=== PATIENT | female | born 1955 | race Caucasian/White ===

== ENCOUNTER 2024-03-17 13:10 | Emergency (ER) | payer MEDICARE, SELFPAY ==
[2024-03-17 13:12] VITALS: BP 171/83; PULSE 126; RESP 16; TEMP 36.3; O2SAT 99
[2024-03-17 13:25] VITALS: BMI 42.0
--- NOTE | 2024-03-17 13:51 | CT_ITS ---
STUDY: CT Abdomen And Pelvis W/ Contrast Injection 03/17/2024 2:41 PM REASON FOR EXAM: Female, 68 years old. Abdominal pain L flank pain Individualized dose optimization techniques were used for this CT. COMPARISON: 08/11/2014 TECHNIQUE: CT Abdomen And Pelvis W/ Contrast Injection IV 100mL [id number] FINDINGS: There are atherosclerotic calcifications of visualized coronary arteries. 5.3mm right lower lobe subpleural nodule. Stable hypodensities in the liver. Normal gallbladder and extrahepatic biliary system. Normal spleen. Normal pancreas. Normal bilateral adrenal glands. No acute findings of the right kidney. No acute findings of the left kidney. Normal visualized stomach. Normal small intestine. There are multiple colonic diverticula consistent with diverticulosis. The appendix is visualized and appears normal. There are calcifications of the abdominal aorta. This is consistent for atherosclerotic disease. There is NO abdominal aortic aneurysm. Vascular workup can be obtained based on clinical correlation. Normal inferior vena cava. Subcentimeter mesenteric lymph nodes. Dictated There is atrophy of the uterus. There is an umbilical hernia containing fat. There are diffuse degenerative changes of the visualized lumbar spine. Degenerative findings in the uterus. There is bilateral neural foraminal stenosis at L4-5 and L5-S1. CT/Abdomen/Pelvis W IV Cont ONLY IMPRESSION: Urinary bladder wall has wall thickening. This can be related to a partially contractile state. However, a cystitis is not excluded. Urinalysis should be performed in an effort to exclude cystitis. Other findings as above. Electronically Signed: Philip Harris MD at 14:45 EST ,
[2024-03-17 14:05] LABS: Bacteria 0 SEEN /hpf (None Seen); Mucous, Urine 0 SEEN /hpf (<or=2+); Squamous Epithelial Cells - UA 0 SEEN /hpf (5-10)
[2024-03-17 14:07] LABS: Absolute Lymphocyte Count 2.11 X10^3/uL (0.83-4.51); Absolute Neutrophil Count 13.9 X10^3/uL (2.0-7.7); Basophil# 0.07 X10^3/uL; Basophil% 0.4 % (0-1); Eosinophil# 0.02 X10^3/uL; Eosinophils% 0.1 % (0-5); Hemoglobin 14.6 g/dL (12.0-15.0); Lymphocyte # 2.11 X10^3/ul (0.83-4.51); Mean Corp Hgb Conc 33.2 g/dL (32-36); Mean Corpuscular Hgb 28.2 pg (27.0-32.0); Mean Corpuscular Volume 84.9 fL (81-99); Mean Platelet Vol. 9.6 fl (6.2-12.0); Monocyte# 1.41 X10^3/uL; NRBC Flagged by Analyzer 0 % (0-5); Neutrophil # 13.87 X10^3/uL (2.7-7.7); Platelet Count 335 K/mm3 (150-450); RBC Distribution Width CV 13.5 % (11.6-14.6); RBC Distribution Width SD 41.8 fl (35.1-43.9); Red Blood Count 5.18 M/mm3 (4.2-5.4); White Blood Count 17.6 K/mm3 (4.4-11.0)
[2024-03-17 14:21] LABS: Color, Urine Yellow (Yellow); Glucose, Dipstick Normal (Normal); Ketone-Dipstick Negative (Negative); Leukocyte Esterase-Dipstick 500 /ul (Negative); Nitrite-Dipstick Negative (Negative); Occult Blood-Urine 250 /ul (Negative); Protein-Dipstick 15 mg/dl (Negative); Specific Gravity, Urine 1.005 (1.002-1.030); Urine Bilirubin Dipstick Negative (Negative); Urine Clarity Clear (Clear); Urine Urobilinogen Normal (Normal); Urine pH 6.5 (5.0 - 8.0)
[2024-03-17 14:26] LABS: Red Blood Cells-Urine 0-5 SEEN /hpf (0-5); White Blood Cells 0-5 SEEN /hpf (0-5)
[2024-03-17 14:43] LABS: Anion Gap 10 (5-15); BUN 13 mg/dL (7-18); BUN/Creat Ratio 13.1 RATIO (10-20); Calcium,Total 9.5 mg/dL (8.5-10.1); Chloride 106 mmol/L (98-107); Creatinine, Serum 0.99 mg/dL (0.55-1.02); EST Glomerular Filtration Rate 59 mL/min (>60); Est Glom Filt Rate - Afr Amer 72 mL/min (>60); Estimated Creatinine Clearance 56.11 ml/min; Glucose 124 mg/dL (74-106); Potassium 3.6 mmol/L (3.5-5.1); Sodium Level 138 mmol/L (136-145)
--- NOTE | 2024-03-17 15:12 | EDS_ITS ---
HPI <MONICA Boyce - Last Filed: 03/17/24 18:46> HPI - Female History of Present Illness Chief Complaint: Complaint Narrative Narrative: Patient presenting today due to urinary frequency, urgency, dysuria that started yesterday. She reports hematuria started this morning. She feels like she could have a UTI. She also reports that she has had intermittent left lower quadrant abdominal pain that radiates to her left flank for several weeks but has noticed it more over the last 3 days. She denies any history of kidney stones. She denies fever, chills, nausea, and vomiting. PFSH <MONICA Boyce - Last Filed: 03/17/24 18:46> PFSH Home Medications ?Medication ?Instructions ?Recorded ?Last Taken ?Type ciprofloxacin HCl 500 mg tablet 500 mg PO BID ##20 08/11/14 Unknown Rx metronidazole 500 mg tablet 500 mg PO Q8 #30 tabs 08/11/14 Unknown Rx nitrofurantoin 100 mg PO Q12H 5 days #9 caps 03/17/24 Unknown Rx monohydrate/macrocrystals 100 mg capsule (Macrobid) Allergy/AdvReac Type Severity Reaction Status Date / Time cefaclor (From Ceclor) Allergy Shortness Verified 03/17/24 13:12 of breath cephalexin monohydrate (From Allergy Shortness Verified 03/17/24 13:12 Keflex) of breath Social History Smoking Status: Current every day smoker tobacco type: cigarettes ROS <MONICA Boyce - Last Filed: 03/17/24 18:46> ROS ED Constitutional Constitutional ED: Denies chills or fever(s) Cardiovascular Cardiovascular: Denies chest pain Respiratory/Chest Respiratory/Chest: Denies dyspnea Gastrointestinal Gastrointestinal: Reports abdominal pain; Denies constipation, diarrhea, nausea or vomiting Genitourinary Genitourinary ED: Reports dysuria, hematuria and urinary frequency Musculoskeletal Musculoskeletal: Reports back pain Integumentary Denies rash Neurologic Neurologic: Denies weakness EXAM <MONICA Boyce - Last Filed: 03/17/24 18:46> Physical Exam Const Vital Signs: 03/17/24 13:12 Temperature 97.4 F L Temperature Source Temporal Pulse Rate 126 H Respiratory Rate 16 Blood Pressure 171/83 H Blood Pressure Mean 112 Pulse Ox 99 Oxygen Delivery Method Room Air Positive well nourished, well developed and no apparent distress General Appearance ED: well developed HEENT Reports normocephalic and head/scalp atraumatic Mouth ED: Yes moist mucous membranes normal Eyes PERRL and EOMs intact bilaterally Neck full ROM and supple Chest Wall inspection of chest normal Resp normal respiratory effort and clear to auscultation bilaterally Cardio regular rate and regular rhythm GI soft to palpation, non-distended and no masses GI Narrative: Left lower quadrant tenderness to palpation with no rigidity or guarding. Back/Spine normal ROM and normal to inspection General Back: Negative for CVA tenderness Thoracic Spine / Upper Back: Negative for thoracic spinal tenderness Lumbar Spine / Lower Back: Negative for lumbar spinal tenderness Extremity normal to inspection and full ROM Neuro oriented x3, CN's II-XII intact bilaterally, moves all extremities, no focal motor deficits and no sensory deficits noted Sensorium / Orientation: awake and alert Psych mental status grossly normal and thought process normal Skin no rashes or lesions noted and no wounds <Dr. Kevan Rosario DO - Last Filed: 03/17/24 15:24> Physical Exam Const Vital Signs: 03/17/24 13:12 Temperature 97.4 F L Temperature Source Temporal Pulse Rate 126 H Respiratory Rate 16 Blood Pressure 171/83 H Blood Pressure Mean 112 Pulse Ox 99 Oxygen Delivery Method Room Air MDM <MONICA Boyce - Last Filed: 03/17/24 18:46> [facility] Narrative Medical decision making narrative: Patient presenting today due to urinary frequency, urgency, and dysuria that started yesterday, hematuria started today. She did have an episode of urinary incontinence yesterday where she felt she had to go to the bathroom but could not make it there in time. Examination does sound consistent with a UTI. She has had intermittent left flank/left lower quadrant abdominal pain off and on for a while but has noticed it more frequently over the past 3 days. I offered analgesia and she declined. Labs obtained, she has a WBC of 17.6, this was also slightly elevated in previous labs. Her BMP is unremarkable. UA shows 500 leukocytes and occult blood. CT scan of the abdomen and pelvis was obtained to assess for kidney stone, pyelonephritis, mass, and other etiology. This shows bladder wall thickening but otherwise is unremarkable. Given she does have symptoms of cystitis, we will start her on Macrobid with first dose here. Urinary culture obtained. She reports that her sister does have a history of bladder cancer, I did refer the patient to urology and recommended that she fo llow-up given her hematuria and family history. She will be discharged home in stable condition. Lab Data Labs: Laboratory Results - last 24 hr 03/17/24 14:00 WBC 17.6 H RBC 5.18 Hgb 14.6 Hct 44.0 MCV 84.9 MCH 28.2 MCHC 33.2 RDW Std Deviation 41.8 RDW Coeff of Scarlett 13.5 Plt Count 335 MPV 9.6 Immature Gran % (Auto) 0.500 Neut % (Auto) 79.0 H Lymph % (Auto) 12.0 L [place] % (Auto) 8.0 Eos % (Auto) 0.1 Baso % (Auto) 0.4 Absolute Neuts (auto) 13.9 H Absolute Lymphs (auto) 2.11 Nucleated RBC % 0 Sodium 138 Potassium 3.6 Chloride 106 Carbon Dioxide 22.0 Anion Gap 10 BUN 13 Creatinine 0.99 Estim Creat Clear Calc 56.11 Est GFR (MDRD) Af Amer 72 Est GFR (MDRD) Non-Af 59 L BUN/Creatinine Ratio 13.1 Glucose 124 H Calcium 9.5 Urine Color Yellow Urine Clarity Clear Urine pH 6.5 Ur Specific [place] 1.005 Urine Protein 15 H Urine Glucose (UA) Normal Urine Ketones Negative Urine Occult Blood 250 H Urine Nitrite Negative Urine Bilirubin Negative Urine Urobilinogen Normal Ur Leukocyte Esterase 500 H Urine RBC 0-5 SEEN Urine WBC 0-5 SEEN Ur Squamous Epith Cells 0 SEEN Urine Bacteria 0 SEEN Urine Mucus 0 SEEN Radiography Diagnostic Testing: Clinical Impression(s) from Imaging Studies Abdomen/Pelvis CT 03/17/24 13:51 IMPRESSION: Urinary bladder wall has wall thickening. This can be related to a partially contractile state. However, a cystitis is not excluded. Urinalysis should be performed in an effort to exclude cystitis. Other findings as above. Electronically Signed: Philip Harris MD at 14:45 EST , <Dr. Kevan Rosario, DO - Last Filed: 03/17/24 15:24> [facility] Lab Data Attestation: I reviewed the patient's lab results. Labs: Laboratory Results - last 24 hr 03/17/24 14:00 WBC 17.6 H RBC 5.18 Hgb 14.6 Hct 44.0 MCV 84.9 MCH 28.2 MCHC 33.2 RDW Std Deviation 41.8 RDW Coeff of Scarlett 13.5 Plt Count 335 MPV 9.6 Immature Gran % (Auto) 0.500 Neut % (Auto) 79.0 H Lymph % (Auto) 12.0 L [place] % (Auto) 8.0 Eos % (Auto) 0.1 Baso % (Auto) 0.4 Absolute Neuts (auto) 13.9 H Absolute Lymphs (auto) 2.11 Nucleated RBC % 0 Sodium 138 Potassium 3.6 Chloride 106 Carbon Dioxide 22.0 Anion Gap 10 BUN 13 Creatinine 0.99 Estim Creat Clear Calc 56.11 Est GFR (MDRD) Af Amer 72 Est GFR (MDRD) Non-Af 59 L BUN/Creatinine Ratio 13.1 Glucose 124 H Calcium 9.5 Urine Color Yellow Urine Clarity Clear Urine pH 6.5 Ur Specific [place] 1.005 Urine Protein 15 H Urine Glucose (UA) Normal Urine Ketones Negative Urine Occult Blood 250 H Urine Nitrite Negative Urine Bilirubin Negative Urine Urobilinogen Normal Ur Leukocyte Esterase 500 H Urine RBC 0-5 SEEN Urine WBC 0-5 SEEN Ur Squamous Epith Cells 0 SEEN Urine Bacteria 0 SEEN Urine Mucus 0 SEEN Radiography Diagnostic Testing: Clinical Impression(s) from Imaging Studies Abdomen/Pelvis CT 03/17/24 13:51 IMPRESSION: Urinary bladder wall has wall thickening. This can be related to a partially contractile state. However, a cystitis is not excluded. Urinalysis should be performed in an effort to exclude cystitis. Other findings as above. Electronically Signed: Philip Harris MD at 14:45 EST , Treatment and Re-Evaluation Narrative: I have personally performed a face to face assessment of the patient and have reviewed the TARI Note. I performed a substantive portion of the visit including all aspects of the following. My medina findings include: History is 68-year-old female noted that yesterday she began to have urinary frequency urgency pressure and some dysuria. She noted hematuria today. She has been having a intermittent sharp pain in the left side of her abdomen for a wild. She states that it is very minimal family states it seems more than minimally. No reported fevers. Exam is well-appearing female sitting comfortably in a chair. No CVA tenderness. She is afebrile she clinically appears well. Her initial heart rate of 126 out in triage was after ambulating then. Sitting there in the chair she is about 92 bpm Medical Decision Making white count nonspecifically is elevated at 17.6. 79 neutrophils. Normal creatinine glucose 124. Urinalysis 3-5 red cells are 5 white cells 0 bacteria seen negative nitrates. She is positive for leukocyte esterase. Clinically her symptoms are consistent with a UTI however microscopically does not support it. Her CT is rather unremarkable fluid findings to explain her symptomology. I do not think it is unreasonable to treat her clinical symptoms with an antibiotic do a urine culture and have the patient follow-up or return if worsening. She is comfortable this plan Discharge Plan Triage Chief Complaint: Complaint ED Midlevel Provider: Valerie Magana ED Provider: Kevan Rosario Dx/Rx/DC Orders Clinical Impression: Hematuria, Chronic left-sided back pain, Urinary frequency Instructions: ED Hematuria, ED Cystitis Female Adult Prescriptions: New nitrofurantoin monohyd/m-cryst [Macrobid] 100 mg capsule 100 mg PO Q12H 5 Days Qty: 9 0RF Rx Instructions: must administer with a meal/food No Action metronidazole 500 MG tablet 500 mg PO Q8 Qty: 30 0RF ciprofloxacin HCl 500 MG tablet 500 mg PO BID Qty: 20 0RF Primary Care Provider: Chavo Lr Referrals: Gena Miner MD [Med Staff - Active Staff] - 3-5 Days Chavo Lr MD [Primary Care Provider] - 5-7 Days Activity Restrictions/Additional Instructions: Follow-up with urology d return for any worsening of your symptoms. Print Language: Serbian Disposition Disposition: Home, Self Care Discharge Date/Time: 03/17/24 15:30
[2024-03-17] MEDS: Nitrofurantoin Macrocrystals 100 MG Capsule PO (15:20)
== END 2024-03-17 15:30 | disposition home or self-care (01) ==
PROVIDERS: Physician Assistant; Emergency Provider Emergency Medicine; PCP Family Medicine; Visit Provider Emergency Medicine
DX: R35.0 Frequency of micturition (principal); R31.9 Hematuria, unspecified; R10.32 Left lower quadrant pain; G89.29 Other chronic pain; M54.9 Dorsalgia, unspecified; F17.210 Nicotine dependence, cigarettes, uncomplicated; Z80.52 Family history of malignant neoplasm of bladder
CPT/HCPCS: 74177; 80048; 81001; 85025; 87077; 87086; 87088; 87186; 99282; Q9967

== ENCOUNTER 2024-08-13 04:03 | Inpatient (IN) | payer MEDICARE, SELFPAY ==
[2024-08-13] VITALS (15 sets, daily range): BP systolic 106–204; BP diastolic 56–112; PULSE 65–117; RESP 14–18; TEMP 36.2–36.9; O2SAT 94–99; BMI 44.8; BMI 44.3
--- NOTE | 2024-08-13 04:51 | CT_ITS ---
PROCEDURE: CTA ABD/PELVIS W/WO CONTRAST 08/13/2024 REASON FOR EXAM: GI BLEED TECHNIQUE: CTA ABD/PELVIS W/WO CONTRAST multiplanar Coronal and Sagittal images were obtained. CONTRAST: VOLUME: mL One or more dose reduction techniques were used (e.g., Automated exposure control, adjustment of the mA and/or kV according to patient size, use of iterative reconstruction technique). RADIATION DOSE SUMMARY: CTDlvol: mGy DLP: mGycm COMPARISON: 03-17-2024 FINDINGS: Newly developed long segment of mural thickening and edema of the distal transverse colon involving the splenic flexure and proximal descending colon with stranding of the pericolic fat and congested vascular arcades, possibly inflammatory. Related endoluminal hyperdense areas suggestive of active bleeding. Advise clinical and laboratory correlation. Patent supra-renal and infrarenal abdominal aorta showing patent enhancing lumen with diffuse irregular intimal thickening, scattered calcified and fibrofatty atheromatous plaques. No tight stenosis, aneurysmal dilatation or dissecting intimal flaps. The superior mesenteric artery and its main branches appears patent and showing non significant atherosclerotic changes with no significant stenotic lesions. The celiac artery and its branches appear patent and showing non significant atherosclerotic changes with no significant stenotic lesions. Moderate ostial stenosis of the inferior mesenteric artery with attenuated yet patent rest of its course. Patent renal arteries showing non significant ostial atheromatous plaques. No significant stenotic lesions. Dual supply of the right kidney. Both common iliac, internal and external iliac arteries appear patent and homogenously enhancing showing non-significant atherosclerotic changes with no significant stenotic lesions. No evidence of luminal thrombosis or stenotic lesions. Stable mild colonic diverticulosis. No diverticulitis. The small bowel loops are unremarkable. Mild gastric wall thickening, possibly gastritis. Stable hepatic bi-lobar cysts. No dilated biliary tracts. Gall bladder shows no intraluminal dense calculi. Clear surrounding fat planes. Normal appearance of the pancreas. No obvious pancreatic masses. The spleen, adrenals and IVC are unremarkable. Both kidneys are of average size and shape with rather preserved parenchymal thickness. No renal calculi. No hydronephrosis. Regular distension of the urinary bladder with no calculi, masses or diverticular out pouches. No obvious masses related to the pelvic organs. No ascites. No free peritoneal air. No pathologically enlarged lymph nodes. Scanned osseous structures show thoracolumbar spondylosis. Scanned lung bases show basal atelectatic plates. CT/CTA Abd/Pelvis W/WO Contrast IMPRESSION: Newly developed long segment of mural thickening and edema of the left colon wi th stranding of the pericolic fat and congested vascular arcades, possibly inflammatory. Related endoluminal hyperdense areas s uggestive of active bleeding. Advise clinical and laboratory correlation. Patent abdominal aorta and its branches showing atherosclerotic changes with no aneurysmal dilatation, stenotic lesions or hypodense thrombi. Stable rest of the study findings Reading [facility] [id number]
--- OUTSIDE RECORDS SUMMARY | 2024-08-13 05:01 | XMS RPT_ITS | CCD ---
Author Organization [facility] Care Team Providers Care Data Consultant Name Role Phone Preston Lr MD Primary Care Provider Preston Lr Primary Care Unavailable Kevan Rosario Attending Unavailable Allergies Allergy Classification Reported Allergen(s) Allergy Type Date of Onset Reaction(s) Facility (18 sources) Cephalexin Drug Allergy 07-27-2006 [facility] (1 source) Cefaclor Drug Allergy 03-17-2024 [facility] (1 source) Cephalexin Drug Allergy 03-17-2024 [facility] Medications Current Medications Medication Drug Class(es) Dates Sig (Normalized) Sig (Original) acetaminophen 250 mg / aspirin 250 mg / caffeine 65 mg oral tablet (18 sources) Platelet Aggregation Inhibitor, Nonsteroidal Anti-inflammatory Drug, Central Nervous System Stimulant, Methylxanthine Start: 08-20-2014 take 2 tablets by mouth every twelve hours as needed Aspirin-Acetaminoph en-Caffeine (EXCEDRIN MIGRAINE) 250-250-65 mg per tablet Take 2 tablets by mouth twice daily as needed for Pain. 0 08/20/2014 Active Comment on above: Take 2 tablets by [facility] twice daily as needed for Pain. acetaminophen 325 mg / HYDROcodone bitartrate 5 mg oral tablet (18 sources) Opioid Agonist Start: 07-15-2016 take 1 tablet by mouth every six hours as needed HYDROcodone-acetami nophen (NORCO) 5-325 mg per tablet Take 1 tablet by mouth every 6 hours as needed. 20 tablet 07/15/2016 Active Comment on above: [facility] tablet by [facility] 6 hours as needed. ciprofloxacin 500 mg oral tablet (1 source) Quinolone Antimicrobial Start: 10-07-2021 End: 10-14-2021 take 1 tablet by mouth twice daily ciprofloxacin HCl (CIPRO) 500 mg tablet Take 1 tablet by mouth twice daily for 7 days. 14 tablet 0 10/07/2021 10/14/2021 Active Comment on above: Take 1 tablet by brissa th twice daily for 7 days. ibuprofen 200 mg oral tablet (18 sources) Nonsteroidal Anti-inflammatory Drug take 3 tablets by mouth every four hours as needed ibuprofen (MOTRIN) 200 mg tablet Take 600 mg by mouth every 4 hours as needed. Active Comment on above: Take 600 mg by mouth every 4 hours as needed. iv contrast (will be provided with radiology test) (1 source) Start: 10-13-2021 End: 10-14-2021 iv contrast (will be provided with radiology test) Indications: Liver lesion MRI Liver Inject, intravenously, once for 1 dose. No IV access, insert saline lock prior to the beginning of sedation, infusion, injection of imaging exam. Discontinue saline lock post exam. If Pt. has a central line or IVAD, may access for administration according to line specific nursing protocol. Once exam is complete flush line and de-access according to line specific nursing protocol in the MR contrast administration guidelines link. 1 Each 0 10/13/2021 10/14/2021 Active Comment on above: MRI Liver Inject, in travenously, once for 1 dose. No IV access, insert saline lock prior to the beginning of sedation, infusion, injection of imaging exam. Discontinue saline lock post exam. If Pt. has a central line or IVAD, may access for administration according to line specific nursing protocol. Once exam is complete flush line and de-access according to line specific nursing protocol in the MR contrast administration guidelines link. metroNIDAZOLE 500 mg oral tablet (1 source) Nitroimidazole Antimicrobial Start: 10-07-2021 End: 10-14-2021 take 1 tablet by mouth every eight hours metroNIDAZOLE (FLAGYL) 500 mg tablet Take 1 tablet by mouth every 8 hours for 7 days. 21 tablet 0 10/07/2021 10/14/2021 Active Comment on above: Take 1 tablet by brissa th every 8 hours for 7 days. perflutren lipid microspheres 1.3 mL in NaCl (PF) 0.9% 10 mL injection (DEFINITY) (10 sources) Start: 10-13-2021 End: 01-12-2023 perflutren lipid microspheres 1.3 mL in NaCl (PF) 0.9% 10 mL injection (DEFINITY) 125 ml sodium chloride 9 mg/ml prefilled syringe (10 sources) Start: 10-13-2021 End: 01-12-2023 sodium chloride 0.9 % (flush) 10 mL (BD POSIFLUSH) Completed/Discontinued Medications Medication Drug Class(es) Dates Sig (Normalized) Sig (Original) polyethylene glycol 3350 167334 mg / potassium chloride 2970 mg / sodium bicarbonate 6740 mg / sodium chloride 5860 mg / sodium sulfate 48389 mg powder for oral solution (1 source) Osmotic Laxative Start: 11-09-2021 End: 11-09-2021 peg 3350-Electrolytes (GOLYTELY) 236-22.74-6.74 -5.86 gram suspension Take 4,000 mL by mouth one time only for 1 dose. 1 Each 0 11/09/2021 11/09/2021 Comment on above: Take 4,000 mL by brissa th one time only for 1 dose. Problems Active Problems Problem Classification Problem Date Documented Da te Episodic/Chronic Diabetes mellitus without complication (1 source) Increased glucose level; Translations: [Other abnormal glucose] Episodic Gastrointestinal hemorrhage (2 sources) Hematochezia; Translations: [Melena] Episodic Genitourinary symptoms and ill-defined conditions (2 sources) Increased frequency of urination; Translations: [Frequency of micturition] Onset: 04-07-2024 Episodic Heart valve disorders (20 sources) Mitral valve prolapse; Translations: [Nonrheumatic mitral (valve) prolapse] Onset: 10-09-2014 10-09-2014 Chronic Immunizations and screening for infectious disease (2 sources) Viral screening status; Translations: [Encounter for screening for other viral diseases] Episodic Other circulatory disease (1 source) Disorder of aorta; 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, unspecified] Chronic Other circulatory disease (1 source) Elevated blood-pressure reading without diagnosis of hypertension; Translations: [Elevated blood-pressure reading, without diagnosis of hypertension] Episodic Other congenital anomalies (19 sources) Congenital genu varum; 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] Onset: 03-23-2010 08-29-2011 Chronic Other liver diseases (2 sources) Lesion of liver; Translations: [Liver disease, unspecified] Chronic Other liver diseases (12 sources) Liver cyst; Translations: [Other specified diseases of liver] Onset: 11-04-2021 11-04-2021 Chronic Other liver diseases (2 sources) Alkaline phosphatase raised; Translations: [Abnormal levels of other serum enzymes] Episodic Other nutritional; endocrine; and metabolic disorders (1 source) Weight gain; Translations: [Abnormal weight gain] Episodic Other screening for suspected conditions (not mental disorders or infectious disease) (5 sources) Patient encounter status; Translations: [Encounter for screening for malignant neoplasm of colon] Episodic Past or Other Problems Problem Classification Problem Date Documented Date Episodic/Chronic Acute bronchitis (6 sources) Acute bronchitis; Translations: [Acute bronchitis, unspecified] Onset: 07-27-2006 Resolved: 03-23-2010 03-23-2010 Episodic Noninfectious gastroenteritis (10 sources) Colitis; Translations: [Noninfective gastroenteritis and colitis, unspecified] Onset: 08-11-2014 Resolved: 10-09-2014 Episodic Nonspecific chest pain (6 sources) Chest pain; Translations: [Chest pain, unspecified] Onset: 09-18-2006 Resolved: 03-23-2010 03-23-2010 Episodic Substance-related disorders (6 sources) Tobacco user; Translations: [Nicotine dependence, unspecified, uncomplicated] Onset: 03-23-2010 Resolved: 07-15-2016 07-15-2016 Chronic Results Test Name Value Interpretation Reference Range Facil ity Urine Cultureon 03-19-2024 [facility] Presumptive E. coli [place] Count 25,000-50,000 Presumptive E. coli: REACTION Ampicillin Islt ALISIA >=32 Ampicillin+Sulbac Islt ALISIA 4 S Cefepime Islt ALISIA <=0.12 S cefTRIAXone Islt ALISIA <=0.25 S Ciprofloxacin Islt ALISIA 0.5 I B-Lactamase Extended Susc Islt NEG Gentamicin Islt ALISIA <=1 S levoFLOXacin Islt ALISIA 1 I Meropenem Islt ALISIA <=0.25 S Nitrofurantoin Islt ALISIA <=16 S Pip+Tazo Islt ALISIA <=4 S TMP SMX Islt ALISIA <=20 S Normal [facility] Comment on above: Performed By: #### M 100.220 #### [facility] [address] [place], [place], [id number] Abdomen/Pelvis W IV Cont ONL Yon 03-17-2024 Abdomen/Pelvis W IV Cont ONLY [facility] Imaging Services [address] [place], [place] [id number] Abdomen/Pelvis W IV Cont ONLY MR#: [id number] Acct: [id number] Name: VERO PORTILLO Rep #: [id number] : 1955 F 68 From: Philip Reese PCP: Dr. Preston Lr MD Status: REG ER Study: Abdomen/Pelvis W IV Cont ONLY Date of Exam: Exam# [id number] Ordering Dr: Valerie Magana [id number] STUDY: CT Abdomen And Pelvis W/ Contrast Injection 03/17/2024 2:41 PM REASON FOR EXAM: Female, 68 years old. Abdominal pain L flank pain Individualized dose optimization techniques were used for this CT. COMPARISON: 08/11/2014 TECHNIQUE: CT Abdomen And Pelvis W/ Contrast Injection IV 100mL [id number] FINDINGS: There are atherosclerotic calcifications of visualized coronary arteries. 5.3mm right lower lobe subpleural nodule. Stable hypodensities in the liver. Normal gallbladder and extrahepatic biliary system. Normal spleen. Normal pancreas. Normal bilateral adrenal glands. No acute findings of the right kidney. No acute findings of the left kidney. Normal visualized stomach. Normal small intestine. There are multiple colonic diverticula consistent with diverticulosis. The appendix is visualized and appears normal. There are calcifications of the abdominal aorta. This is consistent for atherosclerotic disease. There is NO abdominal aortic aneurysm. Vascular workup can be obtained based on clinical correlation. Normal inferior vena cava. Subcentimeter mesenteric lymph nodes. Dictated There is atrophy of the uterus. There is an umbilical hernia containing fat. There are diffuse degenerative changes of the visualized lumbar spine. Degenerative findings in the uterus. There is bilateral neural foraminal stenosis at L4-5 and L5-S1. CT/Abdomen/Pelvis W IV Cont ONLY IMPRESSION: Urinary bladder wall has wall thickening. This can be related to a partially contractile state. However, a cystitis is not excluded. Urinalysis should be performed in an effort to exclude cystitis. Other findings as above. Electronically Signed: Philip Harris MD at 14:45 EST , CC: Dr. Preston Lr MD; MONICA Boyce Clerk Analyst: Signed Normal [facility] Basic Metabolic Profile (BMP )on 03-17-2024 BUN/CRE 13.1 RATIO Normal 10-20 [facility] Comment on above: Performed By: #### L 100.0100, L500.2500 #### [facility] [address] [place], [address] CA,Total 9.5 mg/dL Normal 8.5-10.1 [facility] Comment on above: Performed By: #### L 100.0100, L500.2500 #### [facility] [address] [place], [address] Chloride [Moles/Vol] 106 mmol/L Normal 98-107 [facility] Comment on above: Performed By: #### L 100.0100, L500.2500 #### [facility] [address] [place], [address] CO2 [Moles/Vol] 22.0 mmol/L Normal 21.0-32.0 [facility] Comment on above: Performed By: #### L 100.0100, L500.2500 #### [facility] [address] [place], [address] Creatinine [Mass/Vol] 0.99 mg/dL Normal 0.55-1.02 [facility] Comment on above: Result Comment: The validity of the calculated GFR GFRAA in patients over 70 years has not been determined. Clinical correlation is essential. Performed By: #### L 100.0100, L500.2500 #### [facility] [address] [place], [address] ECRCL 56.11 ml/min Normal [facility] Comment on above: Performed By: #### L 100.0100, L500.2500 #### [facility] [address] [place], [address] EST GFR - AA 72 mL/min Normal >60 [facility] Comment on above: Result Comment: Afri can [place] GFR Calc Performed By: #### L 100.0100, L500.2500 #### [facility] [address] [place], [address] GAP 10 Normal 5-15 [facility] Comment on above: Performed By: #### L 100.0100, L500.2500 #### [facility] [address] [place], [address] GFR/1.73 sq M.predicted among non-blacks MDRD (S/P/Bld) [Vol rate/Area] 59 mL/min/{1.73_m2} Low >60 [facility] Comment on above: Result Comment: Non- GFR Calc Performed By: #### L 100.0100, L500.2500 #### [facility] [address] [place], [address] Glucose [Mass/Vol] 124 mg/dL High 74-106 [facility] Comment on above: Result Comment: Fast ing Glucose result from 100 to 125 mg/dL suggests IMPAIRED HOMEOSTASIS per A.D.A. criteria. Performed By: #### L 100.0100, L500.2500 #### [facility] [address] [place], [address] Potassium [Moles/Vol] 3.6 mmol/L Normal 3.5-5.1 [facility] Comment on above: Performed By: #### L 100.0100, L500.2500 #### [facility] [address] [place], [address] Sodium [Moles/Vol] 138 mmol/L Normal 136-145 [facility] Comment on above: Performed By: #### L 100.0100, L500.2500 #### [facility] [address] [place], [address] Urea nitrogen [Mass/Vol] 13 mg/dL Normal 7-18 [facility] Comment on above: Performed By: #### L 100.0100, L500.2500 #### [facility] [address] [place], [address] CBC W/Diff, Automatedon 02-27 Absolute Lymph 2.11 X10 3/uL Normal 0.83-4.51 [facility] Comment on above: Performed By: #### L 100.0100, L500.2500 #### [facility] [address] [place], [address] Absolute Neut 13.9 X10 3/uL High 2.0-7.7 [facility] Comment on above: Performed By: #### L 100.0100, L500.2500 #### [facility] [address] [place], [address] Basophils/100 WBC (Bld) 0.4 % Normal 0-1 [facility] Comment on above: Performed By: #### L 100.0100, L500.2500 #### [facility] [address] [place], [address] Eosinophils/100 WBC (Bld) 0.1 % Normal 0-5 [facility] Comment on above: Performed By: #### L 100.0100, L500.2500 #### [facility] [address] [place], [address] Erythrocyte distribution width (RBC) [Ratio] 13.5 % Normal 11.6-14.6 [facility] Comment on above: Performed By: #### L 100.0100, L500.2500 #### [facility] [address] [place], [address] Hematocrit (Bld) [Volume fraction] 44.0 % Normal 37-47 [facility] Comment on above: Performed By: #### L 100.0100, L500.2500 #### [facility] [address] [place], [address] Hemoglobin (Bld) [Mass/Vol] 14.6 g/dL Normal 12.0-15.0 [facility] Comment on above: Performed By: #### L 100.0100, L500.2500 #### [facility] [address] [place], [address] IG% 0.500 Normal 0.0-0.9 [facility] Comment on above: Result Comment: IG% - Immature Granulocytes (promyelocytes, myelocytes and metamyelocytes) > 1% indicates that a LEFT SHIFT is Present. Performed By: #### L 100.0100, L500.2500 #### [facility] [address] [place], [address] Lymphocytes/100 WBC (Bld) 12.0 % Low 19-41 [facility] Comment on above: Performed By: #### L 100.0100, L500.2500 #### [facility] [address] [place], [address] MCH (RBC) [Entitic mass] 28.2 pg Normal 27.0-32.0 [facility] Comment on above: Performed By: #### L 100.0100, L500.2500 #### [facility] [address] [place], [address] MCHC (RBC) [Mass/Vol] 33.2 g/dL Normal 32-36 [facility] Comment on above: Performed By: #### L 100.0100, L500.2500 #### [facility] [address] [place], [address] MCV (RBC) [Entitic vol] 84.9 fL Normal 81-99 [facility] Comment on above: Performed By: #### L 100.0100, L500.2500 #### [facility] [address] [place], [address] Monocytes/100 WBC (Bld) 8.0 % Normal 0-10 [facility] Comment on above: Performed By: #### L 100.0100, L500.2500 #### [facility] [address] [place], [address] Neutrophils/100 WBC (Bld) 79.0 % High 47-70 [facility] Comment on above: Performed By: #### L 100.0100, L500.2500 #### [facility] [address] [place], [address] Nucleated RBC (Bld) [#/Vol] 0 10*3/uL Normal 0-5 [facility] Comment on above: Performed By: #### L 100.0100, L500.2500 #### [facility] [address] [place], [address] Platelet mean volume (Bld) [Entitic vol] 9.6 fL Normal 6.2-12.0 [facility] Comment on above: Performed By: #### L 100.0100, L500.2500 #### [facility] [address] [place], [address] Platelets (Bld) [#/Vol] 335 10*3/uL Normal 150-450 [facility] Comment on above: Performed By: #### L 100.0100, L500.2500 #### [facility] [address] [place], [address] RBC (Bld) [#/Vol] 5.18 10*6/uL Normal 4.2-5.4 [facility] Comment on above: Performed By: #### L 100.0100, L500.2500 #### [facility] [address] [place], [address] RDW SD 41.8 fl Normal 35.1-43.9 [facility] Comment on above: Performed By: #### L 100.0100, L500.2500 #### [facility] [address] [place], [address] WBC (Bld) [#/Vol] 17.6 10*3/uL High 4.4-11.0 [facility] Comment on above: Performed By: #### L 100.0100, L500.2500 #### [facility] [address] [place], [address] Emergency Department Summary on 03-17-2024 Emergency Department Summary [facility] Medical Records Department [address] [place] [address] Emergency Department Summary 03/17/24 MR#: [id number] Acct: [id number] Name: VERO PORTILLO Rep #: [id number] : 1955 68 From: Valerie ANDERSON PCP: Dr. Preston Lr MD Status:DEP ER Location: ED HPI HPI - Female History of Present Illness Chief Complaint: Complaint Narrative Narrative: Patient presenting today due to urinary frequency, urgency, dysuria that started yesterday. She reports hematuria started this morning. She feels like she could have a UTI. She also reports that she has had intermittent left lower quadrant abdominal pain that radiates to her left flank for several weeks but has noticed it more over the last 3 days. She denies any history of kidney stones. She denies fever, chills, nausea, and vomiting. PFSH PFSH Home Medications ???Medication ???Instructions ???Recorded ???Last Taken ???Type ciprofloxacin HCl 500 mg tablet 500 mg PO BID ##20 08/11/14 Unknown Rx metronidazole 500 mg tablet 500 mg PO Q8 #30 tabs 08/11/14 Unknown Rx nitrofurantoin 100 mg PO Q12H 5 days #9 caps 03/17/24 Unknown Rx monohydrate/macrocrys tals 100 mg capsule (Macrobid) Allergy/AdvReac Type Severity Reaction Status Date / Time cefaclor (From Ceclor) Allergy Shortness Verified 03/17/24 13:12 of breath cephalexin monohydrate (From Allergy Shortness Verified 03/17/24 13:12 Keflex) of breath Social History Smoking Status: Current every day smoker tobacco type: cigarettes ROS ROS ED Constitutional Constitutional ED: Denies chills or fever(s) Cardiovascular Cardiovascular: Denies chest pain Respiratory/Chest Respiratory/Chest: Denies dyspnea Gastrointestinal Gastrointestinal: Reports abdominal pain; Denies constipation, diarrhea, nausea or vomiting Genitourinary Genitourinary ED: Reports dysuria, hematuria and urinary frequency Musculoskeletal Musculoskeletal: Reports back pain Integumentary Denies rash Neurologic Neurologic: Denies weakness EXAM Physical Exam Const Vital Signs: 03/17/24 13:12 Temperature 97.4 F L Temperature Source Temporal Pulse Rate 126 H Respiratory Rate 16 Blood Pressure 171/83 H Blood Pressure Mean 112 Pulse Ox 99 Oxygen Delivery Method Room Air Positive well nourished, well developed and no apparent distress General Appearance ED: well developed HEENT Reports normocephalic and head/scalp atraumatic Mouth ED: Yes moist mucous membranes normal Eyes PERRL and EOMs intact bilaterally Neck full ROM and supple Chest Wall inspection of chest normal Resp normal respiratory effort and clear to auscultation bilaterally Cardio regular rate and regular rhythm GI soft to palpation, non-distended and no masses GI Narrative: Left lower quadrant tenderness to palpation with no rigidity or guarding. Back/Spine normal ROM and normal to inspection General Back: Negative for CVA tenderness Thoracic Spine / Upper Back: Negative for thoracic spinal tenderness Lumbar Spine / Lower Back: Negative for lumbar spinal tenderness Extremity normal to inspection and full ROM Neuro oriented x3, CN's II-XII intact bilaterally, moves all extremities, no focal motor deficits and no sensory deficits noted Sensorium / Orientation: awake and alert Psych mental status grossly normal and thought process normal Skin no rashes or lesions noted and no wounds Physical Exam Const Vital Signs: 03/17/24 13:12 Temperature 97.4 F L Temperature Source Temporal Pulse Rate 126 H Respiratory Rate 16 Blood Pressure 171/83 H Blood Pressure Mean 112 Pulse Ox 99 Oxygen Delivery Method Room Air MDM MDM MDM Narrative Medical decision making narrative: Patient presenting today due to urinary frequency, urgency, and dysuria that started yesterday, hematuria started today. She did have an episode of urinary incontinence yesterday where she felt she had to go to the bathroom but could not make it there in time. Examination does sound consistent with a UTI. She has had intermittent left flank/left lower quadrant abdominal pain off and on for a while but has noticed it more frequently over the past 3 days. I offered analgesia and she declined. Labs obtained, she has a WBC of 17.6, this was also slightly elevated in previous labs. Her BMP is unremarkable. UA shows [address] leukocytes and occult blood. [address] scan of the abdomen and pelvis was obtained to assess for kidney stone, pyelonephritis, mass, and other etiology. This shows bladder wall thickening but otherwise is unremarkable. Given she does have symptoms of cystitis, we will start her on Macrobid with first dose here. Urinary culture (more content not included)... Normal [facility] Urinalysis, Completeon 03-17 RBC 0-5 SEEN Normal 0-5 [facility] Comment on above: Order Comment: CLEAN CATCH Performed By: #### L 400.0001 #### [facility] [address] [place], [address] WBC 0-5 SEEN Normal 0-5 [facility] Comment on above: Order Comment: CLEAN CATCH Performed By: #### L 400.0001 #### [facility] [address] [place], [address] BACTERIA 0 SEEN Normal None Seen [facility] Comment on above: Order Comment: CLEAN CATCH Performed By: #### L 400.0001 #### [facility] [address] [place], [address] EPI,SQUAMOUS 0 SEEN Normal 5-10 [facility] Comment on above: Order Comment: CLEAN CATCH Performed By: #### L 400.0001 #### [facility] [address] [place], [address] Mucus Ql (Urine sed) 0 SEEN Normal [facility] Comment on above: Order Comment: CLEAN CATCH Performed By: #### L 400.0001 #### [place] [facility] [address] [place], [address] COLONOSCOPY DIAGNOSTICon [facility] MRI LIVER WO/W IVCONon 11-03 [facility] NM BONE WHOLE BODYon 022 [facility] UA DIP, URINE (POC)on 2021 BILIRUBIN UA (POCT) Negative Negative [facility] CLARITY UA (POCT) Clear [facility] COLOR UA (POCT) Yellow [facility] GLUCOSE UA (POCT) Negative Negative mg/dL [facility] HEMOGLOBIN/BLOOD UA (POCT) Negative Negative [facility] KETONE UA (POCT) Negative Negative [facility] LEUKOCYTES UA (POCT) Small Abnormal Negative [facility] NITRITE UA (POCT) Negative Negative [facility] PH UA (POCT) 6.5 4.5 - 8.0 [facility] Protein Ql (U) Negative Negative mg/dL [facility] SPECIFIC GRAVITY UA (POCT) <=1.005 Abnormal 1.005 - 1.030 [facility] UROBILINOGEN UA (POCT) 0.2 E.U./dL Normal E.U./dL [facility] CBC W Auto Differential pane l (Bld)on 10-07-2021 Basophils (Bld) [#/Vol] 10*3/uL Normal <0.11 [facility] Comment on above: Order Comment: Speci men Type: BLOOD SPECIMEN Ordering Facility: [facility] Address: [address] [place] [address] Performed By: #### 5 7021-8 #### [facility] CLIA [id number] [address] [place] [address] OF [facility] Basophils/100 WBC (Bld) 0.2 % Normal [facility] Comment on above: Order Comment: Speci men Type: BLOOD SPECIMEN Ordering Facility: [facility] Address: [address] [place], [place] [address] Performed By: #### 5 7021-8 #### [facility] CLIA [id number] [address] [place] Differential cell count method Nom (Bld) Auto Normal [facility] Comment on above: Order Comment: Speci men Type: BLOOD SPECIMEN Ordering Facility: [facility] Address: [address] [place] [address] Performed By: #### 5 7021-8 #### [facility] CLIA [id number] [address] [place] [address] [place] Eosinophils (Bld) [#/Vol] 10*3/uL Normal <0.46 [facility] Comment on above: Order Comment: Speci men Type: BLOOD SPECIMEN Ordering Facility: [facility] Address: [address] [place] [address] Performed By: #### 5 7021-8 #### [facility] CLIA [id number] [address] [place] Eosinophils/100 WBC (Bld) 0.1 % Normal [facility] Comment on above: Order Comment: Speci men Type: BLOOD SPECIMEN Ordering Facility: [facility] Address: [address] [place] [address] Performed By: #### 5 7021-8 #### [facility] CLIA [id number] [address] [place] Erythrocyte distribution width (RBC) [Ratio] 13.7 % Normal 11.5-15.0 [facility] Comment on above: Order Comment: Speci men Type: BLOOD SPECIMEN Ordering Facility: [facility] Address: [address] [place] [address] Performed By: #### 5 7021-8 #### [facility] CLIA [id number] [address] [place] Hematocrit (Bld) [Volume fraction] 43.6 % Normal 36.0-46.0 [facility] Comment on above: Order Comment: Speci men Type: BLOOD SPECIMEN Ordering Facility: [facility] Address: [address] [place] [address] Performed By: #### 5 7021-8 #### [facility] CLIA [id number] [address] [place] [address] [place] Hemoglobin (Bld) [Mass/Vol] 14.2 g/dL Normal 11.5-15.5 [facility] Comment on above: Order Comment: Speci men Type: BLOOD SPECIMEN Ordering Facility: [facility] Address: [address] [place] [address] Performed By: #### 5 7021-8 #### [facility] CLIA [id number] [address] [place] [address] [place] Lymphocytes (Bld) [#/Vol] 1.41 10*3/uL Normal 1.00-4.00 [facility] Comment on above: Order Comment: Speci men Type: BLOOD SPECIMEN Ordering Facility: [facility] Address: [address] [place] [address] Performed By: #### 5 7021-8 #### [facility] CLIA [id number] [address] [place] [address] STATES [facility] Lymphocytes/100 WBC (Bld) 13.0 % Normal [facility] Comment on above: Order Comment: Speci men Type: BLOOD SPECIMEN Ordering Facility: [facility] Address: [address] [place] [address] Performed By: #### 5 7021-8 #### [facility] CLIA [id number] [address] [place] [address] [place] MCH (RBC) [Entitic mass] 27.8 pg Normal 26.0-34.0 [facility] Comment on above: Order Comment: Speci men Type: BLOOD SPECIMEN Ordering Facility: [facility] Address: [address] [place] [address] Performed By: #### 5 7021-8 #### [facility] CLIA [id number] [address] [place] MCHC (RBC) [Mass/Vol] 32.6 g/dL Normal 30.5-36.0 [facility] Comment on above: Order Comment: Speci men Type: BLOOD SPECIMEN Ordering Facility: [facility] Address: [address] [place] [address] Performed By: #### 5 7021-8 #### [facility] CLIA [id number] [address] [place] [address] [place] MCV (RBC) [Entitic vol] 85.5 fL Normal 80.0-100.0 [facility] Comment on above: Order Comment: Speci men Type: BLOOD SPECIMEN Ordering Facility: [facility] Address: [address] [place] [address] Performed By: #### 5 7021-8 #### [facility] CLIA [id number] [address] [place] [address] [place] Monocytes (Bld) [#/Vol] 0.67 10*3/uL Normal <0.87 [facility] Comment on above: Order Comment: Speci men Type: BLOOD SPECIMEN Ordering Facility: [facility] Address: [address] [place] [address] Performed By: #### 5 7021-8 #### [facility] CLIA [id number] [address] [place], [place] [address] [place] [address] [place] Monocytes/100 WBC (Bld) 6.2 % Normal [facility] Comment on above: Order Comment: Speci men Type: BLOOD SPECIMEN Ordering Facility: [facility] Address: [address] [place] [address] Performed By: #### 5 7021-8 #### [facility] CLIA [id number] [address] [place] [address] [place] Neutrophils (Bld) [#/Vol] 8.72 10*3/uL High 1.45-7.50 [facility] Comment on above: Order Comment: Speci men Type: BLOOD SPECIMEN Ordering Facility: [facility] Address: [address] [place] [address] Performed By: #### 5 7021-8 #### [facility] CLIA [id number] [address] [place] [address] [place] Neutrophils/100 WBC (Bld) 80.5 % Normal [facility] Comment on above: Order Comment: Speci men Type: BLOOD SPECIMEN Ordering Facility: [facility] Address: [address] [place] [address] Performed By: #### 5 7021-8 #### [facility] CLIA [id number] [address] [place] [address] [place] Platelet mean volume (Bld) [Entitic vol] 9.6 fL Normal 9.0-12.7 [facility] Comment on above: Order Comment: Speci men Type: BLOOD SPECIMEN Ordering Facility: [facility] Address: [address] [place] [address] Performed By: #### 5 7021-8 #### [facility] CLIA [id number] [address] [place] [address] [place] Platelets (Bld) [#/Vol] 293 10*3/uL Normal 150-400 [facility] Comment on above: Order Comment: Speci men Type: BLOOD SPECIMEN Ordering Facility: [facility] Address: [address] [place] [address] Performed By: #### 5 7021-8 #### [facility] CLIA [id number] [address] [place] [address] [place] RBC (Bld) [#/Vol] 5.10 10*6/uL Normal 3.90-5.20 [facility] Comment on above: Order Comment: Speci men Type: BLOOD SPECIMEN Ordering Facility: [facility] Address: [address] [place] [address] Performed By: #### 5 7021-8 #### [facility] CLIA [id number] [address] [place] [address] [place] WBC (Bld) [#/Vol] 10.83 10*3/uL Normal 3.70-11.00 [facility] Comment on above: Order Comment: Speci men Type: BLOOD SPECIMEN Ordering Facility: [facility] Address: [facility] [place] [address] Performed By: #### 5 7021-8 #### [facility] CLIA [id number] [address] [place] [id number] [place] [address] [place] [address] ABD/PEL WO IVCONon 2021 CT ABD/PEL WO IVCON * * *Final Report* * * DATE OF EXAM: Oct 07 2021 10:13AM LD 0531 - CT ABD/PEL WO IVCON / PROCEDURE REASON: Abdominal pain, acute, nonlocalized * * * * Physician Interpretation * * * * EXAMINATION: CT ABDOMEN AND PELVIS WITHOUT IV CONTRAST CLINICAL HISTORY: Abdominal pain and diarrhea TECHNIQUE: Non-IV contrast imaging of the abdomen and pelvis was performed using standard technique, scanning from just above the dome of the diaphragm to the symphysis pubis. Unenhanced imaging is limited for the evaluation of some intra-abdominal and pelvic pathology. MQ: CTAPWO_3 Contrast: IV: None : ml of CT Radiation dose: Integrated Dose-length product (DLP) for this visit = 756.97 mGy*cm. CT Dose Reduction Employed: Automated exposure control (AEC) COMPARISON: None. RESULT: Abdomen / Pelvis: Liver: There are numerous hypodense lesions of varying size within the liver. The largest measures up to 3.3 cm. This lesion demonstrates Hounsfield attenuation consistent with a cyst. A few of the other lesions demonstrate density slightly greater than a cyst. Several of the lesions are subcentimeter and are too small to accurately characterize. Biliary: Spleen: No splenomegaly. Pancreas: Unremarkable. Adrenals: No mass. Kidneys: No calculus, hydronephrosis or finding to suggest a cyst or mass in the unenhanced kidney. GI Tract: The stomach and small bowel are unremarkable. There is wall thickening and mild surrounding edema along a segment of the left colon. This measures up to approximately 10 cm in length. No diverticula are noted within this region. There are a few diverticula of the sigmoid colon. The proximal colon is unremarkable. Appendix appears normal. Lymph Nodes: No lymphadenopathy. Mesentery/peritoneum: No ascites. Retroperitoneum: No mass. Vasculature: No aortic aneurysm. Pelvis: No mass or ascites. Small fat-containing bilateral inguinal hernias. Bones/Soft Tissues: Moderate appearing osteoarthritis of the bilateral acetabular joints. Mild degenerative changes of the lumbar spine. No acute osseous abnormality is seen. Lower thorax: There are a few small bilateral nodules of the lung bases, measuring 3 mm or less. Lung bases otherwise demonstrate mild scarring/atelectasis. Administrative Assistant (topogram) images: IMPRESSION: 1. There is a segment of wall thickening and surrounding edema of the left colon as detailed above. This would represent a nonspecific colitis and most likely is of infectious or inflammatory etiology. No diverticula are seen specifically within this region. Minimal diverticulosis of the sigmoid. 2. Numerous hypodense lesions of the liver. These are most likely to represent cysts or hemangiomas. A few of these are too small to accurately characterize and one of the larger lesions demonstrates attenuation slightly above what is expected for a cyst. Further assessment with MRI should be considered. Clerk Analyst: LUZMA Transcribe Date/Time: Oct 07 2021 10:22A Dictated by : JAMES METCALF MD This examination was interpreted and the report reviewed and electronically signed by: JAMES METCALF MD on Oct 07 2021 10:31AM EST [id number] N Normal [facility] Comprehensive metabolic 2000 panelon 10-07-2021 Albumin [Mass/Vol] 4.6 g/dL Normal 3.9-4.9 [facility] Comment on above: Order Comment: Bruce beckham Type: BLOOD SPECIMEN Ordering Facility: [facility] Address: [address] [place] [address] Performed By: #### 2 4323-8 #### [facility] CLIA [id number] [address] [place] [address] [place] ALP [Catalytic activity/Vol] 226 U/L High 34-123 [facility] Comment on above: Order Comment: Bruce beckham Type: BLOOD SPECIMEN Ordering Facility: [facility] Address: [address] [place] [address] Performed By: #### 2 4323-8 #### [facility] CLIA [id number] [address] [place] [address] [place] ALT With P-5'-P [Catalytic activity/Vol] 16 U/L Normal 7-38 [facility] Comment on above: Order Comment: Speci men Type: BLOOD SPECIMEN Ordering Facility: [facility] Address: [address] [place] [address] Performed By: #### 2 4323-8 #### [facility] CLIA [id number] [address] [place] [address] [place] Anion gap [Moles/Vol] 12 mmol/L Normal 9-18 [facility] Comment on above: Order Comment: Speci men Type: BLOOD SPECIMEN Ordering Facility: [facility] Address: [address] [place] [address] Performed By: #### 2 4323-8 #### [facility] CLIA [id number] [address] [place], [place] [address] [place] [address] [place] AST With P-5'-P [Catalytic activity/Vol] 14 U/L Normal 13-35 [facility] Comment on above: Order Comment: Speci men Type: BLOOD SPECIMEN Ordering Facility: [facility] Address: [address] [place] [address] Performed By: #### 2 4323-8 #### [facility] CLIA [id number] [address] [place], [place] [id number] [place] [address] [place] Bilirubin [Mass/Vol] 0.5 mg/dL Normal 0.2-1.3 [facility] Comment on above: Order Comment: Speci men Type: BLOOD SPECIMEN Ordering Facility: [facility] Address: [address] [place] [address] Performed By: #### 2 4323-8 #### [facility] CLIA [id number] [address] [place], [place] [id number] [place] [address] [place] Calcium [Mass/Vol] 9.4 mg/dL Normal 8.5-10.2 [facility] Comment on above: Order Comment: Speci men Type: BLOOD SPECIMEN Ordering Facility: [facility] Address: [address] [address] Performed By: #### 2 4323-8 #### [facility] CLIA [id number] [address] [place] [address] [place] Chloride [Moles/Vol] 104 mmol/L Normal 97-105 [facility] Comment on above: Order Comment: Speci men Type: BLOOD SPECIMEN Ordering Facility: [facility] Address: [address] [place] [address] Performed By: #### 2 4323-8 #### [facility] CLIA [id number] [address] [place] [address] [place] CO2 [Moles/Vol] 24 mmol/L Normal 22-30 [facility] Comment on above: Order Comment: Speci men Type: BLOOD SPECIMEN Ordering Facility: [facility] Address: [address] [place] [address] Performed By: #### 2 4323-8 #### [facility] CLIA [id number] [address] [place] [address] [place] Creatinine [Mass/Vol] 0.77 mg/dL Normal 0.58-0.96 [facility] Comment on above: Order Comment: Speci men Type: BLOOD SPECIMEN Ordering Facility: [facility] Address: [address] [place] [address] Performed By: #### 2 4323-8 #### [facility] CLIA [id number] [address] [place] [id number] [facility] ESTIMATED GLOMERULAR FILTRATION RATE 86 mL/min/1.73m??? Normal >=60 [facility] Comment on above: Order Comment: Speci men Type: BLOOD SPECIMEN Ordering Facility: [facility] Address: [address] [place] [address] Result Comment: Cindy mated Glomerular Filtration Rate (eGFR) is calculated using the 2020 CKD-EPI creatinine equation. This equation utilizes serum creatinine, sex, and age as parameters. The creatinine assay has traceable calibration to isotope dilution-mass spectrometry. Refer to KDIGO guidelines for clinical interpretation. In patients with unstable renal function, e.g. those with acute kidney injury, the eGFR may not accurately reflect actual GFR. Performed By: #### 2 4323-8 #### [facility] CLIA [id number] [address] [place] [address] [place] Glucose [Mass/Vol] 119 mg/dL High 74-99 [facility] Comment on above: Order Comment: Bruce beckham Type: BLOOD SPECIMEN Ordering Facility: [facility] Address: [address] [place], [place] [address] Result Comment: The [place] Diabetes [employer] (ADA) provides guidance for cutoff values for fasting glucose and random glucose. The ADA defines fasting as no caloric intake for at least 8 hours. Fasting plasma glucose results between 100 to 125 mg/dL indicate increased risk for diabetes (prediabetes). Fasting plasma glucose results greater than or equal to 126 mg/dL meet the criteria for diagnosis of diabetes. In the absence of unequivocal hyperglycemia, results should be confirmed by repeat testing. In a patient with classic symptoms of hyperglycemia or hyperglycemic crisis, random plasma glucose results greater than or equal to 200 mg/dL meet the criteria for diagnosis of diabetes. Reference: Standards of Medical Care in Diabetes 2016, [place] [employer]. Diabetes Care. 2016.39(Suppl 1). Performed By: #### 2 4323-8 #### [facility] CLIA [id number] [address] [place] [address] [place] Potassium [Moles/Vol] 4.0 mmol/L Normal 3.7-5.1 [facility] Comment on above: Order Comment: Bruce beckham Type: BLOOD SPECIMEN Ordering Facility: [facility] Address: [address] [place] [address] Performed By: #### 2 4323-8 #### [facility] CLIA [id number] [address] [place] [address] [place] Protein [Mass/Vol] 7.2 g/dL Normal 6.3-8.0 [facility] Comment on above: Order Comment: Bruce beckham Type: BLOOD SPECIMEN Ordering Facility: [facility] Address: [address] [place], [place] [phone] Performed By: #### 2 4323-8 #### [facility] CLIA [id number] [address] [place] [address] [facility] Sodium [Moles/Vol] 140 mmol/L Normal 136-144 [facility] Comment on above: Order Comment: Speci men Type: BLOOD SPECIMEN Ordering Facility: [facility] Address: [address] [place] [address] Performed By: #### 2 4323-8 #### [facility] CLIA [id number] [address] [place] [address] [place] Urea nitrogen [Mass/Vol] 12 mg/dL Normal 7-21 [facility] Comment on above: Order Comment: Speci men Type: BLOOD SPECIMEN Ordering Facility: [facility] Address: [address] [place] [address] Performed By: #### 2 4323-8 #### [facility] CLIA [id number] [address] [place] [place] [id number] [facility] ED NOTEon 10-07-2021 ED NOTE HNO ID: [id number] Author: Yanique Steiner RN Service: Emergency Medicine Author Type: Registered Nurse Type: ED Notes Filed: 10/08/2021 8:23 AM Note Text: Patient Call Back Information How are you doing ? better Did we appropriately manage your pain? Yes Did you understand your discharge instructions? Yes Did you get your prescriptions filled? Yes Were you able to make a follow-up appointment with your physician? No Were you comfortable during your stay here? Yes Did a member of the ER nursing team round on you during your visit? Yes You will receive a patient satisfaction survey in the mail in the nest 2 weeks, please take the time to fill out the survey as your input from your ER visit is very important to us. Yes Can we do anything else to help you? No Normal [facility] ED NOTE HNO ID: [id number] Author: Yanique Steiner RN Service: Emergency Medicine Author Type: Registered Nurse Type: ED Notes Filed: 10/07/2021 11:29 AM Note Text: Pt given discharge instructions, pt questions answered and pt denies any further questions at time of discharge. Pt ambulates out of dept with a cane 2 rx sent to [facility] in [place] Normal [facility] ED NOTE HNO ID: [id number] Author: Yanique Steiner RN Service: Emergency Medicine Author Type: Registered Nurse Type: ED Notes Filed: 10/07/2021 9:21 AM Note Text: Dr gupta at bedside for exam Normal [facility] ED NOTE HNO ID: [id number] Author: Yanique Steiner RN Service: Emergency Medicine Author Type: Registered Nurse Type: ED Notes Filed: 10/07/2021 8:59 AM Note Text: Since last night pt began to have stomach cramping and diarrhea. Pt states she was having quite a bit of rectal bleeding yesterday, still some bleeding today. Normal [facility] ED PROV NOTEon 10-07-2021 ED PROV NOTE HNO ID: [id number] Author: Davon Gupta MD Service: Emergency Medicine Author Type: Physician Type: ED Provider Notes Filed: 10/07/2021 11:02 AM Note Text: ED Provider Note Patient Name: Vero Portlilo : 1955 SERVICE DATE: 10/07/21 History Patient presents with: Diarrhea Abdominal Pain 66-year-old female patient states she developed lower abdominal pain around 10 PM last evening. Pain went around to her back. She then states she had 3 episodes of loose stool and then 4-5 episodes of bright red blood per rectum. She states the bright red blood was not mixed with any stool. She not had any vomiting. No fever. States she does feel improved this morning. States she had 1 episode of rectal bleeding in the past and it was caused by diverticuli. She had a colonoscopy at that time but has not had one since and that is been many years. Patient states her heart rate is always fast and her blood pressure is elevated when she seeks medical treatment. She denies a fever. 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 - Cough - Mitral valve disorders(424.0) - Postmenopausal atrophic vaginitis 09/05/2006 - Tobacco use disorder 03/23/2010 PAST SURGICAL HISTORY Procedure Laterality Date - DELIVERY ONLY x2 - COLONOSCOPY FLX DX W/COLLJ SPEC WHEN PFRMD 11/24/2014 Colonoscopy - PAST SURGICAL HISTORY OF 1970s sinus surgery - PAST SURGICAL HISTORY OF oral surgery - TONSILLECTOMY AND ADENOIDECTOMY AGE 14/> FAMILY HISTORY Problem Relation Age of Onset - Cancer Sister Bladder - Cancer Sister Melanoma skin - Hypertension Father alive age 80 - Stroke Paternal Grandfather [place] - Stroke Mother alive age 79 - Diabetes Mother - Coronary Artery Disease Mother - Cervical Cancer Mother Social History Tobacco Use - Smoking status: Former Packs/day: 1.00 Years: 20.00 Pack years: 20.00 Types: Cigarettes - Smokeless tobacco: Never Vaping Use - Vaping Use: Not on file Substance and Sexual Activity - Alcohol use: No - Drug use: No - Sexual activity: Yes Partners: Male ALLERGIES Allergen Reactions - Cephalexin Review of Systems Constitutional: Negative for fever. Gastrointestinal: Positive for abdominal pain and blood in stool. All other systems reviewed and are negative. Physical Exam Vitals [10/07/21 0855] BP Pulse Temp Temp src Resp SpO2 Weight Height 178/106 (!) 117 36.5 ?C (97.7 ?F) Temporal Art 20 98 % 90.7 kg (200 lb) 1.499 m (4' 11) Physical Exam Vitals and nursing note reviewed. Exam conducted with a belt cutter present. Constitutional: Appearance: She is well-developed. HENT: Head: Normocephalic and atraumatic. Nose: Nose normal. Eyes: Extraocular Movements: Extraocular movements intact. Cardiovascular: Heart sounds: Normal heart sounds. Pulmonary: Effort: No respiratory distress. Breath sounds: Normal breath sounds. Abdominal: General: Bowel sounds are normal. Palpations: Abdomen is soft. Tenderness: There is no abdominal tenderness. Genitourinary: Comments: No hemorrhoid Musculoskeletal: General: Normal range of motion. Cervical back: Neck supple. Skin: General: Skin is warm and dry. Neurological: Mental Status: She is alert and oriented to person, place, and time. Diagnostic Testing ED Labs Ordered and Reviewed - No data to display Procedures ED Course / Clinical Impression Clinical Impressions as of 10/07/21 1059 Colitis Hypertension, unspecified type Abnormal finding on radiology exam MDM / Disposition / Plan Patient has had no bleeding now for several hours. She did have fecal occult positive but it was not clearly grossly bloody.Her heart rate was initially elevated however she becomes hypertensive and tachycardic when she visits doctors. On reevaluation this was much improved. Her hemoglobin is normal. Her CT showed segment of wall thickening and edema of the left colon. Also numerous hypodensity lesions in the liver which I spoke to the patient about. I do think she stable for discharge as she has had no further bleeding here. I did advise her if she develops significant bleeding to return to the emergency department for admission for possible colonoscopy. Otherwise I will start her on antibiotics for the colitis. I also recommend she follow-up with her primary doctor for the abnormal liver imaging and also retest of her blood pressure. She will return to the emergency department if symptoms worsen. Disposition The patient was discharged. Counseled patient regarding suspected diagnosis, lab results and radiology results. As well as the need for follow-up. Discharged home with verbal and written instructions. They were instructed to return as needed for persistent or worsening symptoms or any new concerns. Condition at disposition is stable. SIGNATURE: MD Davon Graf MD (more content not included)... Normal [facility] Hemoccult Stl Ql IAon 2021 Lower GI hemoglobin IA Ql (Stl) Positive Abnormal Negative [facility] Comment on above: Order Comment: Speci men Type: STOOL SPECIMEN Ordering Facility: [facility] Address: [address] [id number] Performed By: #### 2 9771-3 #### [facility] CLIA [id number] [address] [place] [address] [place] Urinalysis complete panel (U )on 10-07-2021 Bilirubin Ql (U) Negative Normal Negative [facility] Comment on above: Order Comment: Speci men Type: URINE SPECIMEN Ordering Facility: [facility] Address: [address] [id number] Performed By: #### 2 4356-8 #### [facility] CLIA [id number] [address] [place] [address] [place] Clarity (Unsp spec) Clear Normal Clear [facility] Comment on above: Order Comment: Speci men Type: URINE SPECIMEN Ordering Facility: [facility] Address: [address] [place] [address] Performed By: #### 2 4356-8 #### [facility] CLIA [id number] [address] [place] [address] [place] Color (U) Yellow Normal Yellow [facility] Comment on above: Order Comment: Speci men Type: URINE SPECIMEN Ordering Facility: [facility] Address: [address] [place] [address] Performed By: #### 2 4356-8 #### [facility] CLIA [id number] [address] [place] [address] [facility] [place] Glucose Test strip (U) [Mass/Vol] Negative Normal Negative [facility] Comment on above: Order Comment: Speci men Type: URINE SPECIMEN Ordering Facility: [facility] Address: [address] [place] [address] Performed By: #### 2 4356-8 #### [facility] CLIA [id number] [address] [place] [address] [place] Hemoglobin Ql (U) Trace Abnormal Negative [facility] Comment on above: Order Comment: Speci men Type: URINE SPECIMEN Ordering Facility: [facility] Address: [address] [place] [address] Performed By: #### 2 4356-8 #### [facility] CLIA [id number] [address] [place] [address] [place] Ketones Ql (U) Negative Normal Negative [facility] Comment on above: Order Comment: Speci men Type: URINE SPECIMEN Ordering Facility: [facility] Address: [address] [place] [address] Performed By: #### 2 4356-8 #### [facility] CLIA [id number] [address] [place] [address] [place] Leukocyte esterase Test strip Ql (U) Negative Normal Negative [facility] Comment on above: Order Comment: Speci men Type: URINE SPECIMEN Ordering Facility: [facility] Address: [address] [place] [address] Performed By: #### 2 4356-8 #### [facility] CLIA [id number] [address] [place] [address] [place] Nitrite Ql (U) Negative Normal Negative [facility] Comment on above: Order Comment: Speci men Type: URINE SPECIMEN Ordering Facility: [facility] Address: [address] [place] [address] Performed By: #### 2 4356-8 #### [facility] CLIA [id number] [address] [place] [address] [place] pH (U) 6.5 [pH] Normal 5.0-8.0 [facility] Comment on above: Order Comment: Speci men Type: URINE SPECIMEN Ordering Facility: [facility] Address: [address] [place] [address] Performed By: #### 2 4356-8 #### [facility] CLIA [id number] [address] [id number] [place] Protein (U) [Mass/Vol] Negative Normal Negative [facility] Comment on above: Order Comment: Speci men Type: URINE SPECIMEN Ordering Facility: [facility] Address: [address] [place] [address] Performed By: #### 2 4356-8 #### [facility] CLIA [id number] [address] [id number] [place] RBC LM.HPF (Urine sed) [#/Area] 0-3 /HPF Normal 0-3 /HPF [facility] Comment on above: Order Comment: Speci men Type: URINE SPECIMEN Ordering Facility: [facility] Address: [address] [place] [address] Performed By: #### 2 4356-8 #### [facility] CLIA [id number] [address] [place] [address] [place] Specific gravity (U) [Rel density] 1.010 Normal 1.005-1.030 [facility] Comment on above: Order Comment: Speci men Type: URINE SPECIMEN Ordering Facility: [facility] Address: [address] [place] [address] Performed By: #### 2 4356-8 #### [facility] CLIA [id number] [address] Urobilinogen Ql (U) 0.2 EU/dL Normal 0.2-1.0 EU/dL [facility] Comment on above: Order Comment: Speci men Type: URINE SPECIMEN Ordering Facility: [facility] Address: [address] [place] [address] Performed By: #### 2 4356-8 #### [facility] CLIA [id number] [address] [place] WBC LM.HPF (Urine sed) [#/Area] 0-5 /HPF Normal 0-5 /HPF [facility] Comment on above: Order Comment: Speci men Type: URINE SPECIMEN Ordering Facility: [facility] Address: [address] [place] [address] Performed By: #### 2 4356-8 #### [facility] CLIA [id number] [address] [place] [address] Vital Signs Date Time Vital Sign Value Performing Clinician Faci nani 12-03-2021 11:19-0400 Heart rate 70 /min Rosalia Perez MD Work Phone: [facility] 12-03-2021 11:19-0400 Respiratory rate 16 /min Rosalia Perez MD Work Phone: [facility] 12-03-2021 11:19-0400 SaO2% (BldA) [Mass fraction] 98 % Rosalia Perez MD Work Phone: [facility] 12-03-2021 11:09-0400 Diastolic blood pressure 60 mm[Hg] Rosalia Perez MD Work Phone: [facility] 12-03-2021 11:09-0400 Systolic blood pressure 124 mm[Hg] Rosalia Perez MD Work Phone: [facility] 12-03-2021 09:51-0400 Body temperature 98.2 [degF] Rosalia Perez MD Work Phone: [facility] 11-29-2021 13:01-0400 Body weight 84.82 kg Preston Lr MD Work Phone: [facility] 11-29-2021 13:01-0400 Diastolic blood pressure 82 mm[Hg] Preston Lr MD Work Phone: [facility] 11-29-2021 13:01-0400 Heart rate 72 /min Preston Lr MD Work Phone: [facility] 11-29-2021 13:01-0400 Systolic blood pressure 172 mm[Hg] Preston Lr MD Work Phone: [facility] 11-09-2021 13:40-0400 Body height 149.9 cm Holly Oswaldo PA-C Work Phone: [facility] 11-09-2021 13:40-0400 Body temperature 97.3 [degF] Holly Oswaldo PA-C Work Phone: [facility] 11-09-2021 13:40-0400 Body weight 85.91 kg Holly Oswaldo PA-C Work Phone: [facility] 11-09-2021 13:40-0400 Diastolic blood pressure 88 mm[Hg] Holly [place] PA-C Work Phone: [facility] 11-09-2021 13:40-0400 Heart rate 118 /min Holly Oswaldo PA-C Work Phone: [facility] 11-09-2021 13:40-0400 SaO2% (BldA) [Mass fraction] 96 % Holly Oswaldo PA-C Work Phone: [facility] 11-09-2021 13:40-0400 Systolic blood pressure 166 mm[Hg] Holly Oswaldo PA-C Work Phone: [facility] 08-17-2022 10:20-0400 Diastolic blood pressure 100 mm[Hg] Alysha Haagen NECKTIE TURNER.SURGERY SPECIALIST Work Phone: [facility] 10-13-2021 10:20-0400 Heart rate 102 /min Alysha Haagen NECKTIE TURNER.SURGERY SPECIALIST Work Phone: [facility] 10-13-2021 10:20-0400 Respiratory rate 18 /min Alysha Haagen NECKTIE TURNER.SURGERY SPECIALIST Work Phone: [facility] 10-13-2021 10:20-0400 SaO2% (BldA) [Mass fraction] 95 % Alysha Haagen NECKTIE TURNER.SURGERY SPECIALIST Work Phone: [facility] 10-13-2021 10:20-0400 Systolic blood pressure 142 mm[Hg] Alysha Haagen NECKTIE TURNER.SURGERY SPECIALIST Work Phone: [facility] Encounters Encounter Date Encounter Type Care Provider Facility Start: 03-17-2024 End: 03-17-2024 Emergency department patient visit Preston Lr Facility:[facility] Start: 01-08-2024 End: 01-08-2024 ambulatory Pura Stewart MA [facility] Start: 01-08-2024 End: 01-08-2024 Patient encounter procedure [facility] [place] Comment on above: Population Health Na vigation Outreach ([facility] ) Start: 10-25-2023 End: 10-25-2023 ambulatory Pura Stewart MA [facility] Start: 10-25-2023 End: 10-25-2023 Patient encounter procedure Pura Stewart MA [facility] [place] Comment on above: Population Health Na vigation Outreach ([facility] ) Start: 09-20-2023 ambulatory P[facility] Stewart [facility] [place] Start: 09-20-2023 Patient encounter procedure Pura Stewart MA [facility] Comment on above: Population Health Na vigation Outreach ([facility] ) Start: 09-06-2023 ambulatory Preston Lr MD Work Phone: Internal Medicine [address] [id number] Start: 08-17-2023 ambulatory Pura Stewart MA [facility] [place] Start: 08-17-2023 Patient encounter [facility] [place] Comment on above: Population Health Na vigation Outreach ([employer] ) Start: 07-20-2023 ambulatory Pura Stewart MA [facility] [place] Start: 07-20-2023 Patient encounter procedure [facility] Comment on above: Population Health Na vigation Outreach ([employer] ) Start: 05-13-2023 ambulatory [facility] Comment on above: Population Health Na vigation Outreach ([employer] [facility] Start: 12-03-2021 End: 12-03-2021 Subsequent hospital visit by physician Rosalia Perez MD Work Phone: Ambulatory Surgery Comment on above: Colitis [K52.9] Start: 11-29-2021 End: 11-29-2021 Patient encounter procedure Preston Lr MD Work Phone: [facility] Comment on above: Elevated BP without diagnosis of hypertension (Primary Dx); Mitral valve prolapse; Congenital varus deformity of knee; Colitis Start: 11-09-2021 End: 11-09-2021 Patient encounter procedure Holly Chacon PA-C Work Phone: General Surgery Comment on above: Colitis (Primary Dx) ; Screening for colon cancer; Blood in stool Start: 11-04-2021 Telephone encounter Alysha fermin APRN.CNP Work Phone: Family [facility] Comment on above: Results Start: 11-03-2021 End: 11-03-2021 Subsequent hospital visit by physician Mri Radio [facility] (I-Stat/1.5t) Work Phone: Radiology Comment on above: Liver lesion [K76.9] Start: 10-29-2021 Telephone encounter Alysha fermin APRN.CNP Work Phone: [facility] Comment on above: Results Start: 10-29-2021 End: 10-29-2021 Subsequent hospital visit by physician [facility] Work Phone: Nuclear Medicine Comment on above: Elevated alkaline ph osphatase level [R74.8] Start: 10-29-2021 End: 10-29-2021 Subsequent hospital visit by physician Injection [facility] Work Phone: Nuclear Medicine Start: 10-20-2021 ambulatory Preston Lr MD Work Phone: Internal Medicine [facility] [place] Start: 10-13-2021 End: 10-13-2021 Office outpatient new 45 minutes Alysha Gonzáles APRN.SURGERY SPECIALIST Work Phone: [facility] [place] Comment on above: Colitis (Primary Dx) ; Urinary frequency; Screening for colon cancer; Liver lesion; Special screening examination for viral disease; Screening for HIV (human immunodeficiency virus); Elevated alkaline phosphatase level; Weight gain; Elevated glucose; Aorta disorder (HCC); Screening for hyperlipidemia; Mitral valve prolapse Start: 10-07-2021 Telephone encounter Preston Lr MD Work Phone: [facility] [place] Comment on above: Patient Question Procedures Date Procedure Procedure Detail Performing Clinician Start: 12-03-2021 Colonoscopy flx dx w /collj spec when pfrmd Holly Chacon PA-C Work Phone: Start: 12-03-2021 Colonoscopy Rosalia Perez MD Work Phone: Start: 11-03-2021 Mri abdomen w/o & w/contrast material Alysha Gonzáles APRN.SURGERY SPECIALIST Work Phone: Start: 10-29-2021 Bone &/joint imaging whole body Alysha Gonzáles APRN.SURGERY SPECIALIST Work Phone: Start: 10-13-2021 Urnls dip stick/tabl et rgnt auto w/o microscopy Alysha Gonzáles APRN.SURGERY SPECIALIST Work Phone: Start: 10-13-2021 Lipid 1996 panel - S robert or Plasma [facility] Start: 03-11-2016 Adult depression scr eening assessment Preston Lr MD Work Phone: Start: 03-11-2016 Mammography Preston cMhugh MD Work Phone: Start: 11-24-2014 Colonoscopy Preston Mchugh MD Work Phone: Plan of Treatment Date Care Activity Detail Author Start: 2032 RSV Vaccine (1 - 1-d ose 75+ series) RSV Vaccine (1 - 1-dose 75+ series) [facility] Start: 12-04-2031 Screening for malign ant neoplasm of colon [facility] Start: 12-03-2026 Colonoscopy COLONOSCOPY [facility] Start: 12-03-2026 COLORECTAL CANCER SCREENING COLORECTAL CANCER SCREENING [facility] Start: 10-13-2026 Lipid panel Lipid Screening [facility] Start: 10-13-2026 LIPID SCREEN LIPID SCREEN [facility] Start: 10-13-2024 DIABETES SCREEN DIABETES SCREEN [facility] Start: 10-13-2024 Diabetes Screening Diabetes Screenin g [facility] Start: 10-07-2024 DIABETES SCREEN DIABETES SCREEN [facility] Start: 10-29-2023 Covid-19 Vaccine () Covid-19 Vaccine () [facility] Start: 10-29-2023 Influenza vaccination [facility] Start: 02-27-2023 Advance Directive Discussion Advance Directive Discussion [facility] Start: 02-27-2023 Behavioral Health Screening Behavioral Health Screening [facility] Start: 02-27-2023 Depression Assessment Depression Ass essment [facility] Start: 11-29-2022 COVID-19 VACCINE (#1) COVID-19 VACCI NE (#1) [facility] Comment on above: Postponed from 11/29 (Declined at this time) Start: 10-28-2022 Covid-19 Vaccine ( season) Covid-19 Vaccine () [facility] Start: 10-28-2022 Influenza vaccination Influenza Vacc ine (#1) [facility] Start: 10-07-2022 FECAL OCCULT BLOOD FECAL OCCULT BLOO D [facility] Start: 10-07-2022 Screening for malign ant neoplasm of colon Fecal Occult Blood [facility] Start: 08-26-2022 Influenza vaccination INFLUENZA (#1) [facility] Comment on above: Postponed from 10/28 (Declined at this time) Start: 2022 Pneumococcal Vaccine : 65+ (1 of 1 - PCV) Pneumococcal Vaccine: 65+ (1 of 1 - PCV) [facility] Start: 2022 Screening for osteoporosis Bone Dens ity Screening [facility] Start: 10-28-2021 Influenza vaccination INFLUENZA (#1) [facility] Start: 10-13-2021 End: 12-13-2021 ALK PHOS ISOENZYM BL [facility] Work Phone: Comment on above: Expected: 10/13/2021 , Expires: 12/13/2021 Start: 10-13-2021 End: 12-13-2021 Hemoglobin A1c in Blood [facility] Work Phone: Comment on above: Expected: 10/13/2021 , Expires: 12/13/2021 Start: 10-13-2021 End: 12-13-2021 Hepatitis C virus Ab [Presence] in Serum [facility] Work Phone: Comment on above: Expected: 10/13/2021 , Expires: 12/13/2021 Start: 10-13-2021 End: 12-13-2021 HIV 1+2 Ab [Presence] in Serum or Plasma by Immunoassay [facility] Work Phone: Comment on above: Expected: 10/13/2021 , Expires: 12/13/2021 Start: 10-13-2021 End: 12-13-2021 LIPID PANEL, NONFASTING [facility] Work Phone: Comment on above: Expected: 10/13/2021 , Expires: 12/13/2021 Start: 10-13-2021 End: 12-13-2021 Thyrotropin [Units/volume] in Serum or Plasma [facility] Work Phone: Comment on above: Expected: 10/13/2021 , Expires: 12/13/2021 Start: 10-13-2021 End: 12-13-2021 Thyroxine (T4) free [Mass/volume] in Serum or Plasma [facility] Work Phone: Comment on above: Expected: 10/13/2021 , Expires: 12/13/2021 Start: 10-08-2021 COLORECTAL CANCER SCREENING COLORECTAL CANCER SCREENING [facility] Start: 11-25-2019 Colonoscopy COLONOSCOPY [facility] Start: 10-10-2019 LIPID SCREEN LIPID SCREEN [facility] Start: 2017 RSV Vaccine (1 - 1-d ose 60+ series) RSV Vaccine (1 - 1-dose 60+ series) [facility] Start: 03-11-2017 Adult depression scr eening assessment DEPRESSION SCREENING [facility] Start: 03-11-2017 Mammography MAMMOGRAM [facility] Start: 03-11-2017 Screening for malign ant neoplasm of breast Mammogram Screening [facility] Start: 03-23-2015 PAP TESTING PAP TESTING [facility] Start: 09-06-2011 HPV TESTING HPV TESTING [facility] Start: 05-31-2007 SHINGRIX VACCINE (1 of 2) HUERTA GRIX VACCINE (1 of 2) [facility] Start: 2002 COLOGUARD (FIT-DNA) COLOGUARD (FIT-D NA) [facility] Start: [address] COLONOGRAPHY [facility] Start: 2002 Screening for malign ant neoplasm of colon [facility] Start: 2002 SIGMOIDOSCOPY SIGMOIDOSCOPY [facility] Start: 1976 Urine microalbumin profile [facility] Start: 05-31-1975 Anxiety Screening Anxiety Screening [facility] Start: 05-31-1975 Depression Screening Depression Scre ening [facility] Start: 05-31-1975 HEPATITIS C SCREENING HEPATITIS C SC REENING [facility] Start: 05-31-1975 HIV SCREENING HIV SCREENING [facility] Start: 1955 COVID-19 VACCINE (#1) COVID-19 VACCI NE (#1) [facility] Bacteria identified in Urine by Culture URINE CULTURE Microbiology Routine Urinary frequency 10/13/2021 11:11 AM EDT [facility] Work Phone: End: 10-05-2024 DBT Breast - bilateral screening BONNIE SCREENING [facility] Radiology Routine Encounter for screening mammogram for breast cancer 1 Occurrences starting 09/06/2023 until 10/05/2024 [facility] Work Phone: Comment on above: 1 Occurrences starti ng 09/06/2023 until 10/05/2024 End: 10-13-2022 Echocardiography ECHO Cardiology Routine Aorta disorder (HCC) Mitral valve prolapse 1 Occurrences starting 10/13/2021 until 10/13/2022 [facility] Work Phone: Comment on above: 1 Occurrences starti ng 10/13/2021 until 10/13/2022 End: 11-12-2022 Mri abdomen w/o & w/contrast material MRI LIVER WO/W IVCON Radiology Routine Liver lesion 1 Occurrences starting 10/13/2021 until 11/12/2022 [facility] Work Phone: Comment on above: 1 Occurrences starti ng 10/13/2021 until 11/12/2022 End: 11-19-2022 Screening mammography bi 2-view breast inc cad BONNIE SCREENING Radiology Routine Encounter for screening mammogram for breast cancer 1 Occurrences starting 10/20/2021 until 11/19/2022 [facility] Work Phone: Comment on above: 1 Occurrences starti ng 10/20/2021 until 11/19/2022 [facility] Immunizations Immunization Date Immunization Notes Care Provider Misael quintero 03-11-2016 influenza virus vacc ine, unspecified formulation [facility] Payers Date Payer Category Payer Medicare [id number] 2024 Self-pay Unknown [id number] Social History Date Type Detail Facility Start: 10-07-2021 Tobacco smoking status NHIS Ex-smoke r [facility] History of tobacco use Current smoker [facility] History of tobacco use Cigarette Smoker [facility] Start: 10-07-2021 End: 03-25-2022 Cigarettes smoked current (pack per day) - Reported 1 [facility] Start: 10-07-2021 Tobacco use and exposure Smoke less tobacco non-user [facility] Start: 10-07-2021 End: 12-30-2021 Alcohol intake Current non-drinker of alcohol (finding) [facility] Start: 1955 Sex Assigned At Not on file [facility] Start: 10-13-2021 End: 11-29-2021 History SDOH Alcohol Frequency 1 [facility] Start: 10-13-2021 History SDOH Alcohol Std Drinks 0 [facility] Start: 10-13-2021 History SDOH Social Connections Phone 5 [facility] Start: 10-13-2021 History SDOH Social Connections Get Together 98 [facility] Start: 10-13-2021 End: 11-29-2021 History SDOH Social Connections Membership 2 [facility] Start: 10-13-2021 History SDOH Social Connections Living 4 [facility] Start: 09-27-2021 End: 12-03-2021 Exposure to SARS-CoV-2 (event) Not sure [facility] Start: 10-13-2021 End: 03-25-2022 Social connection and isolation panel [facility] How often do you get together with friends or relatives? Patient declined [facility] Do you belong to any clubs or organizations such as latter-day groups, unions, fraternal or athletic groups, or school groups? No [facility] Are you now , , , , never or living with a partner? [facility] How often to you hav e a drink containing alcohol? Never [facility] (I/We) worried wheth er (my/our) food would run out before (I/we) got money to buy more. Never true [facility] Clinical Notes 08-11-2014 to 01-08-2024 Pura Stewart MA - 01/08/2024 1:10 PM Pura Moody MA - 10/25/2023 7:38 AM Pura Ortega MA - 09/20/2023 9:25 AM Pura Ortega MA - 08/17/2023 11:40 AM EDT Note Date & Type Note Facility 01-08-2024 Note HNO ID: [id number] Author: PURA STEWART MA Service: ? Author Type: Network Security Administrator Type: Progress Notes Filed: 01/08/2024 13:27 Note Text: POPULATION HEALTH NAVIGATION OUTREACH Action/Robert Sapp [place] Discuss/Due for: Medicare Wellness, Mammogram, Influenza Vaccination HCC Score: .[id number] Outcome: 1st attempt - Spoke to patient Patient declined Medicare Wellness, Mammogram, Influenza Vaccination Reason for Outreach Care Gap/HCC or Scheduling Wellness Visits Care Gaps due: Medicare Annual Wellness Visit Breast Cancer Screening Flu Vaccine Patient Contacted: Spoke to patient/parent/or legal guardian Patient identified by name and : Yes Care Gap/HCC/Scheduling Wellness actions taken: Patient declined: Patient requested call back from navigator/ will call navigator back HCC related Navigation Signature: Pura Stewart MA January 08, 2024 1:12 PM [facility] 01-08-2024 History of Presen t illness Narrative POPULATION HEALTH NAVIGATION OUTREACH Action/Robert Sapp [place] Discuss/Due for: Medicare Wellness, Mammogram, Influenza Vaccination HCC Score: .[id number] Outcome: 1st attempt - Spoke to patient Patient declined Medicare Wellness, Mammogram, Influenza Vaccination Reason for Outreach Care Gap/HCC or Scheduling Wellness Visits Care Gaps due: Medicare Annual Wellness Visit Breast Cancer Screening Flu Vaccine Patient Contacted: Spoke to patient/parent/or legal guardian Patient identified by name and : Yes Care Gap/HCC/Scheduling Wellness actions taken: Patient declined: Patient requested call back from navigator/ will call navigator back HCC related Navigation Signature: Pura Stewart MA January 08, 2024 1:12 PM documented in this encounter [facility] 01-08-2024 Note Patient Outreach (NE TNAV) VERO PORTILLO ([id number]) 1955 F Date Time Provider Department 01/08/24 PURA STEWART During your visit today, we recorded the following information about you: Pura Stewart MA 01/08/2024 1:27 PM Signed POPULATION HEALTH NAVIGATION OUTREACH Action/Robert Sapp [place] Discuss/Due for: Medicare Wellness, Mammogram, Influenza Vaccination HCC Score: .[id number] Outcome: 1st attempt - Spoke to patient Patient declined Medicare Wellness, Mammogram, Influenza Vaccination Reason for Outreach Care Gap/HCC or Scheduling Wellness Visits Care Gaps due: Medicare Annual Wellness Visit Breast Cancer Screening Flu Vaccine Patient Contacted: Spoke to patient/parent/or legal guardian Patient identified by name and : Yes Care Gap/HCC/Scheduling Wellness actions taken: Patient declined: Patient requested call back from navigator/ will call navigator back HCC related Navigation Signature: Pura Stewart MA January 08, 2024 1:12 PM Allergies As of Date: 01/08/2024 Noted Allergy Reaction CEPHALEXIN 07/27/2006 Date Reviewed: 12/03/2021 Reviewed by: Stephanie Ndiaye RN - Fully Assessed Reason for Visit: Population Health Navigation Outreach [3910] Cmt: Robert Alvarez [place] Prescriptions as of 01/08/2024 - HYDROcodone-acetaminophen (NORCO) 5-325 mg per tablet Take 1 tablet by mouth every 6 hours as needed. - ibuprofen (MOTRIN) 200 mg tablet Take 600 mg by mouth every 4 hours as needed. - Zwyotwo-Ciqczfywluxac-Vxoropus (EXCEDRIN MIGRAINE) 250-250-65 mg per tablet Take 2 tablets by mouth twice daily as needed for Pain. 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 Author Type: Network Security Administrator Type: Progress Notes Filed: 10/25/2023 13:41 Note Text: POPULATION HEALTH NAVIGATION OUTREACH Action/Robert Sapp [place] Discuss/Due for: Medicare Wellness, Mammogram HCC Score: .04969 Outcome: 1st attempt - Left Message 2nd attempt - MyChart message sent Reason for Outreach Care Gap/HCC or Scheduling Wellness Visits Care Gaps due: Medicare Annual Wellness Visit Breast Cancer Screening Patient Contacted: Unable or unnecessary to reach patient: Left message MyChart message sent HCC related Navigation Signature: Pura Stewart MA October 25, 2023 7:39 AM [facility] 10-25-2023 History of Presen t illness Narrative POPULATION HEALTH NAVIGATION OUTREACH Action/Robert Sapp [place] Discuss/Due for: Medicare Wellness, Mammogram HCC Score: .47831 Outcome: 1st attempt - Left Message 2nd attempt - MyChart message sent Reason for Outreach Care Gap/HCC or Scheduling Wellness Visits Care Gaps due: Medicare Annual Wellness Visit Breast Cancer Screening Patient Contacted: Unable or unnecessary to reach patient: Left message MyChart message sent HCC related Navigation Signature: Pura Stewart MA October 25, 2023 7:39 AM documented in this encounter [facility] 10-25-2023 Note Patient Outreach (NE TNAV) VERO PORTILLO ([id number]) 1955 F Date Time Provider Department 10/25/23 PURA STEWART During your visit today, we recorded the following information about you: Pura Stewart MA 10/25/2023 1:41 PM Signed POPULATION HEALTH NAVIGATION OUTREACH Action/Robert Sapp [place] Discuss/Due for: Medicare Wellness, Mammogram HCC Score: .31506 Outcome: 1st attempt - Left Message 2nd attempt - MyChart message sent Reason for Outreach Care Gap/HCC or Scheduling Wellness Visits Care Gaps due: Medicare Annual Wellness Visit Breast Cancer Screening Patient Contacted: Unable or unnecessary to reach patient: Left message MyChart message sent HCC related Navigation Signature: Pura Stewart MA October 25, 2023 7:39 AM Allergies As of Date: 10/25/2023 Noted Allergy Reaction CEPHALEXIN 07/27/2006 Date Reviewed: 12/03/2021 Reviewed by: Stephanie Ndiaye RN - Fully Assessed Reason for Visit: Population Health Navigation Outreach [3910] Cmt: Robert Alvarez [place] Prescriptions as of 10/25/2023 - HYDROcodone-acetaminophen (NORCO) 5-325 mg per tablet Take 1 tablet by mouth every 6 hours as needed. - ibuprofen (MOTRIN) 200 mg tablet Take 600 mg by mouth every 4 hours as needed. - Snqmnwe-Theivlbuxjpoh-Illwimgu (EXCEDRIN MIGRAINE) 250-250-65 mg per tablet Take 2 tablets by mouth twice daily as needed for Pain. 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 Author Type: Network Security Administrator Type: Progress Notes Filed: 09/20/2023 10:17 Note Text: POPULATION HEALTH NAVIGATION OUTREACH Action/FYI Robert Alvarez [place] Discuss/Due for: Medicare Wellness, Mammogram HCC Score: .13052 Outcome: 1st attempt - Left Message 2nd attempt - MyChart message sent Reason for Outreach Care Gap/HCC or Scheduling Wellness Visits Care Gaps due: Medicare Annual Wellness Visit Breast Cancer Screening Patient Contacted: Unable or unnecessary to reach patient: Left message MyChart message sent HCC related Navigation Signature: Pura Stewart MA September 20, 2023 9:25 AM [facility] 09-20-2023 History of Presen t illness Narrative POPULATION HEALTH NAVIGATION OUTREACH Action/Robert Sapp [place] Discuss/Due for: Medicare Wellness, Mammogram HCC Score: .13008 Outcome: 1st attempt - Left Message 2nd attempt - MyChart message sent Reason for Outreach Care Gap/HCC or Scheduling Wellness Visits Care Gaps due: Medicare Annual Wellness Visit Breast Cancer Screening Patient Contacted: Unable or unnecessary to reach patient: Left message MyChart message sent HCC related Navigation Signature: Pura Stewart MA September 20, 2023 9:25 AM documented in this encounter [facility] 09-20-2023 Note Patient Outreach (NE TNAV) VERO PORTILLO ([id number]) 1955 F Date Time Provider Department 09/20/23 PURA STEWART During your visit today, we recorded the following information about you: Pura Stewart MA 09/20/2023 10:17 AM Signed POPULATION HEALTH NAVIGATION OUTREACH Action/Robert Sapp [place] Discuss/Due for: Medicare Wellness, Mammogram HCC Score: .20535 Outcome: 1st attempt - Left Message 2nd attempt - MyChart message sent Reason for Outreach Care Gap/HCC or Scheduling Wellness Visits Care Gaps due: Medicare Annual Wellness Visit Breast Cancer Screening Patient Contacted: Unable or unnecessary to reach patient: Left message MyChart message sent HCC related Navigation Signature: Pura Stewart MA September 20, 2023 9:25 AM Allergies As of Date: 09/20/2023 Noted Allergy Reaction CEPHALEXIN 07/27/2006 Date Reviewed: 12/03/2021 Reviewed by: Stephanie Ndiaye RN - Fully Assessed Reason for Visit: Population Health Navigation Outreach [3910] Cmt: Robert Alvarez [place] Prescriptions as of 09/20/2023 - HYDROcodone-acetaminophen (NORCO) 5-325 mg per tablet Take 1 tablet by mouth every 6 hours as needed. - ibuprofen (MOTRIN) 200 mg tablet Take 600 mg by mouth every 4 hours as needed. - Wknzaio-Lhavfhmmcekhf-Qyastjwb (EXCEDRIN MIGRAINE) 250-250-65 mg per tablet Take 2 tablets by mouth twice daily as needed for Pain. 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] 03/23/2010 Colitis, acute [K52.9] 08/11/2014 10/09/2014 Mitral valve prolapse [I34.1] 10/09/2014 Liver cyst [K76.89] 11/04/2021 Encounter Status:Closed by PURA STEWART on 09/20/23 [facility] 09-06-2023 Note Patient Outreach (IN TMMN) VERO PORTILLO ([id number]) 1955 F Date Time Provider Department 09/06/23 [facility] During your visit today, we recorded the following information about you: Allergies As of Date: 09/06/2023 Noted Allergy Reaction CEPHALEXIN 07/27/2006 Date Reviewed: 12/03/2021 Reviewed by: Stephanie Ndiaye, SANJANA - Fully Assessed Visit Diagnosis:Encounter for screening mammogram for breast cancer [Z12.31] Order(s):BONNIE BEAR [[id number]] Order #: [id number] FUTURE Prescriptions as of 09/11/2023 - HYDROcodone-acetaminophen (NORCO) 5-325 mg per tablet Take 1 tablet by mouth every 6 hours as needed. - ibuprofen (MOTRIN) 200 mg tablet Take 600 mg by mouth every 4 hours as needed. - Femyptp-Ksdtgmsjrpzso-Tjuezfdl (EXCEDRIN MIGRAINE) 250-250-65 mg per tablet Take 2 tablets by mouth twice daily as needed for Pain. 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 Author Type: Network Security Administrator Type: Progress Notes Filed: 08/17/2023 14:31 Note Text: POPULATION HEALTH NAVIGATION OUTREACH Action/Robert Sapp [place] Discuss/Due for: Medicare Wellness, Mammogram HCC Score: .18640 Outcome: 1st attempt - Left Message 2nd attempt - MyChart message sent Reason for Outreach Care Gap/HCC or Scheduling Wellness Visits Care Gaps due: Medicare Annual Wellness Visit Breast Cancer Screening Patient Contacted: Unable or unnecessary to reach patient: Left message MyChart message sent HCC related Navigation Signature: Pura Stewart MA August 17, 2023 11:41 AM [facility] 08-17-2023 History of Presen t illness Narrative POPULATION HEALTH NAVIGATION OUTREACH Action/I Robert Alvarez [place] Discuss/Due for: Medicare Wellness, Mammogram HCC Score: .49613 Outcome: 1st attempt - Left Message 2nd attempt - MyChart message sent Reason for Outreach Care Gap/HCC or Scheduling Wellness Visits Care Gaps due: Medicare Annual Wellness Visit Breast Cancer Screening Patient Contacted: Unable or unnecessary to reach patient: Left message MyChart message sent HCC related Navigation Signature: Pura Stewart MA August 17, 2023 11:41 AM documented in this encounter [facility] 08-17-2023 Note Patient Outreach (NE TNAV) VERO PORTILLO ([id number]) 1955 F Date Time Provider Department 08/17/23 PURA STEWART NETNAV During your visit today, we recorded the following information about you: Pura Stewart MA 08/17/2023 2:31 PM Signed POPULATION HEALTH NAVIGATION OUTREACH Action/ Robert Alvarez [place] Discuss/Due for: Medicare Wellness, Mammogram HCC Score: .27127 Outcome: 1st attempt - Left Message 2nd attempt - MyChart message sent Reason for Outreach Care Gap/HCC or Scheduling Wellness Visits Care Gaps due: Medicare Annual Wellness Visit Breast Cancer Screening Patient Contacted: Unable or unnecessary to reach patient: Left message MyChart message sent HCC related Navigation Signature: Pura Stewart MA August 17, 2023 11:41 AM Allergies As of Date: 08/17/2023 Noted Allergy Reaction CEPHALEXIN 07/27/2006 Date Reviewed: 12/03/2021 Reviewed by: Stephanie Ndiaye, RN - Fully Assessed Reason for Visit: Population Health Navigation Outreach [3910] Cmt: Robert Alvarez [place] Prescriptions as of 08/17/2023 - HYDROcodone-acetaminophen (NORCO) 5-325 mg per tablet Take 1 tablet by mouth every 6 hours as needed. - ibuprofen (MOTRIN) 200 mg tablet Take 600 mg by mouth every 4 hours as needed. - Ygmyvxo-Bjirohrmcqxgn-Nimkcsum (EXCEDRIN MIGRAINE) 250-250-65 mg per tablet Take 2 tablets by mouth twice daily as needed for Pain. 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 Author Type: Network Security Administrator Type: Progress Notes Filed: 07/20/2023 11:48 Note Text: POPULATION HEALTH NAVIGATION OUTREACH Action/Robert Sapp [place] Discuss/Due for: Medicare Wellness, Mammogram HCC Score: .45136 Outcome: 1st attempt - Left Message 2nd attempt - MyChart message sent Reason for Outreach Care Gap/HCC or Scheduling Wellness Visits Care Gaps due: Medicare Annual Wellness Visit Breast Cancer Screening Patient Contacted: Unable or unnecessary to reach patient: Left message MyChart message sent HCC related Navigation Signature: Pura Stewart MA July 20, 2023 8:15 AM [facility] 07-20-2023 History of Presen t illness Narrative POPULATION HEALTH NAVIGATION OUTREACH Action/Robert Sapp [place] Discuss/Due for: Medicare Wellness, Mammogram HCC Score: .51681 Outcome: 1st attempt - Left Message 2nd attempt - MyChart message sent Reason for Outreach Care Gap/HCC or Scheduling Wellness Visits Care Gaps due: Medicare Annual Wellness Visit Breast Cancer Screening Patient Contacted: Unable or unnecessary to reach patient: Left message MyChart message sent HCC related Navigation Signature: Pura Stewart MA July 20, 2023 8:15 AM documented in this encounter [facility] 07-20-2023 Note Patient Outreach (FARZANA CAVANAUGHAV) VERO PORTILLO ([id number]) 1955 F Date Time Provider Department 07/20/23 PURA STEWART NETNAV During your visit today, we recorded the following information about you: Pura Stewart MA 07/20/2023 11:48 AM Signed POPULATION HEALTH NAVIGATION OUTREACH Action/FYI Robert Alvarez [place] Discuss/Due for: Medicare Wellness, Mammogram HCC Score: .13179 Outcome: 1st attempt - Left Message 2nd attempt - MyChart message sent Reason for Outreach Care Gap/HCC or Scheduling Wellness Visits Care Gaps due: Medicare Annual Wellness Visit Breast Cancer Screening Patient Contacted: Unable or unnecessary to reach patient: Left message MyChart message sent HCC related Navigation Signature: Pura Stewart MA July 20, 2023 8:15 AM Allergies As of Date: 07/20/2023 Noted Allergy Reaction CEPHALEXIN 07/27/2006 Date Reviewed: 12/03/2021 Reviewed by: Stephanie Ndiaye, SANJANA - Fully Assessed Reason for Visit: Population Health Navigation Outreach [3910] Cmt: Robert Alvarez [place] Prescriptions as of 07/20/2023 - HYDROcodone-acetaminophen (NORCO) 5-325 mg per tablet Take 1 tablet by mouth every 6 hours as needed. - ibuprofen (MOTRIN) 200 mg tablet Take 600 mg by mouth every 4 hours as needed. - Siyqtoi-Izfsvlgltlbst-Txjuqrju (EXCEDRIN MIGRAINE) 250-250-65 mg per tablet Take 2 tablets by mouth twice daily as needed for Pain. 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 Service: ? Author Type: ? Type: Progress Notes Filed: 05/13/2023 16:56 Note Text: POPULATION HEALTH NAVIGATION OUTREACH Action/FYI Pt due for annual wellness Called pt and left voicemail Sent mychart message Reason for Outreach Care Gap/HCC or Scheduling Wellness Visits Care Gaps due: Medicare Annual Wellness Visit Patient Contacted: Unable or unnecessary to reach patient: Left message MyChart message sent HCC related Navigation Signature: Anderson Hall May 13, 2023 4:55 PM [facility] 05-13-2023 History of Presen t illness Narrative POPULATION HEALTH NAVIGATION OUTREACH Action/FYI Pt due for annual wellness Called pt and left voicemail Sent mychart message Reason for Outreach Care Gap/HCC or Scheduling Wellness Visits Care Gaps due: Medicare Annual Wellness Visit Patient Contacted: Unable or unnecessary to reach patient: Left message MyChart message sent HCC related Navigation Signature: Anderson Hall May 13, 2023 4:55 PM documented in this encounter [facility] 05-13-2023 Note Patient Outreach (FARZANA TNAV) BANDARVERO Alina ([id number]) 1955 F Date Time Provider Department 05/13/23 ANDERSON HALL (PAS) NETNAV During your visit today, we recorded the following information about you: Anderson Hall 05/13/2023 4:56 PM Signed POPULATION HEALTH NAVIGATION OUTREACH Action/FYI Pt due for annual wellness Called pt and left voicemail Sent [employer] message Reason for Outreach Care Gap/HCC or Scheduling Wellness Visits Care Gaps due: Medicare Annual Wellness Visit Patient Contacted: Unable or unnecessary to reach patient: Left message MyChart message sent HCC related Navigation Signature: Anderson Hall May 13, 2023 4:55 PM Allergies As of Date: 05/13/2023 Noted Allergy Reaction CEPHALEXIN 07/27/2006 Date Reviewed: 12/03/2021 Reviewed by: Stephanie Ndiaye, SANJANA - Fully Assessed Reason for Visit: Population Health Navigation Outreach [3910] Cmt: [employer] Prescriptions as of 05/13/2023 - HYDROcodone-acetaminophen (NORCO) 5-325 mg per tablet Take 1 tablet by mouth every 6 hours as needed. - ibuprofen (MOTRIN) 200 mg tablet Take 600 mg by mouth every 4 hours as needed. - Rmiyocf-Uhbmgrdxxfhpd-Jqldvlzm (EXCEDRIN MIGRAINE) 250-250-65 mg per tablet Take 2 tablets by mouth twice daily as needed for Pain. 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 Left lateral position. Sedated, but responds to verbal stimuli. Color normal; skin warm and dry. Respirations wnl and unlabored. Abdomen soft and with + bowel sounds in quads X 4. Patient resting comfortably. Family at bedside. Stephanie Ndiaye RN documented in this encounter [facility] 12-03-2021 History and physical note UPDATED PROCEDURAL SEDATION HISTORY AND PHYSICAL EXAMINATION SERVICE DATE: 12/03/2021 SERVICE TIME: 10:21 PHYSICAL EXAM MUST BE COMPLETED ON ADMISSION PROCEDURE: colonoscopy, possible biopsies Procedure Indications: thickened left wall colon by CT scan, blood in stools The History and Physical (completed in the past 30 days) has been reviewed and the patient has been examined. The contents accurately reflect the patient's condition with the following additions or revisions since the H&P was completed. ASA Class: ASA Class:: Patient with mild systemic disease Examination indicates no changes. AIRWAY: Airway Visualization of Uvula: Yes Mouth opening greater than 2 fingerbreadths: Yes Neck Full Range of Motion: Yes LUNGS: Lungs clear to auscultation CARDIAC: Regular rhythm,Regular rate Provisional Diagnosis/Treatment Plan: colonoscopy, possible biopsies SEDATION GOAL: Moderate This H&P can be found in the Electronic Medical Record. Last colonoscopy in 2014 - no polyps found. -thickened left wall colon by CT scan, blood in stools SIGNATURE: Rosalia Perez MD PATIENT NAME: Vero Portillo DATE: December 03, 2021 TIME: 10:22 AM Source Note - Rosalia Perez MD - 12/03/2021 10:15 AM EDT HISTORY AND PHYSICAL Vero Portillo 1955 REFERRING PHYSICIAN: Preston Lr MD CHIEF COMPLAINT: Consult (Follow up ER 10/07/21-diarrhea and cramping) HPI: The patient is a 66 year old female referred for endoscopy. Vero notes a recent history of colitis for which she was treated with antibiotics-ED notes from 10/07/21 reviewed. Notes a few episodes of blood in stools. Had diarrhea and cramping with colitis episode which have since resolved. Patient denies any weight changes, black tarry stools or abdominal pain. Denies family history of colon issues. The patient notes no upper GI complaints. Vero has undergone prior endoscopy. Last colonoscopy 11/24/[address] Lawrence with removal of benign colon polyp, 5 year follow-up recommended. Patient denies chest pain, shortness of breath or recent hospitalizations. Denies problems with sedation in the past. 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 (Patient not taking: Reported on 11/09/2021) ibuprofen (MOTRIN) 200 mg tablet Take 600 mg by mouth every 4 hours as needed. (Patient not taking: Reported on 11/09/2021) Ufrvdjr-Qohtwksoxrkld-Kdzmgpbe (EXCEDRIN MIGRAINE) 250-250-65 mg per tablet Take 2 tablets by mouth twice daily as needed for Pain. (Patient not taking: Reported on 11/09/2021) Current Facility-Administered Medications Medication Dose Route Frequency perflutren lipid microspheres 1.3 mL in NaCl (PF) 0.9% 10 mL injection (DEFINITY) INTRAVENOUS DIRECTED PRN sodium chloride 0.9 % (flush) 10 mL (BD POSIFLUSH) 10 mL INTRAVENOUS DIRECTED PRN ALLERGIES: Cephalexin PERSONAL HISTORY: SOCIAL HISTORY Social History Tobacco Use Smoking status: Former Packs/day: 1.00 Years: 20.00 Pack years: 20.00 Types: Cigarettes Smokeless tobacco: Never Vaping Use Vaping Use: Never used Substance Use Topics Alcohol use: No Drug use: No FAMILY HISTORY: FAMILY HISTORY FAMILY HISTORY Problem Relation Age of Onset Cancer Sister Bladder Cancer Sister Melanoma skin Hypertension Father alive age 80 Stroke Paternal Grandfather [place] Stroke Mother alive age 79 Diabetes Mother Coronary Artery Disease Mother Cervical Cancer Mother REVIEW OF SYMPTOMS: The review of systems data was entered by the nurse and reviewed by co Nursing Notes: Taylor Fernandez RN 11/09/2021 1:49 PM Signed REVIEW OF SYSTEMS: General: The patient denies fatigue, denies weight loss, denies weight gain, denies feeling hot, and denies feelings of cold. Eyes: The patient denies glaucoma, denies eye injury/surgery, wears glasses or contacts. Ear/Nose/Throat: The patient NOTES allergies, denies hayfever, NOTES ear infections, and denies bloody noses. Cardiovascular: The patient denies chest pain, denies heart disease, NOTES high blood pressure,denies cardiac stent, denies prior heart attack, denies irregular heart beat, denies high cholesterol, denies poor circulation, denies heart failure, other cardiac issues, NOTES claudication, denies cold feet, denies peripheral arterial stent. Respiratory: The patient denies tuberculosis, denies pneumonia, denies frequent cough, denies pulmonary embolism, denies shortness of breath, and denies coughing up blood. Gastrointestinal: The patient denies difficulty swallowing, NOTES acid reflux, denies ulcers, denies vomiting, denies jaundice/hepatitis, denies gallbladder problems, denies black or tarry stools, NOTES hemorrhoids, NOTES bleeding from rectum, NOTES diverticulitis, denies constipation, denies diarrhea, denies loss of stool control, and denies hernias. Kidney/Bladder: The patient denies kidney stones, denies urine infections, and denies bloody urine. Skin: The patient denies a history of skin cancer, denies bleeding/changing moles, and denies a history of skin rash. Neurologic: The patient denies a history of epilepsy/convulsions, denies headaches, denies head/spinal injuries, and denies stroke/TIA. Psychiatric: The patient denies psychiatric medications, denies depression, and denies voices, denies substance abuse. Endocrine: The patient denies thyroid disorders, denies diabetes, and denies hormonal problems. Hematologic: The patient denies a history of bruising, denies bleeding, and denies anemia, denies blood clots. Infections: The patient NOTES a history of measles and mumps, denies rheumatic fever, and denies sexually transmitted diseases. Musculoskeletal: The patient NOTES back pain/injury, denies back problems, NOTES sciatica, NOTES knee/foot trouble, NOTES arthritis, or denies gout. When was patient's last Mammogram screening? Unknown Last Colonoscopy: 11/24/2014 Taylor Fernandez RN I have confirmed and edited as necessary, the PFSH and ROS obtained by others. Holly Chacon PA-C PHYSICAL EXAMINATION: General: The patient is 66 year old female, well nourished, well hydrated in no acute distress. The patient is oriented to time, place, and person. VITALS: Blood pressure 166/88, pulse 118, temperature 36.3 C (97.3 F), height 149.9 cm (4' 11), weight 85.9 kg (189 lb 6.4 oz), SpO2 96 %. Body mass index is 38.25 kg/m . HEENT: Normal cephalic, ataumatic, pupils are equally round, sclera are anicteric, mucous membranes are moist, oropharynx is clear. Neck has no masses, asymmetry or lymphadenopathy. Respiratory: Clear to auscultation and percussion. Normal respiratory excursion and pattern. Cardiac: Examination is regular rate and rhythm. Normal S1/S2 Abdominal exam: Soft, nontender, with no palpable masses. No hepatosplenomegaly. No palpable hernias. Extremities: no clubbing, cyanosis or edema. No adenopathy. LABORATORY VALUES: As Noted RADIOLOGIC STUDIES: As Noted Assessment IMPRESSION: recent history of colitis and blood in stools, encounter for colonoscopy PLAN: I have reviewed my findings with the surgeon. Will plan for lower endoscopy. Patient declined EGD. We discussed the risks and benefits of the planned endoscopy. I have informed the patient that complications can occur including failure to complete the endoscopy and perforation. The patient had the opportunity to ask questions concerning the planned endoscopy. My staff has also explained the procedure to the patient in understandable terms and has given the patient printed material concerning the procedure. The patient freely consents to surgery. The patient was offered a surgery/procedure at a [facility] facility. I have counseled the patient regarding the risk of exposure to and/or potential harm posed by the COVID-19 virus with having a surgery/procedure at this time versus the risk of delaying the surgery/procedure. It is not possible to know either the risk of delaying the surgery or procedure or chance of getting an infection with perfect accuracy, but a joint decision was made between the patient and myself to proceed at this time with endoscopy. I plan to use Golytely bowel preparation I have explained to the patient the difference between IV conscious sedation and MAC anesthesia - and I have offered either, according to the patient's wishes. I have explained that with IV conscious sedation there is no anesthesia provider available and therefore there is a limitation of the amount of IV medications that can be given and that the patient may wake up in the middle of the procedure and/or experience pain/discomfort during the procedure. Further discussion was done and the patient was given the opportunity to ask questions and all questions were answered. The patient chooses IV conscious sedation Diagnoses: (K52.9) Colitis (Z12.11) Screening for colon cancer Consultation requested by Dr. Lr for an opinion regarding colon complaints. My final recommendations will be communicated back to the requesting physician by way of shared Medical record or letter to requesting physician via [place] mail. Holly Chacon PA-C HISTORY AND PHYSICAL Vero Fuller Bandar 1955 REFERRING PHYSICIAN: Preston Lr MD CHIEF COMPLAINT: Consult (Follow up ER 10/07/21-diarrhea and cramping) HPI: The patient is a 66 year old female referred for endoscopy. Vero notes a recent history of colitis for which she was treated with antibiotics-ED notes from 10/07/21 reviewed. Notes a few episodes of blood in stools. Had diarrhea and cramping with colitis episode which have since resolved. Patient denies any weight changes, black tarry stools or abdominal pain. Denies family history of colon issues. The patient notes no upper GI complaints. Vero has undergone prior endoscopy. Last colonoscopy 11/24/[address] Lawrence with removal of benign colon polyp, 5 year follow-up recommended. Patient denies chest pain, shortness of breath or recent hospitalizations. Denies problems with sedation in the past. 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 (Patient not taking: Reported on 11/09/2021) ibuprofen (MOTRIN) 200 mg tablet Take 600 mg by mouth every 4 hours as needed. (Patient not taking: Reported on 11/09/2021) Jgqkftk-Tvdlyozkgqzcu-Oqddttxp (EXCEDRIN MIGRAINE) 250-250-65 mg per tablet Take 2 tablets by mouth twice daily as needed for Pain. (Patient not taking: Reported on 11/09/2021) Current Facility-Administered Medications Medication Dose Route Frequency perflutren lipid microspheres 1.3 mL in NaCl (PF) 0.9% 10 mL injection (DEFINITY) INTRAVENOUS DIRECTED PRN sodium chloride 0.9 % (flush) 10 mL (BD POSIFLUSH) 10 mL INTRAVENOUS DIRECTED PRN ALLERGIES: Cephalexin PERSONAL HISTORY: SOCIAL HISTORY Social History Tobacco Use Smoking status: Former Packs/day: 1.00 Years: 20.00 Pack years: 20.00 Types: Cigarettes Smokeless tobacco: Never Vaping Use Vaping Use: Never used Substance Use Topics Alcohol use: No Drug use: No FAMILY HISTORY: FAMILY HISTORY FAMILY HISTORY Problem Relation Age of Onset Cancer Sister Bladder Cancer Sister Melanoma skin Hypertension Father alive age 80 Stroke Paternal Grandfather NM Stroke Mother alive age 79 Diabetes Mother Coronary Artery Disease Mother Cervical Cancer Mother REVIEW OF SYMPTOMS: The review of systems data was entered by the nurse and reviewed by co Nursing Notes: Taylor Fernandez RN 11/09/2021 1:49 PM Signed REVIEW OF SYSTEMS: General: The patient denies fatigue, denies weight loss, denies weight gain, denies feeling hot, and denies feelings of cold. Eyes: The patient denies glaucoma, denies eye injury/surgery, wears glasses or contacts. Ear/Nose/Throat: The patient NOTES allergies, denies hayfever, NOTES ear infections, and denies bloody noses. Cardiovascular: The patient denies chest pain, denies heart disease, NOTES high blood pressure,denies cardiac stent, denies prior heart attack, denies irregular heart beat, denies high cholesterol, denies poor circulation, denies heart failure, other cardiac issues, NOTES claudication, denies cold feet, denies peripheral arterial stent. Respiratory: The patient denies tuberculosis, denies pneumonia, denies frequent cough, denies pulmonary embolism, denies shortness of breath, and denies coughing up blood. Gastrointestinal: The patient denies difficulty swallowing, NOTES acid reflux, denies ulcers, denies vomiting, denies jaundice/hepatitis, denies gallbladder problems, denies black or tarry stools, NOTES hemorrhoids, NOTES bleeding from rectum, NOTES diverticulitis, denies constipation, denies diarrhea, denies loss of stool control, and denies hernias. Kidney/Bladder: The patient denies kidney stones, denies urine infections, and denies bloody urine. Skin: The patient denies a history of skin cancer, denies bleeding/changing moles, and denies a history of skin rash. Neurologic: The patient denies a history of epilepsy/convulsions, denies headaches, denies head/spinal injuries, and denies stroke/TIA. Psychiatric: The patient denies psychiatric medications, denies depression, and denies voices, denies substance abuse. Endocrine: The patient denies thyroid disorders, denies diabetes, and denies hormonal problems. Hematologic: The patient denies a history of bruising, denies bleeding, and denies anemia, denies blood clots. Infections: The patient NOTES a history of measles and mumps, denies rheumatic fever, and denies sexually transmitted diseases. Musculoskeletal: The patient NOTES back pain/injury, denies back problems, NOTES sciatica, NOTES knee/foot trouble, NOTES arthritis, or denies gout. When was patient's last Mammogram screening? Unknown Last Colonoscopy: 11/24/2014 Taylor Fernandez RN I have confirmed and edited as necessary, the PFSH and ROS obtained by others. Holly Chacon PA-C PHYSICAL EXAMINATION: General: The patient is 66 year old female, well nourished, well hydrated in no acute distress. The patient is oriented to time, place, and person. VITALS: Blood pressure 166/88, pulse 118, temperature 36.3 C (97.3 F), height 149.9 cm (4' 11), weight 85.9 kg (189 lb 6.4 oz), SpO2 96 %. Body mass index is 38.25 kg/m . HEENT: Normal cephalic, ataumatic, pupils are equally round, sclera are anicteric, mucous membranes are moist, oropharynx is clear. Neck has no masses, asymmetry or lymphadenopathy. Respiratory: Clear to auscultation and percussion. Normal respiratory excursion and pattern. Cardiac: Examination is regular rate and rhythm. Normal S1/S2 Abdominal exam: Soft, nontender, with no palpable masses. No hepatosplenomegaly. No palpable hernias. Extremities: no clubbing, cyanosis or edema. No adenopathy. LABORATORY VALUES: As Noted RADIOLOGIC STUDIES: As Noted Assessment IMPRESSION: recent history of colitis and blood in stools, encounter for colonoscopy PLAN: I have reviewed my findings with the surgeon. Will plan for lower endoscopy. Patient declined EGD. We discussed the risks and benefits of the planned endoscopy. I have informed the patient that complications can occur including failure to complete the endoscopy and perforation. The patient had the opportunity to ask questions concerning the planned endoscopy. My staff has also explained the procedure to the patient in understandable terms and has given the patient printed material concerning the procedure. The patient freely consents to surgery. The patient was offered a surgery/procedure at a [facility] facility. I have counseled the patient regarding the risk of exposure to and/or potential harm posed by the COVID-19 virus with having a surgery/procedure at this time versus the risk of delaying the surgery/procedure. It is not possible to know either the risk of delaying the surgery or procedure or chance of getting an infection with perfect accuracy, but a joint decision was made between the patient and myself to proceed at this time with endoscopy. I plan to use Golytely bowel preparation I have explained to the patient the difference between IV conscious sedation and MAC anesthesia - and I have offered either, according to the patient's wishes. I have explained that with IV conscious sedation there is no anesthesia provider available and therefore there is a limitation of the amount of IV medications that can be given and that the patient may wake up in the middle of the procedure and/or experience pain/discomfort during the procedure. Further discussion was done and the patient was given the opportunity to ask questions and all questions were answered. The patient chooses IV conscious sedation Diagnoses: (K52.9) Colitis (Z12.11) Screening for colon cancer Consultation requested by Dr. Lr for an opinion regarding colon complaints. My final recommendations will be communicated back to the requesting physician by way of shared Medical record or letter to requesting physician via [place] mail. Holly Chacon PA-C documented in this encounter [facility] 11-29-2021 History of Presen t illness Narrative Patient presents with: Follow Up HPI: Patient presents today for office visit for long time since last visit and here to check up. Scheduled for colonoscopy 12/03/21. Check up done today. Has colonoscopy scheduled for Monday. Had MRI of liver. No longer with abd pain. Her bowels are feeling better. No current blood in the stools. Has been avoiding greasy foods and eating less. Losing weight. Using wheeled walker to ambulate. Does better with it than a cane. Feels like she is doing more. Feels pain is acceptable. Component Latest Ref Rng & Units 10/13/2021 Total Cholesterol, Nonfasting <200 mg/dL 176 Triglycerides, Nonfasting <150 mg/dL 88 HDL Cholesterol, Nonfasting >39 mg/dL 44 LDL Cholesterol, Nonfasting <100 mg/dL 114 (H) Non HDL Cholesterol, Nonfasting <130 mg/dL 132 (H) VLDL Cholesterol, Nonfasting <30 mg/dL 18 Total Chol/HDL Ratio, Nonfasting <5.10 mg/dL 4.00 LDL/HDL Ratio, Nonfasting <2.54 mg/dL 2.59 (H) Alk Phos Bone % 10.7 - 68.3 % 71.9 (H) Bone Fraction 12.9 - 52.6 U/L 125.1 (H) Alk Phos Liver % 26.0 - 86.2 % 28.1 Liver Fraction 16.0 - 69.3 U/L 48.9 Alk Phos Intestine % 0.0 - 24.2 % 0.0 Intestine Fraction 0.0 - 16.3 U/L 0.0 HIV 12 Combo (Ag/Ab) Nonreactive Nonreactive HIV 1/2 Ab HIV Interpretation Hemoglobin A1C 4.3 - 5.6 % 5.4 Estimated Average Glucose mg/dL 108 Hep C Antibody IA Negative Negative Free T4 0.9 - 1.7 ng/dL 1.3 TSH 0.270 - 4.200 mIU/L 2.340 Alkaline Phosphatase 34 - 123 U/L 174 (H) Component Latest Ref Rng & Units 10/13/2021 Total Cholesterol, Nonfasting <200 mg/dL 176 Triglycerides, Nonfasting <150 mg/dL 88 HDL Cholesterol, Nonfasting >39 mg/dL 44 LDL Cholesterol, Nonfasting <100 mg/dL 114 (H) Non HDL Cholesterol, Nonfasting <130 mg/dL 132 (H) VLDL Cholesterol, Nonfasting <30 mg/dL 18 Total Chol/HDL Ratio, Nonfasting <5.10 mg/dL 4.00 LDL/HDL Ratio, Nonfasting <2.54 mg/dL 2.59 (H) Alk Phos Bone % 10.7 - 68.3 % 71.9 (H) Bone Fraction 12.9 - 52.6 U/L 125.1 (H) Alk Phos Liver % 26.0 - 86.2 % 28.1 Liver Fraction 16.0 - 69.3 U/L 48.9 Alk Phos Intestine % 0.0 - 24.2 % 0.0 Intestine Fraction 0.0 - 16.3 U/L 0.0 HIV 12 Combo (Ag/Ab) Nonreactive Nonreactive HIV 1/2 Ab HIV Interpretation Hemoglobin A1C 4.3 - 5.6 % 5.4 Estimated Average Glucose mg/dL 108 Hep C Antibody IA Negative Negative Free T4 0.9 - 1.7 ng/dL 1.3 TSH 0.270 - 4.200 mIU/L 2.340 Alkaline Phosphatase 34 - 123 U/L 174 (H) Bone scan: IMPRESSION: Probable degenerative changes, as described. Had ECHO: CONCLUSIONS: - Technically difficult exam due to body habitus. - Exam indication: Pre op clearance - The left ventricle is small. Left ventricular systolic function is normal. EF = 70 5% (2D biplane) Normal left ventricular diastolic function. - The right ventricle is normal in size. Right ventricular systolic function is normal. - There are no significant valvular abnormalities. - Exam was compared with the prior echocardiographic exam performed on 10/10/2014, no significant change. MEDICATIONS: Current Outpatient Medications Medication Sig HYDROcodone-acetaminophen (NORCO) 5-325 mg per tablet Take 1 tablet by mouth every 6 hours as needed. (Patient not taking: Reported on 11/09/2021) ibuprofen (MOTRIN) 200 mg tablet Take 600 mg by mouth every 4 hours as needed. (Patient not taking: Reported on 11/09/2021) Ksolwpk-Bttljfdaogjkq-Mrphplks (EXCEDRIN MIGRAINE) 250-250-65 mg per tablet Take 2 tablets by mouth twice daily as needed for Pain. 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 Cough Liver cyst 11/04/2021 Multiple - incidental Mitral valve disorders(424.0) 1980s Postmenopausal atrophic vaginitis 09/05/2006 Tobacco use disorder 03/23/2010 PAST SURGICAL HISTORY Procedure Laterality Date DELIVERY ONLY x2 COLONOSCOPY FLX DX W/COLLJ SPEC WHEN PFRMD 11/24/2014 Colonoscopy PAST SURGICAL HISTORY OF 1970s sinus surgery PAST SURGICAL HISTORY OF oral surgery TONSILLECTOMY & ADENOIDECTOMY AGE 14/> FAMILY HISTORY Problem Relation Age of Onset Cancer Sister Bladder Cancer Sister Melanoma skin Hypertension Father alive age 80 Stroke Paternal Grandfather [place] Stroke Mother alive age 79 Diabetes Mother Coronary Artery Disease Mother Cervical Cancer Mother Social History Tobacco Use Smoking status: Former Packs/day: 1.00 Years: 20.00 Pack years: 20.00 Types: Cigarettes Smokeless tobacco: Never Vaping Use Vaping Use: Never used Substance Use Topics Alcohol use: No Drug use: No Reviewed current medications, allergies, past medical history, surgical history, family history and social history today. REVIEW OF SYSTEMS NECK: Negative for lumps, goiter, pain and significant neck swelling RESPIRATORY: Negative for cough, hemoptysis, wheezing, COPD, dyspnea or shortness of breath CARDIOVASCULAR: Negative for chest pain,edema. : No history of dysuria, frequency or incontinence MANAGER POWER: Negative for abnormal vaginal bleeding, abnormal vaginal discharge SKIN: Negative for lesions, rash, and itching All other reviewed and negative other than HPI. HEALTH MAINTENANCE: Reviewed health maintenance issues today and recommended the following in detail. SHINGRIX VACCINE(1 of 2) Never done PAP TESTING -declines. MAMMOGRAM -declines. DEPRESSION ASSESSMENT Never done VITALS: BP 172/82 Pulse 72 Wt 84.8 kg (187 lb) BMI 37.77 kg/m Last 4 Encounter Wt Readings: Date: Wt: 11/29/2021 84.8 kg (187 lb) 11/09/2021 85.9 kg (189 lb 6.4 oz) 10/07/2021 90.7 kg (200 lb) 03/09/2016 79.8 kg (176 lb) PHYSICAL EXAMINATION: General appearance: Well appearing, alert, in no acute distress, well-hydrated, well nourished. Skin: Skin color, texture, turgor normal, no suspicious rashes or lesions Head: Normocephalic, no masses, lesions, tenderness or abnormalities Eyes: Anicteric sclera. Pupils are equally round and reactive to light. Extraocular movements are intact. Ears: External ears normal, canals clear Lungs: Lungs clear to auscultation. No wheezing, rhonchi, rales Heart: RRR without murmur, gallop, or rubs. No ectopy Abdomen: Normal abdominal exam, Abdomen soft, non-tender. Bowel sounds normal. No masses, organomegaly Extremities: No deformities, edema, skin discoloration, clubbing or cyanosis. Good capillary refill. Musculoskeletal: No joint swelling, deformity, or tenderness ASSESSMENT/PLAN: 1. Elevated BP without diagnosis of hypertension - ICD9: 796.2, ICD10: R03.0 (primary diagnosis) - recheck bp in one month. Declines bp meds currently. 2. Mitral valve prolapse - ICD9: 424.0, ICD10: I34.1 Not seeing any issues on recent. - 3. 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 4. Colitis - ICD9: 558.9, ICD10: K52.9 - as above. Preston Lr MD Bp check in one month and return office in six months documented in this encounter [facility] 11-09-2021 History of Presen t illness Narrative HISTORY AND PHYSICAL Vero Portillo 1955 REFERRING PHYSICIAN: Preston Lr MD CHIEF COMPLAINT: Consult (Follow up ER 10/07/21-diarrhea and cramping) HPI: The patient is a 66 year old female referred for endoscopy. Vero notes a recent history of colitis for which she was treated with antibiotics-ED notes from 10/07/21 reviewed. Notes a few episodes of blood in stools. Had diarrhea and cramping with colitis episode which have since resolved. Patient denies any weight changes, black tarry stools or abdominal pain. Denies family history of colon issues. The patient notes no upper GI complaints. Vero has undergone prior endoscopy. Last colonoscopy 11/24/[address] Lawrence with removal of benign colon polyp, 5 year follow-up recommended. Patient denies chest pain, shortness of breath or recent hospitalizations. Denies problems with sedation in the past. 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 (Patient not taking: Reported on 11/09/2021) ibuprofen (MOTRIN) 200 mg tablet Take 600 mg by mouth every 4 hours as needed. (Patient not taking: Reported on 11/09/2021) Brljryr-Botquzmmmgjty-Aofjnvdd (EXCEDRIN MIGRAINE) 250-250-65 mg per tablet Take 2 tablets by mouth twice daily as needed for Pain. (Patient not taking: Reported on 11/09/2021) Current Facility-Administered Medications Medication Dose Route Frequency perflutren lipid microspheres 1.3 mL in NaCl (PF) 0.9% 10 mL injection (DEFINITY) INTRAVENOUS DIRECTED PRN sodium chloride 0.9 % (flush) 10 mL (BD POSIFLUSH) 10 mL INTRAVENOUS DIRECTED PRN ALLERGIES: Cephalexin PERSONAL HISTORY: Social History Tobacco Use Smoking status: Former Packs/day: 1.00 Years: 20.00 Pack years: 20.00 Types: Cigarettes Smokeless tobacco: Never Vaping Use Vaping Use: Never used Substance Use Topics Alcohol use: No Drug use: No FAMILY HISTORY: FAMILY HISTORY Problem Relation Age of Onset Cancer Sister Bladder Cancer Sister Melanoma skin Hypertension Father alive age 80 Stroke Paternal Grandfather NM Stroke Mother alive age 79 Diabetes Mother Coronary Artery Disease Mother Cervical Cancer Mother REVIEW OF SYMPTOMS: The review of systems data was entered by the nurse and reviewed by co Nursing Notes: Taylor Fernandez RN 11/09/2021 1:49 PM Signed REVIEW OF SYSTEMS: General: The patient denies fatigue, denies weight loss, denies weight gain, denies feeling hot, and denies feelings of cold. Eyes: The patient denies glaucoma, denies eye injury/surgery, wears glasses or contacts. Ear/Nose/Throat: The patient NOTES allergies, denies hayfever, NOTES ear infections, and denies bloody noses. Cardiovascular: The patient denies chest pain, denies heart disease, NOTES high blood pressure,denies cardiac stent, denies prior heart attack, denies irregular heart beat, denies high cholesterol, denies poor circulation, denies heart failure, other cardiac issues, NOTES claudication, denies cold feet, denies peripheral arterial stent. Respiratory: The patient denies tuberculosis, denies pneumonia, denies frequent cough, denies pulmonary embolism, denies shortness of breath, and denies coughing up blood. Gastrointestinal: The patient denies difficulty swallowing, NOTES acid reflux, denies ulcers, denies vomiting, denies jaundice/hepatitis, denies gallbladder problems, denies black or tarry stools, NOTES hemorrhoids, NOTES bleeding from rectum, NOTES diverticulitis, denies constipation, denies diarrhea, denies loss of stool control, and denies hernias. Kidney/Bladder: The patient denies kidney stones, denies urine infections, and denies bloody urine. Skin: The patient denies a history of skin cancer, denies bleeding/changing moles, and denies a history of skin rash. Neurologic: The patient denies a history of epilepsy/convulsions, denies headaches, denies head/spinal injuries, and denies stroke/TIA. Psychiatric: The patient denies psychiatric medications, denies depression, and denies voices, denies substance abuse. Endocrine: The patient denies thyroid disorders, denies diabetes, and denies hormonal problems. Hematologic: The patient denies a history of bruising, denies bleeding, and denies anemia, denies blood clots. Infections: The patient NOTES a history of measles and mumps, denies rheumatic fever, and denies sexually transmitted diseases. Musculoskeletal: The patient NOTES back pain/injury, denies back problems, NOTES sciatica, NOTES knee/foot trouble, NOTES arthritis, or denies gout. When was patient's last Mammogram screening? Unknown Last Colonoscopy: 11/24/2014 Taylor Fernandez RN I have confirmed and edited as necessary, the PFSH and ROS obtained by others. Holly Chacon PA-C PHYSICAL EXAMINATION: General: The patient is 66 year old female, well nourished, well hydrated in no acute distress. The patient is oriented to time, place, and person. VITALS: Blood pressure 166/88, pulse 118, temperature 36.3 C (97.3 F), height 149.9 cm (4' 11), weight 85.9 kg (189 lb 6.4 oz), SpO2 96 %. Body mass index is 38.25 kg/m . HEENT: Normal cephalic, ataumatic, pupils are equally round, sclera are anicteric, mucous membranes are moist, oropharynx is clear. Neck has no masses, asymmetry or lymphadenopathy. Respiratory: Clear to auscultation and percussion. Normal respiratory excursion and pattern. Cardiac: Examination is regular rate and rhythm. Normal S1/S2 Abdominal exam: Soft, nontender, with no palpable masses. No hepatosplenomegaly. No palpable hernias. Extremities: no clubbing, cyanosis or edema. No adenopathy. LABORATORY VALUES: As Noted RADIOLOGIC STUDIES: As Noted Assessment IMPRESSION: recent history of colitis and blood in stools, encounter for colonoscopy PLAN: I have reviewed my findings with the surgeon. Will plan for lower endoscopy. Patient declined EGD. We discussed the risks and benefits of the planned endoscopy. I have informed the patient that complications can occur including failure to complete the endoscopy and perforation. The patient had the opportunity to ask questions concerning the planned endoscopy. My staff has also explained the procedure to the patient in understandable terms and has given the patient printed material concerning the procedure. The patient freely consents to surgery. The patient was offered a surgery/procedure at a [facility] facility. I have counseled the patient regarding the risk of exposure to and/or potential harm posed by the COVID-19 virus with having a surgery/procedure at this time versus the risk of delaying the surgery/procedure. It is not possible to know either the risk of delaying the surgery or procedure or chance of getting an infection with perfect accuracy, but a joint decision was made between the patient and myself to proceed at this time with endoscopy. I plan to use Golytely bowel preparation I have explained to the patient the difference between IV conscious sedation and MAC anesthesia - and I have offered either, according to the patient's wishes. I have explained that with IV conscious sedation there is no anesthesia provider available and therefore there is a limitation of the amount of IV medications that can be given and that the patient may wake up in the middle of the procedure and/or experience pain/discomfort during the procedure. Further discussion was done and the patient was given the opportunity to ask questions and all questions were answered. The patient chooses IV conscious sedation Diagnoses: (K52.9) Colitis (Z12.11) Screening for colon cancer Consultation requested by Dr. Lr for an opinion regarding colon complaints. My final recommendations will be communicated back to the requesting physician by way of shared Medical record or letter to requesting physician via US mail. Holly Chacon PA-C documented in this encounter [facility] 11-09-2021 Nurse Note REVIEW OF SYSTEMS: General: The patient denies fatigue, denies weight loss, denies weight gain, denies feeling hot, and denies feelings of cold. Eyes: The patient denies glaucoma, denies eye injury/surgery, wears glasses or contacts. Ear/Nose/Throat: The patient NOTES allergies, denies hayfever, NOTES ear infections, and denies bloody noses. Cardiovascular: The patient denies chest pain, denies heart disease, NOTES high blood pressure,denies cardiac stent, denies prior heart attack, denies irregular heart beat, denies high cholesterol, denies poor circulation, denies heart failure, other cardiac issues, NOTES claudication, denies cold feet, denies peripheral arterial stent. Respiratory: The patient denies tuberculosis, denies pneumonia, denies frequent cough, denies pulmonary embolism, denies shortness of breath, and denies coughing up blood. Gastrointestinal: The patient denies difficulty swallowing, NOTES acid reflux, denies ulcers, denies vomiting, denies jaundice/hepatitis, denies gallbladder problems, denies black or tarry stools, NOTES hemorrhoids, NOTES bleeding from rectum, NOTES diverticulitis, denies constipation, denies diarrhea, denies loss of stool control, and denies hernias. Kidney/Bladder: The patient denies kidney stones, denies urine infections, and denies bloody urine. Skin: The patient denies a history of skin cancer, denies bleeding/changing moles, and denies a history of skin rash. Neurologic: The patient denies a history of epilepsy/convulsions, denies headaches, denies head/spinal injuries, and denies stroke/TIA. Psychiatric: The patient denies psychiatric medications, denies depression, and denies voices, denies substance abuse. Endocrine: The patient denies thyroid disorders, denies diabetes, and denies hormonal problems. Hematologic: The patient denies a history of bruising, denies bleeding, and denies anemia, denies blood clots. Infections: The patient NOTES a history of measles and mumps, denies rheumatic fever, and denies sexually transmitted diseases. Musculoskeletal: The patient NOTES back pain/injury, denies back problems, NOTES sciatica, NOTES knee/foot trouble, NOTES arthritis, or denies gout. When was patient's last Mammogram screening? Unknown Last Colonoscopy: 11/24/2014 Taylor Fernandez RN documented in this encounter [facility] 11-04-2021 Miscellaneous Notes Phoned patient and updated her with results/message. Patient voiced understanding. Can please let patient know that I received her MRI results. It shows that she has some cysts on her liver. As long as these are not causing any symptoms, we do not need to do anything further with these. documented in this encounter [facility] 11-03-2021 History of Presen t illness Narrative Radiology Service Progress Note DATE OF SERVICE: November 03, 2021 TIME: 10:45 AM PATIENT IDENTITY VERIFICATION COMPLETED USING TWO (2) STANDARD IDENTIFIERS: Name and Date of confirmed by patient verbally. FALL SCREENING: Has the patient had 2 falls in the last year or 1 fall with injury or currently using an Ambulatory Assistive Device (Walker, Cane, Wheelchair, Crutches, etc.)? No PATIENT GENDER DATA: Female. status: : No status: NO. PATIENT RELEVANT IMPLANT DATA REVIEWED: Yes ALLERGIES: Reviewed and unchanged CONTRAST ALLERGY: NO. EXAM: MRI - CONTRAST TYPE: GROUP II PERIPHERAL IV DATA: Ambulatory: A peripheral IV was started in the Right antecubital site with a Angio cath: 22 gauge. RADIOLOGY DEPARTMENT: MR; Exam(s) Completed: Body: Liver (routine) SIGNATURE: RT Cyndy(R) PATIENT NAME: Vero Portillo DATE: November 03, 2021 TIME: 10:45 AM documented in this encounter [facility] 10-29-2021 Miscellaneous Notes Pt notified. She verbalized understanding Sal Farfan LPN ----- Message from Alysha Gonzáles APRN.SURGERY SPECIALIST sent at 10/29/2021 4:03 PM EDT ----- Can please let patient know that I receive the bone scan results. The results are consistent with several areas of degenerative (arthritic) changes -- shoulders, thoracic and lumbar spine, hips, knees, feet, and ankle. No other concerning findings. Alysha Gonzáles APRN.SURGERY SPECIALIST documented in this encounter [facility] 10-29-2021 History of Presen t illness Narrative RADIOLOGY SERVICE PROGRESS NOTE SERVICE DATE: 10/29/2021 SERVICE TIME: 07:55 AM PATIENT IDENTITY VERIFICATION COMPLETED USING TWO (2) STANDARD IDENTIFIERS: Name and Date of confirmed by patient verbally FALL SCREENING: Has the patient had 2 falls in the last year or 1 fall with injury or currently using an Ambulatory Assistive Device (Walker, Cane, Wheelchair, Crutches, etc.)? No PATIENT GENDER DATA: .female : No ALLERGIES: Reviewed and unchanged MEDICATIONS REVIEWED: No PATIENT RELEVANT IMPLANT DATA REVIEWED: Not Applicable CREATININE: Creatinine Date Value Ref Range Status 10/07/2021 0.77 0.58 - 0.96 mg/dL Final 10/09/2014 0.68 (L) 0.70 - 1.40 mg/dL Final Estimated Glomerular Filtration Rate Date Value Ref Range Status 10/07/2021 86 >=60 mL/min/1.73m Final Comment: Estimated Glomerular Filtration Rate (eGFR) is calculated using the 2020 CKD-EPI creatinine equation. This equation utilizes serum creatinine, sex, and age as parameters. The creatinine assay has traceable calibration to isotope dilution-mass spectrometry. Refer to KDIGO guidelines for clinical interpretation. In patients with unstable renal function, e.g. those with acute kidney injury, the eGFR may not accurately reflect actual GFR. eGFR- Date Value Ref Range Status 10/09/2014 >60 Final P.O.C.T. RESULTS: N/A October 29, [address] PERFORMED: No IV SITE: Ambulatory: NM only - direct IV injection in the Right antecubital site POST EXAM PIV STATUS: Discontinued PROCEDURE TYPE: NM INJECT: Whole Body Bone Scan. 20.6 mCi Tc99m MDP. No other medications given.. ADMINISTRATION TIME: 08:06 PATIENT DISCHARGED TO: Ambulatory patient, [facility] area. A Diagnostic radioactive procedure has taken place, with no further precautions necessary other than routine body substance precautions. More information regarding radiation safety can be found using this link: [email or web address] SIGNATURE: RT Marquis(Saran) PATIENT NAME: Vero Portillo DATE: October 29, 2021 TIME: 10:27 AM PAGER/CONTACT #: documented in this encounter [facility] 10-13-2021 Instructions Alysha Gonzáles APRN.CNP - 10/13/2021 11:06 AM EDT Get labwork. Schedule the MRI. Schedule with general surgery. Schedule echocardiogram. documented in this encounter [facility] 10-13-2021 History of Presen t illness Narrative This is a 66 year old female who presents today with: Patient presents with: ER F/U: [facility] 10/07 dx: rectal bleeding/diverticulitis/colitis HISTORY OF PRESENT ILLNESS: Vero Portillo is a 66 year old female. Patient presents with: ER F/U: [facility] 10/07 dx: rectal bleeding/diverticulitis/colitis Patient has not been seen by primary care in several years. Patient has had no bleeding now for several hours. She did have fecal occult positive but it was not clearly grossly bloody.Her heart rate was initially elevated however she becomes hypertensive and tachycardic when she visits doctors. On reevaluation this was much improved. Her hemoglobin is normal. Her CT showed segment of wall thickening and edema of the left colon. Also numerous hypodensity lesions in the liver which I spoke to the patient about. I do think she stable for discharge as she has had no further bleeding here. I did advise her if she develops significant bleeding to return to the emergency department for admission for possible colonoscopy. Otherwise I will start her on antibiotics for the colitis. I also recommend she follow-up with her primary doctor for the abnormal liver imaging and also retest of her blood pressure. She will return to the emergency department if symptoms worsen. She reports that she is improved. She has had no more rectal bleeding. Her stools are becoming more formed. She has 1 day left of antibiotics. Discussed CT results with patient Consistent with either cysts versus hemangiomas. Recommended additional studies. She denies any history of liver problems. In the emergency room, patient's alk phos was also elevated. The remaining liver enzymes were normal. She has congenital varus deformity of the knees. She reports that ambulation has been more difficult. She uses a cane to ambulate. She reports that she really does not go out where she has to ambulate much. She does use flxk-kfi-cvvglbv Tylenol/ibuprofen to help with pain. She denies any chest pain/ abnormal shortness of breath/palpitations. She does have a history of mitral valve prolapse and on previous echo noted to have borderline dilated aorta. She is overdue for surveillance. PAST MEDICAL HISTORY: PAST MEDICAL HISTORY Diagnosis Date Congenital varus deformity of knee 03/23/2010 Cough Mitral valve disorders(424.0) 1980s Postmenopausal atrophic vaginitis 09/05/2006 Tobacco use disorder 03/23/2010 PAST SURGICAL HISTORY Procedure Laterality Date DELIVERY ONLY x2 COLONOSCOPY FLX DX W/COLLJ SPEC WHEN PFRMD 11/24/2014 Colonoscopy PAST SURGICAL HISTORY OF 1970s sinus surgery PAST SURGICAL HISTORY OF oral surgery TONSILLECTOMY & ADENOIDECTOMY AGE 14/> ALLERGIES Cephalexin MEDICATIONS Current Outpatient Medications Medication Sig metroNIDAZOLE (FLAGYL) 500 mg tablet Take 1 tablet by mouth every 8 hours for 7 days. ciprofloxacin HCl (CIPRO) 500 mg tablet Take 1 tablet by mouth twice daily for 7 days. ibuprofen (MOTRIN) 200 mg tablet Take 600 mg by mouth every 4 hours as needed. Ofjuvex-Dkjibmglczfst-Uttfrfeu (EXCEDRIN MIGRAINE) 250-250-65 mg per tablet Take 2 tablets by mouth twice daily as needed for Pain. HYDROcodone-acetaminophen (NORCO) 5-325 mg per tablet Take 1 tablet by mouth every 6 hours as needed. No current facility-administered medications for this visit. FAMILY HISTORY Problem Relation Age of Onset Cancer Sister Bladder Cancer Sister Melanoma skin Hypertension Father alive age 80 Stroke Paternal Grandfather [place] Stroke Mother alive age 79 Diabetes Mother Coronary Artery Disease Mother Cervical Cancer Mother Social History Tobacco Use Smoking status: Former Packs/day: 1.00 Years: 20.00 Pack years: 20.00 Types: Cigarettes Smokeless tobacco: Never Substance Use Topics Alcohol use: No Drug use: No EXAM: BP 142/100 Pulse 102 Resp 18 SpO2 95% PHYSICAL EXAM: General Appearance: Well appearing, alert, in no acute distress, well-hydrated, well nourished.. Skin: Skin color, texture, turgor normal, no suspicious rashes or lesions. Head: Normocephalic, no masses, lesions, tenderness or abnormalities. Eyes: Anicteric sclera. Pupils are equally round and reactive to light. Extraocular movements are intact. . Ears: External ears normal, canals clear, Normal TMs bilaterally. Oropharynx: Lips, mucosa, and tongue normal, teeth and gums normal, oropharynx normal. Neck: Supple, no adenopathy; thyroid symmetric, normal size, no bruits. Lungs: Lungs clear to auscultation. No wheezing, rhonchi, rales.. Heart: RRR without murmur, gallop, or rubs. No ectopy. Abdomen: Abdomen soft, non-tender. Bowel sounds normal. No masses, organomegaly. Extremities: No deformities, edema, skin discoloration, clubbing or cyanosis. Good capillary refill. . Neurologic: Gait w/ cane. ASSESSMENT/PLAN: 1. Colitis - ICD9: 558.9, ICD10: K52.9 (primary diagnosis) Clinically improved. Finish antibiotics as ordered. Referral to general surgery is overdue for colonoscopy. - CONSULT TO GENERAL SURGERY 2. Urinary frequency - ICD9: 788.41, ICD10: R35.0 Send urine for culture. - UA DIP, URINE (POC) - URINE CULTURE 3. Screening for colon cancer - ICD9: V76.51, ICD10: Z12.11 As above. - CONSULT TO GENERAL SURGERY 4. Liver lesion - ICD9: 573.8, ICD10: K76.9 Get imaging of the liver to follow-up on CT scan from the emergency room. - MRI LIVER WO/W IVCON - IV CONTRAST (RADIOLOGY PROCEDURE) 5. Special screening examination for viral disease - ICD9: V73.99, ICD10: Z11.59 - HEP C AB IA W/CONF SCRN 6. Screening for HIV (human immunodeficiency virus) - ICD9: V73.89, ICD10: Z11.4 - HIV 1 2 COMBO(AG/AB),WITH REFLEX TO DIFFERENTIATION 7. Elevated alkaline phosphatase level - ICD9: 790.5, ICD10: R74.8 We will go ahead and get isoenzyme. - ALK PHOS ISOENZYM BL 8. Weight gain - ICD9: 783.1, ICD10: R63.5 - T4 FREE/FREE THYROX - TSH BLD 9. Elevated glucose - ICD9: 790.29, ICD10: R73.09 Elevated glucose in the emergency room. We will go ahead and get A1c. - HGB A1C 10. 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 We will go ahead and schedule. - ECHO - PERFLUTREN LIPID MICROSPHERES 1.1 MG/ML INJECTION IN NS 10 ML - SODIUM CHLORIDE 0.9 % (FLUSH) INJECTION SYRINGE 11. Screening for hyperlipidemia - ICD9: V77.91, ICD10: Z13.220 - LIPID PANEL, NONFASTING 12. Mitral valve prolapse - ICD9: 424.0, ICD10: I34.1 Overdue for surveillance. - ECHO - PERFLUTREN LIPID MICROSPHERES 1.1 MG/ML INJECTION IN NS 10 ML - SODIUM CHLORIDE 0.9 % (FLUSH) INJECTION SYRINGE Discussed treatment plan and patient voices understanding. Patient's questions answered appropriately. Medications and potential side effects were discussed and patient voices understanding. Recheck in 1 month. Return to the office as scheduled or as needed for worsening/no improvement. This note was partially generated using [employer] voice recognition system. Note was reviewed for accuracy. There may be minor misspellings or grammar miscues with [employer] voice recognition. Alysha Gonzáles APRN.EMLIZA documented in this encounter [facility] 10-07-2021 Miscellaneous Notes Daughter calls to report that patient started with bloody diarrhea last night and continues to have bloody rectal discharge approximately every hour. Patient is also having abdominal pain. Instructed daughter to take patient to the ED for further evaluation. Daughter is agreeable. Patient hasn't been seen in office since 07/15/2016. Last colonoscopy on record is 11/24/2014 with no follow up scheduled as recommended 5 years later. Karen Padilla RN documented in this encounter [facility] 08-11-2014 History of Past i llness Narrative Problem Noted Date Resolved Date Colitis, acute 08/11/2014 10/09/2014 Overview: [facility] Tobacco use disorder 03/23/2010 07/15/2016 Chest pain, unspecified 09/18/2006 03/23/19 11 Acute bronchitis 07/27/2006 03/23/2010 documented as of this encounter (statuses as of 10/07/2021) [facility] History of Past illness Narrative* Problem Noted Date Resolved Date Colitis, acute 08/11/2014 10/09/2014 Overview: [facility] Tobacco use disorder 03/23/2010 07/15/2016 Chest pain, unspecified 09/18/2006 03/23/19 11 Acute bronchitis 07/27/2006 03/23/2010 documented as of this encounter (statuses as of 10/13/2021) [facility] of Past illness Narrative* Problem Noted Date Resolved Date Colitis, acute 08/11/2014 10/09/2014 Overview: [facility] Tobacco use disorder 03/23/2010 07/15/2016 Chest pain, unspecified 09/18/2006 03/23/19 11 Acute bronchitis 07/27/2006 03/23/2010 documented as of this encounter (statuses as of 10/25/2021) [facility] of [facility] Narrative* Problem Noted Date Resolved Date Colitis, acute 08/11/2014 10/09/2014 Overview: [facility] Tobacco use disorder 03/23/2010 07/15/2016 Chest pain, unspecified 09/18/2006 03/23/19 11 Acute bronchitis 07/27/2006 03/23/2010 documented as of this encounter (statuses as of 10/29/2021) [facility] Narrative* Problem Noted Date Resolved Date Colitis, acute 08/11/2014 10/09/2014 Overview: [facility] Tobacco use disorder 03/23/2010 07/15/2016 Chest pain, unspecified 09/18/2006 03/23/19 11 Acute bronchitis 07/27/2006 03/23/2010 documented as of this encounter (statuses as of 10/30/2021) [facility] Narrative* Problem Noted Date Resolved Date Colitis, acute 08/11/2014 10/09/2014 Overview: [facility] Tobacco use disorder 03/23/2010 07/15/2016 Chest pain, unspecified 09/18/2006 03/23/19 11 Acute bronchitis 07/27/2006 03/23/2010 documented as of this encounter (statuses as of 10/30/2021) [facility] N[facility]ative* Problem Noted Date Resolved Date Colitis, acute 08/11/2014 10/09/2014 Overview: [facility] Tobacco use disorder 03/23/2010 07/15/2016 Chest pain, unspecified 09/18/2006 03/23/19 11 Acute bronchitis 07/27/2006 03/23/2010 documented as of this encounter (statuses as of 11/04/2021) [facility]ative* Problem Noted Date Resolved Date Colitis, acute 08/11/2014 10/09/2014 Overview: [facility] Tobacco use disorder 03/23/2010 07/15/2016 Chest pain, unspecified 09/18/2006 03/23/19 11 Acute bronchitis 07/27/2006 03/23/2010 documented as of this encounter (statuses as of 11/15/2021) [facility] N[facility]ative* Problem Noted Date Resolved Date Colitis, acute 08/11/2014 10/09/2014 Overview: [facility] Tobacco use disorder 03/23/2010 07/15/2016 Chest pain, unspecified 09/18/2006 03/23/19 11 Acute bronchitis 07/27/2006 03/23/2010 documented as of this encounter (statuses as of 11/19/2021) [facility]* Problem Noted Date Resolved Date Colitis, acute 08/11/2014 10/09/2014 Overview: [facility] Tobacco use disorder 03/23/2010 07/15/2016 Chest pain, unspecified 09/18/2006 03/23/19 11 Acute bronchitis 07/27/2006 03/23/2010 documented as of this encounter (statuses as of 11/29/2021) [facility]ative* Problem Noted Date Resolved Date Colitis, acute 08/11/2014 10/09/2014 Overview: [facility] Tobacco use disorder 03/23/2010 07/15/2016 Chest pain, unspecified 09/18/2006 03/23/19 11 Acute bronchitis 07/27/2006 03/23/2010 documented as of this encounter (statuses as of 12/04/2021) [facility]ative* Problem Noted Date Diagnosed Date Resolved Date Colitis, acute 08/11/2014 10/09/2014 Overview: [facility] Tobacco use disorder 03/23/2010 017 Chest pain, unspecified 09/18/200602/28 Acute bronchitis 07/27/2006 03/23/2010 documented as of this encounter (statuses as of 05/13/2023) [facility] Col[facility]- Primary Other and unspecified noninfectious gastroenteritis and colitis Urinary frequency Screening for colon cancer Special screening for malignant neoplasms, colon Liver lesion Other specified disorders of liver Special screening examination for viral disease Special screening examination for unspecified viral disease Screening for HIV (human immunodeficiency virus) Special screening examination for other specified viral diseases Elevated alkaline phosphatase level Other nonspecific abnormal serum enzyme levels Weight gain Abnormal weight gain Elevated glucose Other abnormal glucose Aorta disorder (HCC) Unspecified disorders of arteries and arterioles Screening for hyperlipidemia Screening for lipoid disorders Mitral valve prolapse Mitral valve disorders [facility] Diagnosis Encounter for screening mammogram for breast cancer documented in this encounter [facility] note* Diagnosis Elevated alkaline phosphatase level Other nonspecific abnormal serum enzyme levels documented in this encounter [facility] note* Diagnosis Liver lesion Other specified disorders of liver documented in this encounter [facility] note* Diagnosis Colitis- Primary Other and unspecified noninfectious gastroenteritis and colitis Screening for colon cancer Special screening for malignant neoplasms, colon Blood in stool documented in this encounter [facility] note* Diagnosis Liver cyst Other specified disorders of liver [facility] Diagnosis Elevated BP without diagnosis of hypertension- Primary Mitral valve prolapse Mitral valve disorders Congenital varus deformity of knee Congenital deformity of knee (joint) Colitis Other and unspecified noninfectious gastroenteritis and colitis documented in this encounter [facility] note* Diagnosis Blood in stool- Primary Colitis Other and unspecified noninfectious gastroenteritis and colitis documented in this encounter [facility] note* Diagnosis Encounter for screening mammogram for breast cancer documented in this encounter [facility] for referral (narrative)* Outpatient Procedure (Routine) - Pending Review Specialty Diagnoses / Procedures Referred By Bethanie colon Referred To Contact [facility] Diagnoses Aorta disorder (HCC) Mitral valve prolapse Procedures ECHO ECHO TTHRC R-T 2D W/WOM-MODE COMPL SPEC&COLR D Alysha Gonzáles APRN.SURGERY SPECIALIST [address] [place] [address] [facility] [address] [place] [address] Referral ID Status Reason Start Date Expiration Date Visits Requested Visits Authorized [id number] Pending Review Auto-Generat ed Referral 10/13/2021 10/13/2022 1 1 * Consult, Test, Treat (Routine) - Pending Review Specialty Diagnoses / Procedures Referred By Bethanie colon Referred To Contact General Surgery Diagnoses Colitis Screening for colon cancer Procedures CONSULT TO GENERAL SURGERY OFFICE/OUTPATIENT [facility] 60-74 MINUTES Alysha Gonzáles APRN.CNP [address] [place] [address] Referral ID Status Reason Start Date Expiration Date Visits Requested Visits Authorized [id number] Pending Review PCP Requested Referral 10/13/2021 10/13/2022 1 1 * MRI/CT (Routine) - Pending Review Specialty Diagnoses / Procedures Referred By Contac t Referred To Contact MR IMAGING Diagnoses Liver lesion Procedures MRI LIVER WO/W IVCON MRI ABDOMEN W/O & W/CONTRAST MATERIAL Alysha Gonzáles APRN.SURGERY SPECIALIST [address] [place] [address] Mr Imaging Referral ID Status Reason Start Date Expiration Date Visits Requested Visits Authorized [id number] Pending Review Auto-Generat ed Referral 10/13/2021 11/12/2022 1 1 [facility] for referral (narrative)* Diagnostic Procedure Only (Routine) - Authorized Specialty Diagnoses / Procedures Referred By Contac t Referred To Contact BR IMAGING Diagnoses Encounter for screening mammogram for breast cancer Procedures BONNIE SCREENING SCREENING MAMMOGRAPHY BI 2-VIEW BREAST INC CAD Preston Lr MD [address] [place] [address] [facility] [address] [place] [address] Referral ID Status Reason Start Date Expiration Date Visits Requested Visits Authorized [id number] Authorized Auto-Generate d Referral Financial Clearance Required - Self Pay Patient Cleared - Qualified HCAP/501/FA 10/07/2021 01/06/2022 99 99 [facility] Diagnostic Procedure Only (Routine) - Authorized Specialty Diagnoses / Procedures Referred By Contac t Referred To Contact MOLECULAR & FUNCTIONAL IMAGING Diagnoses Elevated alkaline phosphatase level Procedures NM BONE WHOLE BODY BONE &/JOINT IMAGING WHOLE BODY Alysha Gonzáles APRN.SURGERY SPECIALIST [address] [place] [address] Molecular [facility] Functional [facility] [address] [place] [phone] Referral ID Status Reason Start Date Expiration Date Visits Requested Visits Authorized [id number] Authorized Auto-Generate d Referral Financial Clearance Required - Self Pay Patient Cleared - Qualified HCAP/501/FA 10/07/2021 01/06/2022 99 99 [facility] for referral (narrative)* Diagnostic Procedure Only (Routine) - New Request Specialty Diagnoses / Procedures Referred By Bethanie colon Referred To Contact BR IMAG[facility] Diagnoses Encounter for screening mammogram for breast cancer Procedures BONNIE SCREENING W CHEMA SCREENING DIGITAL BREAST TOMOSYNTHESIS BI SCREENING MAMMOGRAPHY BI 2-VIEW BREAST INC CAD Preston Lr MD [address] [place] [address] [facility] [address] [place] [address] Referral ID Status Reason Start Date Expiration Date Visits Requested Visits Authorized [id number] New Request Auto-Generat ed Referral 09/06/2023 10/05/2024 1 1 T [facility] for visit Narrative* Diagnostic Procedure Only (Routine) - Authorized Specialty Diagnoses / Procedures Referred By Bethanie colon Referred To Contact MOLECULAR & FUNCTIONAL IMAGING Diagnoses Elevated alkaline phosphatase level Procedures NM BONE WHOLE BODY BONE &/JOINT IMAGING WHOLE BODY Alysha Gonzáles APRN.CNP [address] [place] [address] Molecular & Functional Imaging [address] [place] [phone] Referral ID Status Reason Start Date Expiration Date Visits Requested Visits Authorized [id number] Authorized Auto-Generate d Referral Financial Clearance Required - Self Pay Patient Cleared - Qualified HCAP/501/FA 10/07/2021 01/06/2022 99 99 [facility] Summary Purpose Family History No Family History Records FoundNo Family History Records FoundNo Family History Records Found Advance Directives No Advanced Directives Records FoundNo Advanced Directives Records FoundNo Advanced Directives Records Found Reason for Referral Specialty Diagnoses / Procedures Referred By Contac t Referred To Contact MR IMAGING Diagnoses Liver lesion Procedures MRI LIVER WO/W IVCON MRI ABDOMEN W/O & W/CONTRAST MATERIAL Alysha Gonzáles APRN.SURGERY SPECIALIST [address] [place] [address] Mr Imaging Referral ID Status Reason Start Date Expiration Date Visits Requested Visits Authorized [id number] Authorized Auto-Generate d Referral Financial Clearance Required - Self Pay Patient Cleared - Qualified HCAP/501/FA 10/07/2021 01/06/2022 99 99 Specialty Diagnoses / Procedures Referred By Contac t Referred To Contact [facility] Diagnoses Colitis Blood in stool Procedures COLONOSCOPY DIAGNOSTIC COLONOSCOPY FLX DX W/COLLJ SPEC WHEN PFRMD Holly Chacon PA-C [address] [place] [address] [facility] [address] [place] [address] Referral ID Status Reason Start Date Expiration Date Visits Requested Visits Authorized [id number] Authorized Financial Clearance Required - Self Pay Patient Cleared - Qualified HCAP/501/FA 10/07/2021 01/06/2022 99 99 Medications Administered Section Inactive Administered Medications - up to 3 most recent administrations Medication Order MAR Action Action Date Dose Rate Site diphenhydrAMINE 12.5-50 mg injection (BENADRYL) 12.5-50 mg, INTRAVENOUS, DIRECTED, Starting on Mon12/03/21 at 1030, Until Mon12/03/21 at 1429, DOSING DIRECTED BY PHYSICIAN FOR PROCEDURAL SEDATION ONLY, Intraprocedure Given 12/03/2021 10:25 AM EDT 50 mg fentaNYL 50 mcg/mL 25-100 mcg injection (SUBLIMAZE) 25-100 mcg, INTRAVENOUS, DIRECTED, Starting on Mon12/03/21 at 1030, Until Mon12/03/21 at 1429, DOSING DIRECTED BY PHYSICIAN FOR PROCEDURAL SEDATION ONLY, Intraprocedure Given 12/03/2021 10:32 AM EDT 50 mcg Given 12/03/2021 10:23 AM EDT 50 mcg lactated ringers iv infusion 75 mL/hr, INTRAVENOUS, CONTINUOUS, Starting on Mon12/03/21 at 1000, Until Mon12/03/21 at 1051, Preprocedure New Bag/Syringe/Bottle 12/03/2021 9:58 AM EDT 75 mL/hr 75 mL/hr midazolam (PF) 1-5 mg injection (VERSED) 1-5 mg, INTRAVENOUS, DIRECTED, Starting on Mon12/03/21 at 1030, Until Mon12/03/21 at 1429, DOSING DIRECTED BY PHYSICIAN FOR PROCEDURAL SEDATION ONLY, Intraprocedure Given 12/03/2021 10:28 AM EDT 2 mg Given 12/03/2021 10:23 AM EDT 4 mg Additional Source Comments Source Comments (unrecognize d section and content) In the event this informatio n is protected by the Federal Confidentiality of Alcohol and Drug Abuse Patient Records regulations: The Federal rules restrict any use of the information to criminally investigate or prosecute any alcohol or drug abuse patient.[facility] the event this information is protected by the Federal Confidentiality of Alcohol and Drug Abuse Patient Records regulations: The Federal rules restrict any use of the information to criminally investigate or prosecute any alcohol or drug abuse patient.[facility] the event this information is protected by the Federal Confidentiality of Alcohol and Drug Abuse Patient Records regulations: The Federal rules restrict any use of the information to criminally investigate or prosecute any alcohol or drug abuse patient.[facility] the event this information is protected by the Federal Confidentiality of Alcohol and Drug Abuse Patient Records regulations: The Federal rules restrict any use of the information to criminally investigate or prosecute any alcohol or drug abuse patient.[facility] the event this information is protected by the Federal Confidentiality of Alcohol and Drug Abuse Patient Records regulations: The Federal rules restrict any use of the information to criminally investigate or prosecute any alcohol or drug abuse patient.[facility] the event this information is protected by the Federal Confidentiality of Alcohol and Drug Abuse Patient Records regulations: The Federal rules restrict any use of the information to criminally investigate or prosecute any alcohol or drug abuse patient.[facility] the event this information is protected by the Federal Confidentiality of Alcohol and Drug Abuse Patient Records regulations: The Federal rules restrict any use of the information to criminally investigate or prosecute any alcohol or drug abuse patient.[facility] the event this information is protected by the Federal Confidentiality of Alcohol and Drug Abuse Patient Records regulations: The Federal rules restrict any use of the information to criminally investigate or prosecute any alcohol or drug abuse patient.[facility] the event this information is protected by the Federal Confidentiality of Alcohol and Drug Abuse Patient Records regulations: The Federal rules restrict any use of the information to criminally investigate or prosecute any alcohol or drug abuse patient.[facility] the event this information is protected by the Federal Confidentiality of Alcohol and Drug Abuse Patient Records regulations: The Federal rules restrict any use of the information to criminally investigate or prosecute any alcohol or drug abuse patient.[facility] the event this information is protected by the Federal Confidentiality of Alcohol and Drug Abuse Patient Records regulations: The Federal rules restrict any use of the information to criminally investigate or prosecute any alcohol or drug abuse patient.[facility] the event this information is protected by the Federal Confidentiality of Alcohol and Drug Abuse Patient Records regulations: The Federal rules restrict any use of the information to criminally investigate or prosecute any alcohol or drug abuse patient.[facility] the event this information is protected by the Federal Confidentiality of Alcohol and Drug Abuse Patient Records regulations: The Federal rules restrict any use of the information to criminally investigate or prosecute any alcohol or drug abuse patient.[facility] the event this information is protected by the Federal Confidentiality of Alcohol and Drug Abuse Patient Records regulations: The Federal rules restrict any use of the information to criminally investigate or prosecute any alcohol or drug abuse patient.[facility] the event this information is protected by the Federal Confidentiality of Alcohol and Drug Abuse Patient Records regulations: The Federal rules restrict any use of the information to criminally investigate or prosecute any alcohol or drug abuse patient.[facility] the event this information is protected by the Federal Confidentiality of Alcohol and Drug Abuse Patient Records regulations: The Federal rules restrict any use of the information to criminally investigate or prosecute any alcohol or drug abuse patient.[facility] the event this information is protected by the Federal Confidentiality of Alcohol and Drug Abuse Patient Records regulations: The Federal rules restrict any use of the information to criminally investigate or prosecute any alcohol or drug abuse patient.[facility] the event this information is protected by the Federal Confidentiality of Alcohol and Drug Abuse Patient Records regulations: The Federal rules restrict any use of the information to criminally investigate or prosecute any alcohol or drug abuse patient.[facility] Reason for Visit (unrecogniz ed section and content) Reason Comments Follow Up Specialty Diagnoses / Procedures Referred By Contac t Referred To Contact GASTROENTEROLOGY Diagnoses Colitis Procedures office visit Self [facility] [address] [address] Referral ID Status Reason Start Date Expiration Date Visits Requested Visits Authorized [id number] Authorized Financial Clearance Required - Self Pay 10/07/2021 01/05/2022 99 99 Reason Comments Patient Question Reason Comments ER F/U [facility] 10/07 dx: rec jazmin bleeding/diverticulitis/colitis Specialty Diagnoses / Procedures Referred By Contac t Referred To Contact [facility] Diagnoses Colitis Procedures office visit Preston Lr MD [address] [place] [address] [facility] [address] [place] [address] Referral ID Status Reason Start Date Expiration Date Visits Requested Visits Authorized [id number] Authorized Financial Clearance Required - Self Pay Patient Cleared - Qualified HCAP/501/FA 10/07/2021 11/06/2021 99 99 Reason Comments Results Reason Comments Radiology NM Specialty Diagnoses / Procedures Referred By Contac t Referred To Contact GASTROENTEROLOGY Diagnoses Colitis Procedures office visit SelfMD [facility] [address] [place] [phone] Reason Comments Consult Follow up ER 10/07/21 -diarrhea and cramping Specialty Diagnoses / Procedures Referred By Contac t Referred To Contact [facility] Diagnoses Colitis Blood in stool Procedures COLONOSCOPY DIAGNOSTIC COLONOSCOPY FLX DX W/COLLJ SPEC WHEN PFRMD Holly Chacon PA-C [address] [place] [address]. [place] [address] [facility] [address] [place] [address] Referral ID Status Reason Start Date Expiration Date Visits Requested Visits Authorized [id number] Authorized Financial Clearance Required - Self Pay Patient Cleared - Qualified HCAP/501/FA 10/07/2021 01/06/2022 99 99 Reason Onset Date Comments Population Health Navigation Outreach 05/13/2023 [facility] Reason Onset Date Comments Population Health Navigation Outreach 07/20/2023 Robert Alvarez [place] Reason Onset Date Comments Population Health Navigation Outreach 08/17/2023 [employer] Reason Onset Date Comments Population Health Navigation Outreach 09/20/2023 [employer],[place] Reason Onset Date Comments Population Health Navigation Outreach 10/25/2023 [employer],[place] Reason Onset Date Comments Population Health Navigation Outreach 01/08/2024 [employer] Care Teams (unrecognized sec tion and content) Data Consultant Relationship Specialty Start Date End Date Preston Lr MD [address] [facility] [address] PCP - General Family Practice 10/09/14 Data Consultant Relationship Specialty Start Date End Date Preston rL MD [address] [facility] [place] [address] PCP - General Family Practice 10/09/14 Data Consultant Relationship Specialty Start Date End Date Preston Lr MD [address] [place] [address] PCP - General Family Practice 10/09/14 Data Consultant Relationship Specialty Start Date End Date Preston Lr MD [address] [facility] [place] [address] PCP - General Family Practice 10/09/14 Data Consultant Relationship Specialty Start Date End Date Preston Lr MD [address] [facility] [place] [address] PCP - General Family Practice 10/09/14 Data Consultant Relationship Specialty Start Date End Date Preston Lr MD [address] [facility] [place] [address] PCP - General Family Practice 10/09/14 Data Consultant Relationship Specialty Start Date End Date Preston Lr MD [address] [facility] [place] [address] PCP - General Family Medicine 10/09/14 Data Consultant Relationship Specialty Start Date End Date Preston Lr MD [address] [facility], [place] [address] PCP - General Family Medicine 10/09/14 Data Consultant Relationship Specialty Start Date End Date Preston Lr MD [address] [facility] [place], [place] [address] PCP - General Family Medicine 10/09/14 Data Consultant Relationship Specialty Start Date End Date Preston Lr MD [address] [facility], [place] [address] PCP - General Family Medicine 10/09/14 Data Consultant Relationship Specialty Start Date End Date Preston Lr MD [address] [facility], [place] [address] PCP - General Family Medicine 10/09/14 Data Consultant Relationship Specialty Start Date End Date Preston Lr MD [address] [facility], [place] [id number] PCP - General Family Medicine 10/09/14 INFORMATION SOURCE (unrecogn ized section and content) DATE CREATED AUTHOR 10/08/2021 [facility] DATE CREATED AUTHOR AUTHOR'S ORGANIZ ATION 01/09/2024 [facility] DATE CREATED AUTHOR AUTHOR'S ORGANIZ ATION 04/08/2024 [facility] FOR RECORDS PERTAINING TO PATIENTS WHO ARE OR HAVE BEEN ENROLLED IN A CHEMICAL DEPENDENCY/SUBSTANCEABUSE PROGRAM, SOME INFORMATION MAY BE OMITTED. This clinical summary was aggregated from multiple sources. Caution should be exercised in using it in the provision of clinical care. This summary normalizes information from multiple sources, and as a consequence, information in this document may materially change the coding, format and clinical context of patient data. In addition, data may be omitted in some cases. CLINICAL DECISIONS SHOULD BE BASED ON THE PRIMARY CLINICAL RECORDS. [employer] [email or web address] provides no warranty or guarantee of the accuracy or completeness of information in this document.
[2024-08-13] MEDS: 0.9% Normal Saline (1000mL) 1,000 ML 999 ML IV (05:08)
[2024-08-13 05:20] LABS: Absolute Lymphocyte Count 1.45 X10^3/uL (0.83-4.51); Absolute Neutrophil Count 9.6 X10^3/uL (2.0-7.7); Basophil# 0.04 X10^3/uL; Basophil% 0.3 % (0-1); Eosinophil# 0.02 X10^3/uL; Eosinophils% 0.2 % (0-5); Hematocrit 41.5 % (37-47); Lymphocyte # 1.45 X10^3/ul (0.83-4.51); Mean Corp Hgb Conc 33.7 g/dL (32-36); Mean Corpuscular Hgb 28.2 pg (27.0-32.0); Mean Corpuscular Volume 83.7 fL (81-99); Mean Platelet Vol. 10.2 fl (6.2-12.0); Monocyte# 0.96 X10^3/uL; NRBC Flagged by Analyzer 0 % (0-5); Neutrophil # 9.57 X10^3/uL (2.7-7.7); Neutrophil % 79.3 % (47-70); Platelet Count 212 K/mm3 (150-450); RBC Distribution Width CV 13.7 % (11.6-14.6); Red Blood Count 4.96 M/mm3 (4.2-5.4); White Blood Count 12.1 K/mm3 (4.4-11.0)
[2024-08-13 05:41] LABS: Lactic Acid 1.6 mmol/L (0.0-2.0)
[2024-08-13 05:52] LABS: AST(SGOT) 23 U/L (<=31); Alanine Aminotransfer ALT/SGPT 15 U/L (<=34); Albumin, Serum 4.1 g/dL (3.4-4.8); Alkaline Phosphatase 218 U/L (35-104); Anion Gap 12 (5-15); BUN 15 mg/dL (4-19); BUN/Creat Ratio 16.8 RATIO (10-20); Bilirubin, Direct < 0.08 mg/dL (0.00-0.30); Calcium,Total 9.1 mg/dL (7.6-11.0); Carbon Dioxide 20.2 mmol/L (21.0-32.0); Chloride 104 mmol/L (98-108); Creatinine, Serum 0.89 mg/dL (0.70-1.20); EST Glomerular Filtration Rate 71 (>60); Estimated Creatinine Clearance 64.08 ml/min (50-250); Globulin 2.7 g/dL (2.2-4.2); Glucose 119 mg/dL (70-99); Protein, Total 6.8 g/dL (5.9-8.4); Sodium Level 137 mmol/L (133-145); Total Bilirubin 0.45 mg/dL (0.00-1.30)
[2024-08-13 07:09] LABS: Prothrombin Time (Protime)PT. 13.6 SECONDS (11.7-14.9)
[2024-08-13 07:10] LABS: Partial Thromboplast Time 25.5 Seconds (24.1-36.2)
[2024-08-13] MEDS: Labetalol 20 MG/4 ML Vial 10 MG IV (07:14)
[2024-08-13] MEDS: TRANEXAMIC ACID 1,000 MG in 0.9% Normal Saline (100mL Bag) 100 ML 440 MG IV (07:27)
--- NOTE | 2024-08-13 07:36 | EX.ED.DYSGE1 ---
HPI History of Present Illness Chief Complaint: Diarrhea Informant: patient and family Narrative Narrative: Patient is a 69-year-old female with remote history of diverticulitis. She states that she was constipated for a few days and yesterday was able to stimulate multiple bowel movements. She states that initially the stool was normal. However around midnight she fell like she had to use the restroom once again and at this time it was bright red blood. She states that he does not have a history of bleeding disorder nor does she take a blood thinner. She states that throughout the evening she kept having recurrent bouts of bright red blood per rectum and secondary to this presents for evaluation. [facility] Medical History (Updated 08/13/24 @ 07:[address] Michael Dunbar, DO) UTI (urinary tract infection) Diverticulitis Home Medications ?Medication ?Instructions ?Recorded ?Last Taken ?Type NK 08/13/24 Unknown History Allergy/AdvReac Type Severity Reaction Status Date / Time cefaclor (From Ceclor) Allergy Shortness Verified 08/13/24 04:56 of breath cephalexin monohydrate (From Allergy Shortness Verified 08/13/24 04:56 Keflex) of breath Family History no significant family his Surgical History (Updated 08/13/24 @ 04:06 by Prakash Hdz) History of dental surgery Hx of section Hx of tonsillectomy Social History Smoking Status: Former smoker ROS ROS ED Constitutional Constitutional ED: Denies chills or fever(s) Eyes Eyes: Denies blurry vision or change in vision ENT ENT ED: Denies sore throat Cardiovascular Cardiovascular: Denies chest pain or palpitations Respiratory/Chest Respiratory/Chest: Denies cough or dyspnea Gastrointestinal Gastrointestinal: Reports abdominal pain, constipation and other Details: Positive bright red blood per rectum ; Denies diarrhea, nausea or vomiting Genitourinary Genitourinary ED: Denies dysuria or hematuria Musculoskeletal Musculoskeletal: Denies myalgias Integumentary Denies rash Neurologic Neurologic: Denies headache(s) Hematologic/Lymphatic Hematologic/Lymphatic: Denies easy bleeding or easy bruising EXAM Physical Exam Const Vital Signs: 08/13/24 04:05 08/13/24 06:05 08/13/24 07:07 Temperature 98.1 F Temperature Source Oral Pulse Rate 117 H 84 86 Respiratory Rate 18 18 18 Blood Pressure 204/112 H 181/81 H 202/96 H Blood Pressure Mean 142 114 131 Pulse Ox 97 95 97 Oxygen Delivery Method Room Air Room Air Room Air 08/13/24 07:08 08/13/24 07:30 08/13/24 07:44 Temperature 98 F Temperature Source Pulse Rate 89 Respiratory Rate 14 Blood Pressure 182/80 H 190/95 H 195/91 H Blood Pressure Mean 114 126 125 Pulse Ox 97 Oxygen Delivery Method Positive well nourished, well developed and obese General Appearance ED: well developed; Negative for pallor Nutritional Appearance: obese HEENT HEENT Narrative: Normocephalic atraumatic Eyes PERRL and EOMs intact bilaterally General Eye ED: Negative for pale conjunctiva or scleral icterus Neck supple Resp normal respiratory effort and clear to auscultation bilaterally Cardio regular rhythm Rate: tachycardic and other Other Details: Tachycardic rate with regular rhythm Radial and carotid pulses are equal and symmetric GI non-distended and no masses GI Narrative: Abdomen is soft and nondistended with normal active bowel sounds. There is mild pain with palpation in the left lower quadrant without voluntary guarding or rigidity. No pulsatile mass or fluid wave. No peritoneal signs Auscultation: normoactive bowel sounds Palpation: soft Narrative: Rectal exam shows no external hemorrhoids or anal fissure. Rectal tone is normal and there are no internal masses palpated. Stool is bright red in color and Hemoccult positive. Extremity normal to inspection Neuro oriented x3, CN's II-XII intact bilaterally and no sensory deficits noted Sensorium / Orientation: alert Motor Exam: strength 5/5 throughout Psych mental status grossly normal Skin no rashes or lesions noted General Skin Exam: Negative for jaundice or pallor MDM MDM MDM Narrative Medical decision making narrative: Patient arrived to the ER hypertensive but states that she typically gets this way around doctors. She reported initial constipation followed by bowel movements followed by bright red blood per rectum. In order to ensure she does not have acute blood loss anemia versus thrombocytopenia versus developing diverticulitis or active internal bleeding basic labs with a CTA were obtained. Labs revealed no clinically significant finding. CTA did question an area of active bleeding within the left colon which would correlate with her symptoms and exam. The case was discussed with glass maker Dr. Laguerre. He agrees with admission for continued observation and evaluation and recommends TXA be given at this time as well as medication to help improve the hypertension. Case was then discussed with the hospitalist who agrees to accept the patient for continued care. Of note the patient has had 4 bloody bowel movements while in the ER but despite doing this has remained hemodynamically stable and neurologically intact. History & Record Review Discussion w/independent historian: Patient and Family Lab Data Attestation: I reviewed the patient's lab results. Labs: Laboratory Results - last 24 hr 08/13/24 08/13/24 05:09 06:36 WBC 12.1 H RBC 4.96 Hgb 14.0 Hct 41.5 MCV 83.7 MCH 28.2 MCHC 33.7 RDW Std Deviation 42.0 RDW Coeff of Scarlett 13.7 Plt Count 212 MPV 10.2 Immature Gran % (Auto) 0.200 Neut % (Auto) 79.3 H Lymph % (Auto) 12.0 L [place] % (Auto) 8.0 Eos % (Auto) 0.2 Baso % (Auto) 0.3 Absolute Neuts (auto) 9.6 H Absolute Lymphs (auto) 1.45 Nucleated RBC % 0 PT Cancelled 13.6 INR Cancelled 1.0 APTT Cancelled 25.5 Sodium 137 Potassium 4.0 Chloride 104 Carbon Dioxide 20.2 L Anion Gap 12 BUN 15 Creatinine 0.89 Estim Creat Clear Calc 64.08 Est GFR (MDRD) Non-Af 71 BUN/Creatinine Ratio 16.8 Glucose 119 H Lactic Acid 1.6 Calcium 9.1 Total Bilirubin 0.45 Direct Bilirubin < 0.08 AST 23 ALT 15 Alkaline Phosphatase 218 H Total Protein 6.8 Albumin 4.1 Globulin 2.7 Radiography Diagnostic Testing: Clinical Impression(s) from Imaging Studies Abdomen/Pelvis CTA 08/13/24 04:51 IMPRESSION: Newly developed long segment of mural thickening and edema of the left colon with stranding of the pericolic fat and congested vascular arcades, possibly inflammatory. Related endoluminal hyperdense areas suggestive of active bleeding. Advise clinical and laboratory correlation. Patent abdominal aorta and its branches showing atherosclerotic changes with no aneurysmal dilatation, stenotic lesions or hypodense thrombi. Stable rest of the study findings Reading [facility] Management Discussion w/another healthcare provider: Hospitalist and Teacher Home Therapy Discharge Plan Dx/Rx/DC Orders Clinical Impression: GI (gastrointestinal bleed), Hypertension Disposition Disposition: Acute Care Hospital [facility]
--- NOTE | 2024-08-13 09:33 | EKG12_ITS ---
Test Reason : PREOP Blood Pressure : */* mmHG Vent. Rate : 94 BPM Atrial Rate : 94 BPM P-R Int : 130 ms QRS Dur : 86 ms QT Int : 346 ms P-R-T Axes : 47 35 36 degrees QTcB Int : 432 ms Normal sinus rhythm Normal ECG No previous ECGs available Confirmed by CARLOS ALBERTO NOVAK, AREN ([id number]), editorial intern IMTIAZ JONES ([id number]) on 08/14/2024 7:30:00 AM Referred By: Confirmed By: AREN CARCAMO MD
[2024-08-13] MEDS: Lisinopril 10 MG Tablet PO (09:52)
[2024-08-13] MEDS: Ciprofloxacin 400 MG/200 ML BAG 200 MG IV ×2 (09:53→21:42)
[2024-08-13] MEDS: Carvedilol 3.125 MG TABLET PO ×2 (09:53→17:36)
--- NOTE | 2024-08-13 14:08 | PCM.HP.STD ---
HPI - General General Date of Admission: 08/13/24 HPI Narrative VERO PORTILLO, is a 69 F who presents to the hospital with fevers and chills yesterday and then bloody bowel movements that were bright red in appearance overnight into this morning. She presented to the emergency room with a leukocytosis to 12.1, but normal hemoglobin and electrolytes. She has some left-sided tenderness to palpation on her abdomen and CT scan in the emergency room demonstrated a long segment of mural thickening and edema of the left colon with stranding and pericolic fat and congested vascular arcade. Gastroenterology was consulted in the ER and they are recommending colonoscopy. Of note she does not follow with primary care doctors and her systolic blood pressure is routinely's in the 180s to 190s at home. She denies any lightheadedness or dizziness. [facility] Medical History (Updated 08/13/24 @ 07:[address] Michael Dunbar, DO) UTI (urinary tract infection) Diverticulitis Home Medications ?Medication ?Instructions ?Recorded ?Last Taken ?Type NK 08/13/24 Unknown History Allergy/AdvReac Type Severity Reaction Status Date / Time cefaclor (From Ceclor) Allergy Shortness Verified 08/13/24 04:56 of breath cephalexin monohydrate (From Allergy Shortness Verified 08/13/24 04:56 Keflex) of breath Family History (Updated 08/13/24 @ 14:[address] Oleg Johnson MD) Other Cancer Diabetes Heart disease Family History no significant family his Surgical History (Updated 08/13/24 @ 04:06 by Prakash Hdz) History of dental surgery Hx of section Hx of tonsillectomy Social History Smoking Status: Former smoker ROS Constitutional Constitutional: Reports chills and fever(s); Denies fatigue or malaise Eyes Eyes: Denies blurry vision ENT HEENT: Denies headache(s) or nasal discharge Cardiovascular Cardiovascular: Denies chest pain, dyspnea on exertion or syncope Respiratory/Chest Respiratory/Chest: Denies cough, shortness of breath at rest or shortness of breath with exertion Gastrointestinal Gastrointestinal: Reports abdominal pain and hematochezia; Denies constipation, diarrhea, nausea or vomiting Genitourinary Genitourinary: Denies dysuria Neurologic Neurologic: Denies focal weakness, numbness or tremor(s) Psychiatric Psychiatric: Denies anxiety or depression Vital Signs Vital Signs Vital Signs: 08/13/24 04:05 08/13/24 06:05 08/13/24 07:07 Temperature 98.1 F Temperature Source Oral Pulse Rate 117 H 84 86 Respiratory Rate 18 18 18 Blood Pressure 204/112 H 181/81 H 202/96 H Blood Pressure Mean 142 114 131 Pulse Ox 97 95 97 Oxygen Delivery Method Room Air Room Air Room Air 08/13/24 07:08 08/13/24 07:30 08/13/24 07:44 Temperature 98 F Temperature Source Pulse Rate 89 Respiratory Rate 14 Blood Pressure 182/80 H 190/95 H 195/91 H Blood Pressure Mean 114 126 125 Pulse Ox 97 Oxygen Delivery Method Weight Weight: 212 lb Body Mass Index (BMI) 44.3 Physical Exam Narrative General: Alert, Oriented x3, Cooperative, No apparent distress HEENT: Atraumatic, PERRLA, EOMI, Normocephalic Oral: Moist Mucosa Neck: Supple, No JVD Lungs: Diminished normal air movement, No rhonchi, No wheeze, No rales Cardiovascular: Regular rate, Regular Rhythm, Normal S1, Normal S2, No murmurs Abdomen: Soft, LLQ TTP, Non-Distended, No Hepato-splenomegaly Extremities: No edema, Capillary Refill Less than 3 Seconds Skin: No rashes, No breakdown Musculoskeletal: No Tenderness to Palpation of Joints or Extremities Neurological: No focal neurological deficits, Motor Exam 5/5 strength throughout, Sensory exam intact to light touch and pain Psych/Mental Status: Normal Affect, Appropriate Results Lab / Micro Data 08/13/24 14:48 08/13/24 05:09 Labs: Laboratory Results - last 24 hr 08/13/24 05:09: WBC 12.1 H, RBC 4.96, Hgb 14.0, Hct 41.5, MCV 83.7, MCH 28.2, MCHC 33.7, RDW Std Deviation 42.0, RDW Coeff of Scarlett 13.7, Plt Count 212, MPV 10.2, Immature Gran % (Auto) 0.200, Neut % (Auto) 79.3 H, Lymph % (Auto) 12.0 L, [place] % (Auto) 8.0, Eos % (Auto) 0.2, Baso % (Auto) 0.3, Absolute Neuts (auto) 9.6 H, Absolute Lymphs (auto) 1.45, Nucleated RBC % 0, PT Cancelled, INR Cancelled, APTT Cancelled, Sodium 137, Potassium 4.0, Chloride 104, Carbon Dioxide 20.2 L, Anion Gap 12, BUN 15, Creatinine 0.89, Estim Creat Clear Calc 64.08, Est GFR (MDRD) Non-Af 71, BUN/Creatinine Ratio 16.8, Glucose 119 H, Lactic Acid 1.6, Calcium 9.1, Total Bilirubin 0.45, Direct Bilirubin < 0.08, AST 23, ALT 15, Alkaline Phosphatase 218 H, Total Protein 6.8, Albumin 4.1, Globulin 2.7 08/13/24 06:36: PT 13.6, INR 1.0, APTT 25.5 Micro: Microbiology 08/13/24 05:45 Stool Stool Occult Blood (ALISIA) - Final Occult Blood Positive Imaging Radiology Impression Abdomen/Pelvis CTA 08/13/24 04:51 IMPRESSION: Newly developed long segment of mural thickening and edema of the left colon with stranding of the pericolic fat and congested vascular arcades, possibly inflammatory. Related endoluminal hyperdense areas suggestive of active bleeding. Advise clinical and laboratory correlation. Patent abdominal aorta and its branches showing atherosclerotic changes with no aneurysmal dilatation, stenotic lesions or hypodense thrombi. Stable rest of the study findings Reading Location: [place] [id number] Assessment & Plan Assessment/Plan (1) GI (gastrointestinal bleed): PLAN: Plan 1. Colitis with lower GI bleed ? Unclear whether or not this is infectious or inflammatory given the leukocytosis we will treat with Cipro and Flagyl ? N.p.o. ? Plan for colonoscopy, appreciate GIs assistance ? She was really not complaining of diarrhea so much as cramping and bright red blood per rectum ?Not clear that stool studies are necessary at the moment, we will see what the the colonoscopy shows 2. Hypertension ? Given the elevation in her blood pressure and the fact that she never sees doctors and she is chronically at 180 at home, will start her on Coreg and lisinopril ? Will monitor make adjustments as necessary ? Will get a UA to see if she is spilling protein ? Will also use this opportunity to obtain some lipid panels and if necessary start her on a statin DVT: SCDs 75 minutes was spent on direct patient care, including documentation as well as chart review and collaboration with colleagues Charges/Coding Visit Charges Inpatient E&M: 69562 Init Hosp L3
[2024-08-13] MEDS: metroNIDAZOLE 500 MG/100 ML BAG 100 MG IV ×2 (14:14→23:03)
--- NOTE | 2024-08-13 15:00 | NURSING ---
Off unit to ENDO at this time.
[2024-08-13 15:08] LABS: Hematocrit 41.1 % (37-47); Hemoglobin 13.8 g/dL (12.0-15.0)
[2024-08-13 15:22] LABS: Cholesterol 222 mg/dL (<=200); High Density Lipoprotein 40 mg/dL; Low Density Lipoprotein Calc. 156 mg/dL; Triglycerides 130 mg/dL; Very Low Density Lipoprotein 26 mg/dL (5-40); cholesterol:hdl ratio screen 5.58
[2024-08-13] MEDS: Lactated Ringers 1,000 ML 15 ML IV (15:22)
--- NOTE | 2024-08-13 15:35 | PCM.PRE.AN2 ---
ASA Classification* ASA Classification ASA Classification: 3 (Uncontrolled HTN, ) and E Assessment & Plan Anesthesia* Anesthesia Assessment Anesthesia Assessment: Discussed sedation and/or anesthesia options, risks, benefits, and alternatives with patient/parents/legal guardian/POA. Questions invited. The patient/parents/legal guardian/POA seems to understand and agrees to proceed with anesthesia plan. Reviewed the physical assessment, medical history, allergy history and patient home medications list prior to surgery/procedure/anesthetic and documented any changes. Performed airway and anesthesia risk assessments. VERO PORTILLO, is a 69 F who presents to the hospital with fevers and chills yesterday and then bloody bowel movements that were bright red in appearance overnight into this morning. She presented to the emergency room with a leukocytosis to 12.1, but normal hemoglobin and electrolytes. She has some left-sided tenderness to palpation on her abdomen and CT scan in the emergency room demonstrated a long segment of mural thickening and edema of the left colon with stranding and pericolic fat and congested vascular arcade. Anesthesia Type Anesthesia Type: General History Source History Obtained from:: Patient and Chart Anesthesia Focused Assessment* Temperature: 98 F Pulse Rate: 86 Blood Pressure: 156/82 Respiratory Rate: 18 Pulse Ox: 94 Oxygen Delivery Method: Room Air Airway Assessment Mouth opens: >3 cm Mallampati Score: IV Teeth Condition: Missing (edentulous) Neck Range of motion (ROM): Full ROM Labs Anesthesia Preop lab: CBC WBC 12.1 K/mm3 (4.4-11.0) H 08/13/24 05:09 08/13/24 RBC 4.96 M/mm3 (4.2-5.4) 08/13/24 05:09 08/13/24 Hgb 13.8 g/dL (12.0-15.0) 08/13/24 14:48 08/13/24 Hct 41.1 % (37-47) 08/13/24 14:48 08/13/24 Plt Count 212 K/mm3 (150-450) 08/13/24 05:09 08/13/24 CHEMISTRY Potassium 4.0 mmol/L (3.3-5.1) 08/13/24 05:09 08/13/24 Sodium 137 mmol/L (133-145) 08/13/24 05:09 08/13/24 BUN 15 mg/dL (4-19) 08/13/24 05:09 08/13/24 Creatinine 0.89 mg/dL (0.70-1.20) 08/13/24 05:09 08/13/24 Glucose 119 mg/dL (70-99) H 08/13/24 05:09 08/13/24 COAG PT 13.6 SECONDS (11.7-14.9) 08/13/24 06:36 08/13/24 Pre-Assessment Diagnosis/Proposed Procedure Planned Operative Procedure(s): Colonoscopy Anesthesia History 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 When Was Last Pacemaker Check QUESTION #4 FULL TEXT: You/Your Family Experience fever (hyperthermia) with Anesthesia Last Oral Intake Last Oral intake: Last Oral Intake NPO since 10:00 08/13/24 14:19 Meds taken in AM with sips of water? Meds patient instructed to see 08/13/24 14:19 take am of surgery PONV PONV - valve pipe irrigator: PONV - valve pipe irrigator Female HX of Motion Sickness HX of N/V After Surgery Non-Smoker Duration of Surgery greater than 60 minutes Number of Risk Factors PONV Score Height & Weight Height & Weight: Anesthesia: Height & Weight Height 4 ft 10 in 08/13/24 14:19 Weight: 96.162 kg 08/13/24 14:19 Body Mass Index (BMI) 44.3 08/13/24 14:19 Respiratory Assessment Respiratory Assessment - valve pipe irrigator: Respiratory Tract Infection Hx - valve pipe irrigator Hx Respiratory Tract Infection STOP Sleep Apnea STOP Sleep Apnea - valve pipe irrigator: STOP Sleep Apnea - valve pipe irrigator Hx Hypertension Yes 08/13/24 08:43 Hx Sleep Apnea No 08/13/24 08:43 CPAP BIPAP Do you snore loudly (louder Yes 08/13/24 08:43 than talking or can be heard Do you often feel tired/ Yes 08/13/24 08:43 fatigued/ sleepy during daytime? Has anyone observed you stop No 08/13/24 08:43 breathing during sleep? STOP Results Positive 08/13/24 08:43 QUESTION #5 FULL TEXT : Do you snore loudly (louder than talking or can be heard through closed doors)? Tobacco Use History Tobacco Use History - valve pipe irrigator: Tobacco Use History - valve pipe irrigator Tobacco Use Smoking Status Former smoker 08/13/24 08:43 Hx Tobacco Use No 08/13/24 08:43 Years Smoking Packs Smoked per Day Smoking Cessation Date was Yes - quit smoking within 15 08/13/24 08:43 within the last 15 years years Hx Smoking Cessation Date Hx Smoking Cessation Counseling Hematologic Medial History Hematologic Hx - valve pipe irrigator: Hematologic Medical Hx - bottom pounder cement shoes Hx of Blood Transfusion No 08/13/24 08:43 Hx of Transfusion in last 3 No 08/13/24 08:43 Months Date of Last Transfusion (if within last 3 months) Ever experience any problems No 08/13/24 08:43 with transfusion(s)? Specify any problems Hx of Preganancy in last 3 No 08/13/24 08:43 Months Nurse Filling Out Transfusion [place] 08/13/24 08:43 & Questions: Date: 08/13/24 08/13/24 08:43 Time: 08:44 08/13/24 08:43 Patient unable to answer at this time (ie. confused, unrespo /Reproduction History /Reproductive History - valve pipe irrigator: /Reproductive Hx- valve pipe irrigator Hx Now Gestational Age (in weeks): EDC: Hx Hx Para Hx Section SAB Active Medications Active Medications: Current Medications Generic Name Dose Route Start Last Admin Trade Name Lorenzo PRN Reason Stop Dose Admin Carvedilol 3.125 mg 08/13/24 08:36 08/13/24 09:53 Carvedilol 3.125 Mg Tablet PO 3.125 mg BIDCM ANDREA Administration Protocol Ciprofloxacin 400 mg in 200 mls @ 200 mls/hr 08/13/24 10:00 08/13/24 10:53 Cipro IV Infused Q12 ANDREA Infusion Metronidazole 500 mg in 100 mls @ 100 mls/hr 08/13/24 14:00 08/13/24 15:31 Flagyl IV Infused Q8 ANDREA Infusion Lactated Ringer's 1,000 mls @ 15 mls/hr 08/13/24 15:15 08/13/24 15:22 IV 15 mls/hr .Q48H ANDREA Administration Lisinopril 10 mg 08/13/24 10:00 08/13/24 09:52 Lisinopril 10 Mg Tablet PO 10 mg DAILY ANDREA Administration Protocol Sodium Chloride 10 - 40 ml 08/13/24 08:48 0.9% Saline Lock 10 Ml Syringe IV UD PRN SALINE FLUSH PFSH Medical History (Updated 08/13/24 @ 07:[address] Michael Dunbar, DO) UTI (urinary tract infection) Diverticulitis Home Medications ?Medication ?Instructions ?Recorded ?Last Taken ?Type NK 08/13/24 Unknown History Allergy/AdvReac Type Severity Reaction Status Date / Time cefaclor (From Ceclor) Allergy Shortness Verified 08/13/24 04:56 of breath cephalexin monohydrate (From Allergy Shortness Verified 08/13/24 04:56 Keflex) of breath Family History (Updated 08/13/24 @ 14:[address] Oleg Johnson MD) Other Cancer Diabetes Heart disease Family History no significant family his Surgical History (Updated 08/13/24 @ 04:06 by Prakash Hdz) History of dental surgery Hx of section Hx of tonsillectomy Social History Smoking Status: Former smoker Review of Systems (Anesthesia) ROS Narrative System reviewed and no additional complaints, except as documented.
--- NOTE | 2024-08-13 15:51 | PCM.PN.BLA ---
Progress Note 69-year-old female with remote history of diverticulitis. She states that she was constipated for a few days and yesterday was able to stimulate multiple bowel movements. She states that initially the stool was normal. However around midnight she fell like she had to use the restroom once again and at this time it was bright red blood. CTA Abd/Pelvis W/WO Contrast Newly developed long segment of mural thickening and edema of the left colon with stranding of the pericolic fat and congested vascular arcades, possibly inflammatory. Related endoluminal hyperdense areas suggestive of active bleeding. Advise clinical and laboratory correlation. Patent abdominal aorta and its branches showing atherosclerotic changes with no aneurysmal dilatation, stenotic lesions or hypodense thrombi. Physical Exam Narrative General: Alert, Oriented x3, Cooperative, No apparent distress HEENT: Atraumatic, PERRLA, EOMI, Normocephalic Oral: Moist Mucosa Neck: Supple, No JVD Lungs: Diminished normal air movement, No rhonchi, No wheeze, No rales Cardiovascular: Regular rate, Regular Rhythm, Normal S1, Normal S2, No murmurs Abdomen: Soft, LLQ TTP, Non-Distended, No Hepato-splenomegaly Extremities: No edema, Capillary Refill Less than 3 Seconds Skin: No rashes, No breakdown Musculoskeletal: No Tenderness to Palpation of Joints or Extremities Neurological: No focal neurological deficits, Motor Exam 5/5 strength throughout, Sensory exam intact to light touch and pain Psych/Mental Status: Normal Affect, Appropriate Assessment & Plan Assessment/Plan (1) GI (gastrointestinal bleed): PLAN: She will undergo colonoscopy to look for source of lower GI bleeding. She was explained alternatives, risks, benefits include understanding bleeding, infection, sepsis, perforation, need for surgery . She will have an ASA of 3. Visit Charges Inpatient E&M: 64115 Subs Hosp L3
--- NOTE | 2024-08-13 16:00 | COLBX_PTH ---
PATIENT: VERO PORTILLO LOC: MS3 U#:[id number] AGE/SX: 69/F ROOM: UT314 RE08/13/[address]: Dr. Oleg Johnson MD : 1955 BED: 1 DIS: 08/15/2024 SPEC #: [id number] RECD: 08/14/24 10:01 STATUS: INYAH MARTINEZ #: [id number] CARMENZA: 08/13/24 16:[address]: Johny Laguerre DEPT: SURGICAL PATHOLOGY RECD BY: Reji Gonzalez ENTERED: 08/14/24 10:51 SP TYPE: COLON BX OTHR DR: MD Dr. Chavo Butler MD Tissues: A - SPLENIC FLEXURE Procedures: Immunohistochemical Stains Surgery Specimen Level IV Comments: @ Ordering doctor for SUIV edited from to @ by ANTONY at 08/14/24 1051 @ Submitting doctor edited from to @ by ANTONY at 08/14/24 1051 HEADER OPERATION: Colonoscopy, biopsy PRE-OP DIAGNOSIS: GI bleed TISSUE SUBMITTED: A- Splenic flexure colitis biopsy MICROSCOPIC DIAGNOSIS A. Colon, splenic flexure, colitis, biopsy: Ulcerated colonic mucosa with ischemic changes and abundant fibrinopurulent debris - see note. IHC for CMV (cytomegalovirus) is negative. Note: The histologic differential diagnosis includes ischemia, infection, and medication injury reaction. Recommend correlation with clinical and endoscopic findings. MICROSCOPIC DESCRIPTION Slides are reviewed. All matched controls reacted appropriately. These tests were developed and their performance characteristics determined by [facility]. They may not have been cleared or approved by the U.S. Food and Drug Administration. The FDA has determined that such clearance or approval is not necessary.? The above immunohistochemical/dualISH?markers are reviewed by the Pathologist. GROSS DESCRIPTION A. Received in fixative is one container labeled with the patient's name and designated Splenic flexure colitis biopsy. The specimen consists of six irregular fragments of light piper soft tissue that in aggregate measure <0.1 to 0.4 cm. The specimen is totally submitted in one cassette. DARSHANA/ 08/14/2024 CPT:68040 ,[id number]
--- NOTE | 2024-08-13 16:31 | PCM.POST.ANE ---
Anesthesia: Postop Eval I Current Vital Signs Temperature: 97.1 F Pulse Rate: 82 Blood Pressure: 106/56 Respiratory Rate: 16 Pulse Ox: 97 Oxygen Delivery Method: Room Air Assessment Airway patent: Yes Spontaneous unlabored respirations: Yes Mental status: Awake and Calm nausea: No Vomiting: No Anesthesia Complication: No Fluid Hydration Crystalloid volume administer (ml): 300 Total IV fluid infused: 300 Progress Note Anesthesia document: Postop Eval 1 completed: Yes
--- NOTE | 2024-08-13 16:39 | OP.CCLET_ITS ---
08/13/2024 Chavo Lr Re : Colonoscopy procedure for Donnie Hoang Dear Be This procedure was performed on Tuesday, August 13, 2024. My impressions and recommendations are as follows: Impressions : - Diffuse severe mucosal changes were found in the sigmoid colon, at the splenic flexure, in the transverse colon, at the hepatic flexure, in the ascending colon and in the cecum secondary to ischemic colitis. Biopsied. Recommendations : - [facility]. - Clear liquid diet. - Continue present medications. - Await pathology results. - Zosyn 3.375 g IV every 6 hours - Surgical consultation - Repeat CT scan tomorrow with oral and IV contrast - Check ESR, CRP, lactic acid - DC clonidine as Clonidine, an alpha-2 adrenergic agonist, can contribute to ischemic colitis, particularly in individuals with pre-existing risk factors like constipation or laxative abuse. While not a direct or common cause, clonidine's ability to induce constipation and slow colonic transit can exacerbate conditions leading to ischemic colitis - Autoimmune and vasculitis workup - Repeat colonoscopy for surveillance based on pathology results. My findings are described in the full procedure note, which is enclosed. If I can be of further assistance, please feel free to contact me at . Sincerely, Johny Laguerre DO 08/13/2024 4:39:14 PM This report has been signed electronically.
--- NOTE | 2024-08-13 16:39 | OP.COLON_ITS ---
Patient Name: Donnie Hoang Procedure Date: 08/13/2024 3:58 PM Date of : 1955 Age: 69 Procedure: Colonoscopy Indications: Hematochezia Providers: Johny Laguerre DO Medicines: Monitored Anesthesia Care Patient Profile: This is a 69 year old female. Refer to note in patient chart for documentation of history and physical. Last Colonoscopy: date unknown. Unable to locate last colonoscopy report. Complications: No immediate complications. Procedure: Pre-Anesthesia Assessment: - Prior to the procedure, a History and Physical was performed, and patient medications and allergies were reviewed. The patient is competent. The risks and benefits of the procedure and the sedation options and risks were discussed with the patient. All questions were answered and informed consent was obtained. Patient identification and proposed procedure were verified by the physician in the pre-procedure area. Mental Status Examination: alert and oriented. Airway Examination: normal oropharyngeal airway and neck mobility. Respiratory Examination: clear to auscultation. CV Examination: normal. Prophylactic Antibiotics: The patient does not require prophylactic antibiotics. Prior Anticoagulants: The patient has taken no anticoagulant or antiplatelet agents except for NSAID medication. ASA Grade Assessment: II - A patient with mild systemic disease. After reviewing the risks and benefits, the patient was deemed in satisfactory condition to undergo the procedure. The anesthesia plan was to use monitored anesthesia care (MAC). Immediately prior to administration of medications, the patient was re-assessed for adequacy to receive sedatives. The heart rate, respiratory rate, oxygen saturations, blood pressure, adequacy of pulmonary ventilation, and response to care were monitored throughout the procedure. The physical status of the patient was re-assessed after the procedure. After I obtained informed consent, the scope was passed under direct vision. Throughout the procedure, the patient's blood pressure, pulse, and oxygen saturations were monitored continuously. The Colonoscope was introduced through the anus with the intention of advancing to the ileum. The scope was advanced to the transverse colon before the procedure was aborted. Medications were given. The colonoscopy was performed without difficulty. The patient tolerated the procedure well. The quality of the bowel preparation was adequate. Scope In: 4:12:26 PM Scope Out: 4:21:41 PM Total Procedure Duration Time 0 hours 9 minutes 15 seconds Findings: The perianal and digital rectal examinations were normal. Diffuse severe mucosal changes characterized by granularity were found in the sigmoid colon, at the splenic flexure, in the transverse colon, at the hepatic flexure, in the ascending colon and in the cecum. Biopsies were taken with a cold forceps for histology. Verification of patient identification for the specimen was done. Estimated blood loss was minimal. Impression: - Diffuse severe mucosal changes were found in the sigmoid colon, at the splenic flexure, in the transverse colon, at the hepatic flexure, in the ascending colon and in the cecum secondary to ischemic colitis. Biopsied. Recommendation: - [facility]. - Clear liquid diet. - Continue present medications. - Await pathology results. - Zosyn 3.375 g IV every 6 hours - Surgical consultation - Repeat CT scan tomorrow with oral and IV contrast - Check ESR, CRP, lactic acid - DC clonidine as Clonidine, an alpha-2 adrenergic agonist, can contribute to ischemic colitis, particularly in individuals with pre-existing risk factors like constipation or laxative abuse. While not a direct or common cause, clonidine's ability to induce constipation and slow colonic transit can exacerbate conditions leading to ischemic colitis - Autoimmune and vasculitis workup - Repeat colonoscopy for surveillance based on pathology results. Procedure Code(s): --- Professional --- 48746, 52, Colonoscopy, flexible; with biopsy, single or multiple CPT copyright 2021 [employer] [place] [employer]. All rights reserved. The codes documented in this report are preliminary and upon label coder review may be revised to meet current compliance requirements. Johny Laguerre DO 08/13/2024 4:39:14 PM This report has been signed electronically. Number of Addenda: 0 Note Initiated On: 08/13/2024 3:58 PM
--- NOTE | 2024-08-13 17:34 | NURSING ---
Dr. Johnson and Dr. Ferro in room with pt talking with her and her several family members that are present.
[2024-08-13 18:00] LABS: Erythrocyte Sedimentation Rate 6 mm/hr (0-30)
--- NOTE | 2024-08-13 18:42 | PCM.POSTANE2 ---
Anesthesia Postop Eval I Sum Postop Eval Completion status Anesthesia document: Postop Eval 1 completed: Yes Anesthesia Postop Eval I Summary Anesthesia Postop Eval I Summary: Anesthesia Postop Eval I: Assessment Summary Airway patent Yes 08/13/24 16:33 [email or web address] Spontaneous unlabored Yes 08/13/24 16:33 [email or web address] respirations Mental status Awake,Calm 08/13/24 16:33 [email or web address] nausea No 08/13/24 16:33 [email or web address] Vomiting No 08/13/24 16:33 [email or web address] Anesthesia Postop Eval I: Fluid Summary Crystalloid volume administer 300 08/13/24 16:33 [email or web address] (ml) Colloids volume administered ( ml) Blood Product volume administered (ml) Total IV fluid infused 300 08/13/24 16:33 [email or web address] Anesthesia Postop Eval I: Summary Notes Anesthesia Complication No 08/13/24 16:33 [email or web address] Anesthesia Complication Comment: Post-operative progress note Anesthesia: Postop Eval II Evaluation Mental status: Awake Pain Level: 0 nausea: No Vomiting: No Complications Anesthesia Complication: No
--- NOTE | 2024-08-13 18:43 | CON.PCM.SX_ITS ---
Assessment & Plan Assessment/Plan (1) Ischemic colitis: PLAN: Patient is 69-year-old female who is admitted for acute on chronic ischemic colitis of the left colon spanning from the splenic flexure distally. She is status post colonoscopy with by gastroenterology but no active bleeding was identified. Patient does have a history of ischemic colitis dating back 10 years. She is a former tobacco user but stopped approximately 8 years ago. Abdominal exam is rather benign and her lactate is within normal limits, however, I do review of the endoscopic pictures that show extensive mucosal changes to the colon. Discussed the condition with patient and her family and that we would like to pursue conservative measures as a means of minimizing her risk for emergency surgery, however, if emergency surgery were required it would likely mean segmental colectomy with creation of end colostomy. Several questions related to this possibility reviewed. I also discussed that if she were to rebleed she could be considered for selective angiography, but this may make the colonic ischemia reach a tipping point in which surgery would be required. Presently recommend trying to optimize perfusion of the colon and limiting dietary intake to clear liquids until we can pursue serial abdominal exams. Will continue to follow. Silver Ferro MD General Surgery Endocrine Surgery Pager: [facility] [address] [place] [address], [facility], [address] [place] [address] Office: [phone] HPI Consult Data Date of Consult: 08/13/24 HPI Narrative Reason for Consultation: Ischemic colitis HPI Narrative: VERO PORTILLO, is a 69 F who presented to [facility] earlier today with complaints of fevers, chills, and bloody bowel movements. Gastroenterology was initially consulted given that patient's CTA imaging appeared to show active bleeding and she underwent unprepped colonoscopy earlier today. This showed extensive changes consistent with ischemic colitis but no active bleeding and prompted a consultation to gastroenterology. At the prompting of her daughter, patient describes how she has had some stomach cramping for the past 6 months. She notes that she then began with diarrhea yesterday at approximately 6 PM and then at midnight began with bright red blood per rectum. She and her daughter both confirm this was the same sequence she experienced approximately 10 years ago as they prepare to go on a family vacation in 2014. At that time she was prescribed an outpatient course of antibiotics through the emergency department and returned home where she had no further issues for approximately a year. Patient has a past medical history that is rather limited but she acknowledges she does avoid seeing a doctor unless she absolutely needs to. She has a history of tobacco use spanning approximately 20 pack years where she states she would start and stop with a maximum consumption of 2 packs/day. She last smoked approximately 8 years ago. Patient's past surgical history for an abdominal perspective consist of section x 2. [facility] Medical History (Updated 08/13/24 @ 18:[address] Silver Ferro MD) UTI (urinary tract infection) Diverticulitis Home Medications ?Medication ?Instructions ?Recorded ?Last Taken ?Type NK 08/13/24 Unknown History Allergy/AdvReac Type Severity Reaction Status Date / Time cefaclor (From Ceclor) Allergy Shortness Verified 08/13/24 04:56 of breath cephalexin monohydrate (From Allergy Shortness Verified 08/13/24 04:56 Keflex) of breath Family History (Updated 08/13/24 @ 14:[address] Oleg Johnson MD) Other Cancer Diabetes Heart disease Family History no significant family his Surgical History (Updated 08/13/24 @ 04:06 by Prakash Hdz) History of dental surgery Hx of section Hx of tonsillectomy Social History Smoking Status: Former smoker Physical Exam Const alert, oriented x3 and no apparent distress Constitutional Narrative: Appears slightly older than stated age GI GI Narrative: Obese, no visible hernias, nondistended, soft, mildly tender to palpation over the left abdominal quadrants Lab / Micro Data 08/13/24 14:48 08/13/24 05:09 Labs: Laboratory Results - last 24 hr 08/13/24 05:09: WBC 12.1 H, RBC 4.96, Hgb 14.0, Hct 41.5, MCV 83.7, MCH 28.2, MCHC 33.7, RDW Std Deviation 42.0, RDW Coeff of Scarlett 13.7, Plt Count 212, MPV 10.2, Immature Gran % (Auto) 0.200, Neut % (Auto) 79.3 H, Lymph % (Auto) 12.0 L, [place] % (Auto) 8.0, Eos % (Auto) 0.2, Baso % (Auto) 0.3, Absolute Neuts (auto) 9.6 H, Absolute Lymphs (auto) 1.45, Nucleated RBC % 0, ESR 6, PT Cancelled, INR Cancelled, APTT Cancelled, Sodium 137, Potassium 4.0, Chloride 104, Carbon Dioxide 20.2 L, Anion Gap 12, BUN 15, Creatinine 0.89, Estim Creat Clear Calc 64.08, Est GFR (MDRD) Non-Af 71, BUN/Creatinine Ratio 16.8, Glucose 119 H, Lactic Acid 1.6, Calcium 9.1, Total Bilirubin 0.45, Direct Bilirubin < 0.08, AST 23, ALT 15, Alkaline Phosphatase 218 H, Total Protein 6.8, Albumin 4.1, Globulin 2.7 08/13/24 06:36: PT 13.6, INR 1.0, APTT 25.5 08/13/24 14:48: Hgb 13.8, Hct 41.1, Triglycerides 130, Cholesterol 222 H, LDL Cholesterol, Calc 156, VLDL Cholesterol 26, HDL Cholesterol 40, Cholesterol/HDL Ratio 5.58 Micro: Microbiology 08/13/24 05:45 Stool Stool Occult Blood (ALISIA) - Final Occult Blood Positive Imaging Radiology Impression Abdomen/Pelvis CTA 08/13/24 04:51 IMPRESSION: Newly developed long segment of mural thickening and edema of the left colon with stranding of the pericolic fat and congested vascular arcades, possibly inflammatory. Related endoluminal hyperdense areas suggestive of active bleeding. Advise clinical and laboratory correlation. Patent abdominal aorta and its branches showing atherosclerotic changes with no aneurysmal dilatation, stenotic lesions or hypodense thrombi. Stable rest of the study findings Reading [facility] Charges/Coding Visit Charges Inpatient E&M: 63296 Init Hosp L2
[2024-08-13 18:53] LABS: Lactic Acid 1.2 mmol/L (0.0-2.0)
[2024-08-13 19:44] LABS: LDH 207 U/L (84-246)
[2024-08-13 20:45] LABS: Bacteria 0 SEEN /hpf (None Seen); Mucous, Urine 0 SEEN /hpf (<or=2+)
[2024-08-13 21:10] LABS: Color, Urine Straw (Yellow); Glucose, Dipstick Normal (Normal); Ketone-Dipstick Negative (Negative); Leukocyte Esterase-Dipstick Negative /ul (Negative); Nitrite-Dipstick Negative (Negative); Occult Blood-Urine 25 /ul (Negative); Protein-Dipstick Negative (Negative); Urine Bilirubin Dipstick Negative (Negative); Urine Clarity Clear (Clear); Urine Urobilinogen Normal (Normal)
[2024-08-13] MEDS: Atorvastatin Calcium 20 MG Tablet PO (21:48)
[2024-08-13 22:06] LABS: Red Blood Cells-Urine 0-5 SEEN /hpf (0-5); Squamous Epithelial Cells - UA 0-5 SEEN /hpf (5-10); White Blood Cells 0-5 SEEN /hpf (0-5)
[2024-08-13] MEDS: 0.9% Saline Lock 10 ML Syringe IV (23:03)
[2024-08-14] VITALS (8 sets, daily range): BP systolic 119–137; BP diastolic 56–71; PULSE 62–76; RESP 15–18; TEMP 36.4–36.9; O2SAT 96–98
[2024-08-14 05:10] LABS: Absolute Lymphocyte Count 1.84 X10^3/uL (0.83-4.51); Basophil# 0.05 X10^3/uL; Basophil% 0.3 % (0-1); Eosinophils% 0.7 % (0-5); Hematocrit 36.4 % (37-47); Hemoglobin 12.1 g/dL (12.0-15.0); Lymphocyte # 1.84 X10^3/ul (0.83-4.51); Lymphocyte % 12.9 % (19-41); Mean Corp Hgb Conc 33.2 g/dL (32-36); Mean Corpuscular Hgb 28.1 pg (27.0-32.0); Mean Corpuscular Volume 84.5 fL (81-99); Mean Platelet Vol. 9.4 fl (6.2-12.0); Monocyte# 1.22 X10^3/uL; Monocyte% 8.5 % (0-10); NRBC Flagged by Analyzer 0 % (0-5); Neutrophil # 11.02 X10^3/uL (2.7-7.7); Neutrophil % 77.2 % (47-70); Platelet Count 256 K/mm3 (150-450); RBC Distribution Width CV 13.9 % (11.6-14.6); RBC Distribution Width SD 43.2 fl (35.1-43.9); Red Blood Count 4.31 M/mm3 (4.2-5.4); White Blood Count 14.3 K/mm3 (4.4-11.0)
[2024-08-14] MEDS: metroNIDAZOLE 500 MG/100 ML BAG 100 MG IV ×3 (05:27→21:04)
[2024-08-14 05:38] LABS: Anion Gap 10 (5-15); BUN 10 mg/dL (4-19); BUN/Creat Ratio 12.1 RATIO (10-20); Calcium,Total 8.5 mg/dL (7.6-11.0); Carbon Dioxide 21.8 mmol/L (21.0-32.0); Chloride 105 mmol/L (98-108); Creatinine, Serum 0.81 mg/dL (0.70-1.20); EST Glomerular Filtration Rate 80 (>60); Estimated Creatinine Clearance 69.97 ml/min (50-250); Glucose 106 mg/dL (70-99); Potassium 3.8 mmol/L (3.3-5.1); Sodium Level 137 mmol/L (133-145)
--- NOTE | 2024-08-14 05:55 | CT_ITS ---
PROCEDURE: ABDOMEN/PELVIS WITH CONTRAST 08/14/2024 REASON FOR EXAM: ISCHEMIC COLITIS TECHNIQUE: ABDOMEN/PELVIS WITH CONTRAST. Coronal and Sagittal reconstruction series were provided. ORAL CONTRAST TYPE: None. CONTRAST: Isovue-300 VOLUME: 100 mL One or more dose reduction techniques were used (e.g., Automated exposure control, adjustment of the mA and/or kV according to patient size, use of iterative reconstruction technique. RADIATION DOSE SUMMARY: CTDlvol: 21 mGy DLP: 1253.24 mGycm COMPARISON: Comparison is made with prior study dated August 13, 2024. FINDINGS: Lung bases: Mild dependent atelectasis Liver: Fatty infiltration of the liver. Multiple cystic structure seen throughout both the right and left lobes of the liver. There has been no change. Gallbladder: Unremarkable Spleen: Normal size. Pancreas: Normal size without evidence of mass surrounding inflammation or ductal dilation. Adrenals: Unremarkable Kidneys: Normal renal sizes. No hydronephrosis. Bladder: Unremarkable Reproductive Organs: Unremarkable Bowel: Once again, there is evidence of inflammatory changes in keeping with colitis involving the distal portion of the transverse colon as well as the descending colon. This is unchanged. Appendix: Unremarkable Lymph nodes: Unremarkable Vasculature: Unremarkable Peritoneum / Retroperitoneum: Unremarkable Bones: Degenerative changes of the spine. CT/Abdomen/Pelvis WITH Contrast IMPRESSION: Stable findings of colitis of the left hemicolon. Reading Location: [place] [address]
--- NOTE | 2024-08-14 07:18 | PN.SURG_ITS ---
Subjective Subjective Patient seen and evaluated during AM rounds. She is initially found in the bathroom. She states that she had strong urgency to use the bathroom upon ingestion of the contrast for her repeat CAT scan today. She otherwise seems to confirm that her abdominal discomfort is stable. She reports small amount of blood with the above bowel movements. Objective Data Objective Data Vital Signs: Vital Signs Temp Pulse Resp BP Pulse Ox O2 Del Method 98.2 F 76 18 119/56 L 96 Room Air 08/14/24 02:46 08/14/24 02:46 08/14/24 02:46 08/14/24 02:46 08/14/24 02:46 08/14/24 02:47 Oxygen Delivery Method Room Air Weight: 212 lb Body Mass Index (BMI) 44.3 Intake & Output: Intake and Output for Last 24 Hours 08/12/24 08/13/24 08/14/24 23:59 23:59 23:59 Intake Total 1941.75 / 1941.75 400 / 400 Output Total 2 / 2 Balance 1939.75 / 1939.75 400 / 400 Lab / Micro Data 08/14/24 04:54 08/14/24 04:54 Labs: Laboratory Results - last 24 hr 08/13/24 05:09: ESR 6, Lactate Dehydrogenase 207, C-React Prot Ext Range 38.90 H 08/13/24 14:48: Hgb 13.8, Hct 41.1, Triglycerides 130, Cholesterol 222 H, LDL Cholesterol, Calc 156, VLDL Cholesterol 26, HDL Cholesterol 40, Cholesterol/HDL Ratio 5.58 08/13/24 17:56: Lactic Acid 1.2 08/13/24 20:05: Urine Color Straw, Urine Clarity Clear, Urine pH 6.0, Ur Specific [place] 1.010, Urine Protein Negative, Urine Glucose (UA) Normal, Urine Ketones Negative, Urine Occult Blood 25 H, Urine Nitrite Negative, Urine Bilirubin Negative, Urine Urobilinogen Normal, Ur Leukocyte Esterase Negative, Urine RBC 0-5 SEEN, Urine WBC 0-5 SEEN, Ur Squamous Epith Cells 0-5 SEEN, Urine Bacteria 0 SEEN, Urine Mucus 0 SEEN 08/14/24 04:54: WBC 14.3 H, RBC 4.31, Hgb 12.1, Hct 36.4 L, MCV 84.5, MCH 28.1, MCHC 33.2, RDW Std Deviation 43.2, RDW Coeff of Scarlett 13.9, Plt Count 256, MPV 9.4, Immature Gran % (Auto) 0.400, Neut % (Auto) 77.2 H, Lymph % (Auto) 12.9 L, [place] % (Auto) 8.5, Eos % (Auto) 0.7, Baso % (Auto) 0.3, Absolute Neuts (auto) 11.0 H, Absolute Lymphs (auto) 1.84, Nucleated RBC % 0, Sodium 137, Potassium 3.8, Chloride 105, Carbon Dioxide 21.8, Anion Gap 10, BUN 10, Creatinine 0.81, Estim Creat Clear Calc 69.97, Est GFR (MDRD) Non-Af 80, BUN/Creatinine Ratio 12.1, Glucose 106 H, Calcium 8.5, RICKEY-1 Antibody TNP, Sm (Shipman) Antibody TNP, [employer] Antibody TNP, Scl-70 Scleroderma Ab TNP, Antichromatin Antibodies TNP, Centromere B Antibody TNP Micro: Microbiology 08/13/24 05:45 Stool Stool Occult Blood (ALISIA) - Final Occult Blood Positive Physical Exam Const oriented x3 Constitutional Narrative: Mild distress from urgency felt with additional stools Resp normal respiratory effort GI GI Narrative: Nondistended, soft, stable mild tenderness to left lower quadrant and suprapubic positions Assessment & Plan Assessment/Plan (1) Ischemic colitis: PLAN: Patient is 69-year-old female who is admitted for acute on chronic ischemic colitis of the left colon spanning from the splenic flexure distally. She is status post colonoscopy with by gastroenterology but no active bleeding was identified. Patient appears clinically stable but with slight increase in her leukocytosis. Repeat CT imaging today was also unchanged. Recommend ongoing conservative management with liquid diet and IV antibiotics. Additionally, would like to target MAP of at least 65 mmHg for appropriate colonic perfusion. Will continue to follow with serial abdominal exams. Silver Ferro MD General Surgery Endocrine Surgery Pager: [facility] [address] [place] [address], [address] [place] [address] Office: [phone] Charges/Coding Visit Charges Inpatient E&M: 44536 Subs Hosp L2
--- NOTE | 2024-08-14 09:43 | PN.HOSP_ITS ---
Subjective Subjective Pain is a bit improved, will back off on her blood pressure medications as she responded a little too well given for where she chronically sits Objective Data Objective Data Vital Signs: Vital Signs Temp Pulse Resp BP Pulse Ox O2 Del Method 98.2 F 76 18 119/56 L 96 Room Air 08/14/24 02:46 08/14/24 02:46 08/14/24 02:46 08/14/24 02:46 08/14/24 02:46 08/14/24 02:47 Oxygen Delivery Method Room Air Weight: 212 lb Body Mass Index (BMI) 44.3 Intake & Output: Intake and Output for Last 24 Hours 08/13/24 08/14/24 08/15/24 03:59 03:59 03:59 Intake Total 2041.75 / 2041.75 300 / 300 Output Total Balance 9.75 / 2038.75 300 / 300 Lab / Micro Data 08/14/24 04:54 08/14/24 04:54 Labs: Laboratory Results - last 24 hr 08/13/24 05:09: ESR 6, Lactate Dehydrogenase 207, C-React Prot Ext Range 38.90 H 08/13/24 14:48: Hgb 13.8, Hct 41.1, Triglycerides 130, Cholesterol 222 H, LDL Cholesterol, Calc 156, VLDL Cholesterol 26, HDL Cholesterol 40, Cholesterol/HDL Ratio 5.58 08/13/24 17:56: Lactic Acid 1.2 08/13/24 20:05: Urine Color Straw, Urine Clarity Clear, Urine pH 6.0, Ur Specific [place] 1.010, Urine Protein Negative, Urine Glucose (UA) Normal, Urine Ketones Negative, Urine Occult Blood 25 H, Urine Nitrite Negative, Urine Bilirubin Negative, Urine Urobilinogen Normal, Ur Leukocyte Esterase Negative, Urine RBC 0-5 SEEN, Urine WBC 0-5 SEEN, Ur Squamous Epith Cells 0-5 SEEN, Urine Bacteria 0 SEEN, Urine Mucus 0 SEEN 08/14/24 04:54: WBC 14.3 H, RBC 4.31, Hgb 12.1, Hct 36.4 L, MCV 84.5, MCH 28.1, MCHC 33.2, RDW Std Deviation 43.2, RDW Coeff of Scarlett 13.9, Plt Count 256, MPV 9.4, Immature Gran % (Auto) 0.400, Neut % (Auto) 77.2 H, Lymph % (Auto) 12.9 L, [place] % (Auto) 8.5, Eos % (Auto) 0.7, Baso % (Auto) 0.3, Absolute Neuts (auto) 11.0 H, Absolute Lymphs (auto) 1.84, Nucleated RBC % 0, Sodium 137, Potassium 3.8, Chloride 105, Carbon Dioxide 21.8, Anion Gap 10, BUN 10, Creatinine 0.81, Estim Creat Clear Calc 69.97, Est GFR (MDRD) Non-Af 80, BUN/Creatinine Ratio 12.1, Glucose 106 H, Calcium 8.5, RICKEY-1 Antibody TNP, Sm (Shipman) Antibody TNP, DEVELOPMENT REP Antibody TNP, Scl-70 Scleroderma Ab TNP, Antichromatin Antibodies TNP, Centromere B Antibody TNP Micro: Microbiology 08/13/24 05:45 Stool Stool Occult Blood (ALISIA) - Final Occult Blood Positive Radiography Diagnostic Testing: Radiology Impression Abdomen/Pelvis CT 08/14/24 05:55 IMPRESSION: Stable findings of colitis of the left hemicolon. Reading Location: [place] [address] Physical Exam Narrative General: Alert, Oriented x3, Cooperative, No apparent distress HEENT: Atraumatic, PERRLA, EOMI, Normocephalic Oral: Moist Mucosa Neck: Supple, No JVD Lungs: Diminished normal air movement, No rhonchi, No wheeze, No rales Cardiovascular: Regular rate, Regular Rhythm, Normal S1, Normal S2, No murmurs Abdomen: Soft, LLQ TTP, Non-Distended, No Hepato-splenomegaly Extremities: No edema, Capillary Refill Less than 3 Seconds Skin: No rashes, No breakdown Musculoskeletal: No Tenderness to Palpation of Joints or Extremities Neurological: No focal neurological deficits, Motor Exam 5/5 strength throughout, Sensory exam intact to light touch and pain Psych/Mental Status: Normal Affect, Appropriate Assessment & Plan Assessment/Plan (1) GI (gastrointestinal bleed): PLAN: Plan 1. Colitis with lower GI bleed ?Continue with antibiotics, colonoscopy demonstrates ischemic colitis ? She denies any history consistent with mesenteric angina and that she has episodic abdominal pain but does not occur always with food ?Continue with clear liquid diet ?Appreciate GIs assistance ?General Surgery is also following secondary to the findings of ischemic colitis ? No anemia, however leukocytosis is increasing we will monitor 2. Hypertension ? Given the elevation in her blood pressure and the fact that she never sees doctors and she is chronically at 180 at home ? Will monitor make adjustments as necessary ?Urine analysis with no significant protein ? Will discontinue her Coreg as it dropped her pressures a little too aggressively and will continue with just lisinopril ?Lipid panels demonstrate hyperlipidemia with LDL of 156 and total cholesterol of 222, will start her on a statin DVT: SCDs Charges/Coding Visit Charges Inpatient E&M: 08544 Subs Hosp L2
[2024-08-14] MEDS: Lisinopril 10 MG Tablet PO (10:20)
[2024-08-14] MEDS: Ciprofloxacin 400 MG/200 ML BAG 200 MG IV ×2 (10:20→22:38)
[2024-08-14] MEDS: 0.9% Saline Lock 10 ML Syringe IV ×2 (10:21→21:05)
--- NOTE | 2024-08-14 13:13 | CASEMGMT ---
SANJANA GONZALEZ Assessment Face to Face with patient for initial transition planning/care coordination assessment. SANJANA GONZALEZ introduced self and role at [facility], pt voices understanding. Pt is A&Ox4 and is resting comfortably in her rollator and is calm. Pt's family @ bedside. Care providers, pharmacy, and demographics verified. Admitting dx: Colitis with LGIB LACE Strata: 2 PCP: Chavo Lr Specialists: [facility]. [facility] is currently consulted and following. Preferred Pharmacy: [facility] Insurance: [facility] Prescription Benefit: Yes LNOK: Corin (Daughter), Gasper (Son) Living Arrangements: Pt lives alone in a single story home with a ramp ADLs/IADLs: Pt states that she is indep Transportation: Self, daughter. Denies concerns DME: Rollator, cane, shower chair, grab bars. HHC/SNF: Denies history or current needs Pt?s goal: Home Plan: Anticipate DC home once medically ready. General surgery is also following regarding ischemic colitis and possible ostomy. CM to follow for additional needs that may arise. Current 6-Click score is 22. At this time, the pt denies the need for HH or OP tx and states that she feels safe returning home once medically ready. Pt states that she has support through her sister and daughter at home. Pt denies further questions or concerns at this time. CM to follow. Aleksandr Bautista RN, CM
[2024-08-14] MEDS: Atorvastatin Calcium 20 MG Tablet PO (21:07)
[2024-08-15 05:00] VITALS: BP 132/56; PULSE 81; RESP 15; TEMP 36.4; O2SAT 94
[2024-08-15] MEDS: metroNIDAZOLE 500 MG/100 ML BAG 100 MG IV (05:09)
[2024-08-15 08:20] VITALS: BP 118/54; PULSE 64; RESP 16; TEMP 36.7; O2SAT 100
[2024-08-15 09:00] VITALS: RESP 16
[2024-08-15] MEDS: Lisinopril 5 MG Tablet PO (09:30)
[2024-08-15 09:44] LABS: Absolute Neutrophil Count 10.5 X10^3/uL (2.0-7.7); Basophil# 0.07 X10^3/uL; Basophil% 0.5 % (0-1); Eosinophil# 0.11 X10^3/uL; Eosinophils% 0.8 % (0-5); Hematocrit 41.4 % (37-47); Hemoglobin 13.7 g/dL (12.0-15.0); Lymphocyte % 12.7 % (19-41); Mean Corp Hgb Conc 33.1 g/dL (32-36); Mean Corpuscular Hgb 27.6 pg (27.0-32.0); Mean Corpuscular Volume 83.5 fL (81-99); Mean Platelet Vol. 9.5 fl (6.2-12.0); Monocyte# 0.88 X10^3/uL; Monocyte% 6.6 % (0-10); NRBC Flagged by Analyzer 0 % (0-5); Neutrophil # 10.54 X10^3/uL (2.7-7.7); Neutrophil % 79.1 % (47-70); Platelet Count 282 K/mm3 (150-450); RBC Distribution Width SD 42.5 fl (35.1-43.9); Red Blood Count 4.96 M/mm3 (4.2-5.4); White Blood Count 13.3 K/mm3 (4.4-11.0)
[2024-08-15 10:00] VITALS: BP 131/68; PULSE 66; RESP 18; TEMP 36.9; O2SAT 98
[2024-08-15] MEDS: Acetaminophen 325 MG Tablet 650 MG PO (10:11)
[2024-08-15] MEDS: 0.9% Saline Lock 10 ML Syringe IV (10:12)
[2024-08-15] MEDS: Ciprofloxacin 500 MG Tablet PO (13:05)
[2024-08-15] MEDS: metroNIDAZOLE 500 MG Tablet PO (13:31)
--- NOTE | 2024-08-15 14:14 | PCM.DC ---
Discharge Instructions Diet Discharge Diet: Low fat / Low cholesterol DC O2, CPAP, BIPAP needs Home O2 Discharge instructions: No Dressing / Incision Discharge Activity: Return to Normal Activity Dressing / Incision Call your doctor if you observe: Fever of 101 or Higher, Shortness of breath, Dizziness, Fainting spells, Swelling in the ankles, Chest pain and Increased palpitations (irregular heartbeat) Follow Up Care Test Results: Test results from this visit will be discussed in further detail at your follow-up appointment, if applicable. Discharge Plan Admission Admit Date/Time: 08/13/24 07:35 Attending Provider: Oleg Johnson Primary Care Provider: Chavo Lr Discharge Orders/Prescriptions Prescriptions: New atorvastatin 20 mg Tablet 20 mg PO QHS 30 Days Qty: 30 0RF metronidazole 500 mg Tablet 500 mg PO TID 8 Days Qty: 24 0RF ciprofloxacin HCl 500 mg Tablet 500 mg PO BID 8 Days Qty: 16 0RF lisinopril 5 mg Tablet 5 mg PO DAILY 30 Days Qty: 30 0RF Referrals / Follow Up: Johny Laguerre DO [Med Staff - Active Staff] - Within 2 Weeks Chavo Lr MD [Primary Care Provider] - Within 1 Week Disposition Disposition (needs filled in before D/C Order can be placed): Home, Self Care
--- NOTE | 2024-08-15 14:17 | DS.PCM_ITS ---
Providers Date of Admission: 08/13/24 Primary Care Physician: Dr. Chavo Lr MD Consultations 08/13/24 14:21 Consult: Gastroenterology Routine Consulting Provider: Feliciano Presley Reason for Consult: GI bleed EMERGENT Consult: No MD Notified: Yes Date Notified: 08/13/24 Time Notified: 14:21 Method of Notification: ED Physician Initiated Reason For Visit: COLITIS WITH LGIB Diagnosis Discharge Diagnosis (1) Ischemic colitis: Status: Acute Code(s): K55.9 - Vascular disorder of intestine, unspecified Medications at Discharge Home Medications atorvastatin 20 mg tablet 20 mg PO QHS 30 days #30 tabs 08/15/24 ciprofloxacin HCl 500 mg tablet 500 mg PO BID 8 days #16 tabs 08/15/24 lisinopril 5 mg tablet 5 mg PO DAILY 30 days #30 tabs 08/15/24 metronidazole 500 mg tablet 500 mg PO TID 8 days #24 tabs 08/15/24 ondansetron 4 mg disintegrating tablet 4 mg PO Q8H PRN nausea and vomiting #10 tabs 08/15/24 Hospital Course Operations None Procedures Colonoscopy Summary of Care Provided Minutes Spent on Discharge: 33 Hospital Course: Per HPI: VERO PORTILLO, is a 69 F who presents to the hospital with fevers and chills yesterday and then bloody bowel movements that were bright red in appearance overnight into this morning. She presented to the emergency room with a leukocytosis to 12.1, but normal hemoglobin and electrolytes. She has some left-sided tenderness to palpation on her abdomen and CT scan in the emergency room demonstrated a long segment of mural thickening and edema of the left colon with stranding and pericolic fat and congested vascular arcade. Gastroenterology was consulted in the ER and they are recommending colonoscopy. Of note she does not follow with primary care doctors and her systolic blood pressure is routinely's in the 180s to 190s at home. She denies any lightheadedness or dizziness. Hospital Course: 1. Ischemic colitis with lower GI bleed?69-year-old female presented to hospital abdominal pain and bloody bowel movements. They were bright red in appearance which is what concerned her and brought her into the hospital. On arrival she was also found to be significantly hypertensive so she was started on blood pressure medications and as well as antibiotics, Cipro and Flagyl as she has a reaction to Keflex with shortness of breath. She has improved steadily and her white count is trending downwards. She had a colonoscopy that demonstrated ischemic colitis most significantly in her splenic flexure and in her descending colon where she has mural thickening. There is no obvious signs of vascular stenosis on CTA of her abdomen and pelvis. She is feeling much better today and did tolerate a transitional diet in the afternoon for lunch and requested to be discharged home. I discussed the case with gastroenterology who wanted to continue on antibiotics for this another week and follow-up in the office in 2 weeks. I discussed with her the plan for discharge and she expressed understanding the risks and benefits of going home home and would like to go home today. Will also plan to discharge her with a few days of Zofran for any nausea due to either diet or medications. 2. Essential hypertension/hyperlipidemia?she is chronically been hypertensive with systolics into the 180s and 190s, initially placed on Coreg and lisinopril however this dropped her pressures too quickly so we ultimately landed on lisinopril 5 mg p.o. daily. She did have a lipid panel while here in the hospital which was elevated with an LDL of 156 and cholesterol of 222 and HDL of 40 therefore she was also started on Lipitor 20 mg nightly. She will need to follow-up with her PCP to monitor her blood pressure on the outpatient side and make further adjustments as indicated. I had extensive conversations with her about the importance of continuing to follow with a primary care doctor and being consistent with her medications. Physical Exam Narrative General: Alert, Oriented x3, Cooperative, No apparent distress HEENT: Atraumatic, PERRLA, EOMI, Normocephalic Oral: Moist Mucosa Neck: Supple, No JVD Lungs: Diminished normal air movement, No rhonchi, No wheeze, No rales Cardiovascular: Regular rate, Regular Rhythm, Normal S1, Normal S2, No murmurs Abdomen: Soft, nontender, Non-Distended, No Hepato-splenomegaly Extremities: No edema, Capillary Refill Less than 3 Seconds Skin: No rashes, No breakdown Musculoskeletal: No Tenderness to Palpation of Joints or Extremities Neurological: No focal neurological deficits, Motor Exam 5/5 strength throughout, Sensory exam intact to light touch and pain Psych/Mental Status: Normal Affect, Appropriate Weight / BMI Weight Weight: 212 lb Body Mass Index (BMI) 44.3 ABG / Lab / Microbiology Data 08/15/24 09:14 08/14/24 04:54 Laboratory: Laboratory Results - last 24 hr 08/15/24 09:14: WBC 13.3 H, RBC 4.96, Hgb 13.7, Hct 41.4, MCV 83.5, MCH 27.6, MCHC 33.1, RDW Std Deviation 42.5, RDW Coeff of Scarlett 14.0, Plt Count 282, MPV 9.5, Immature Gran % (Auto) 0.300, Neut % (Auto) 79.1 H, Lymph % (Auto) 12.7 L, [place] % (Auto) 6.6, Eos % (Auto) 0.8, Baso % (Auto) 0.5, Absolute Neuts (auto) 10.5 H, Absolute Lymphs (auto) 1.70, Nucleated RBC % 0 Microbiology: Microbiology 08/13/24 05:45 Stool Stool Occult Blood (ALISIA) - Final Occult Blood Positive D/C Instructions Discharge Diet: Low fat / Low cholesterol Call your doctor if you observe: Fever of 101 or Higher, Shortness of breath, Dizziness, Fainting spells, Swelling in the ankles, Chest pain and Increased palpitations (irregular heartbeat) DC O2, CPAP, BIPAP Needs Home O2 Discharge instructions: No Meaningful Use Info Meaningful Use Meaningful Use Diagnoses (Choose all that apply): None applicable Ischemic Stroke Statin Dosing Therapy Reference: STATIN DOSE THERAPY REFERENCE: * Patients > 75 years receive moderate or high dose statin therapy. * Patients 75 years or YOUNGER should receive HIGH intensity statin dose unless contraindicated. You will be required to document reason for non-treatment if statin daily dose does not meet guidelines. HIGH DOSE STATIN THERAPY DAILY Atorvastatin > than or = to 40 mg Rosuvastatin > than or = to 20 mg Amlodipine + Atorvastatin > than or = to 2.5/40 mg Ezetimibe + Simvastatin 10/80 mg Simvastatin 80mg Discharge Plan Admission Admit Date/Time: 08/13/24 07:35 Attending Provider: Oleg Johnson Primary Care Provider: Chavo Lr Instructions Additional Instructions / Restrictions: It is okay for you to take Tylenol but try to stay away from the ibuprofen's and the aspirins as this can increase your bleeding risk slightly. Discharge Orders/Prescriptions Prescriptions: New atorvastatin 20 mg Tablet 20 mg PO QHS 30 Days Qty: 30 0RF metronidazole 500 mg Tablet 500 mg PO TID 8 Days Qty: 24 0RF ciprofloxacin HCl 500 mg Tablet 500 mg PO BID 8 Days Qty: 16 0RF lisinopril 5 mg Tablet 5 mg PO DAILY 30 Days Qty: 30 0RF ondansetron 4 mg tablet,disintegrating 4 mg PO Q8H PRN (Reason: nausea and vomiting) Qty: 10 0RF Referrals / Follow Up: Johny Laguerre DO [Med Staff - Active Staff] - Within 2 Weeks Chavo Lr MD [Primary Care Provider] - Within 1 Week Disposition Disposition (needs filled in before D/C Order can be placed): Home, Self Care Charges/Coding Visit Charges Inpatient E&M: 33272 Disch Hosp >30min
[2024-08-15 15:00] VITALS: BP 134/74; PULSE 70; RESP 18; TEMP 37.2; O2SAT 98
[2024-08-15 15:09] LABS: Anti-Centromere B Ab <0.2 AI (0.0-0.9); Anti-Chromatin <0.2 AI (0.0-0.9); Anti-Jo <0.2 AI (0.0-0.9); Anti-Scleroderma-70 AB <0.2 AI (0.0-0.9); Anti-dsDNA Ab <1 IU/mL (0-9); RNP Ab <0.2 AI (0.0-0.9); SJOGREN'S Anti-SS-A test < 0.2 AI (0.0-0.9); SJOGREN'S Anti-SS-B test 1.2 AI (0.0-0.9); Smith Ab <0.2 AI (0.0-0.9)
--- NOTE | 2024-08-15 15:16 | PCM.PN.SRG ---
Subjective Subjective Patient seen and examined during AM rounds. She is found brushing her teeth in the bathroom. She states that she has had several loose bowel movements that were nonbloody. She describes minimal cramping. Objective Data Objective Data Vital Signs: Vital Signs Temp Pulse Resp BP Pulse Ox O2 Del Method 98.4 F 66 18 131/68 H 98 Room Air 08/15/24 10:00 08/15/24 10:00 08/15/24 10:00 08/15/24 10:00 08/15/24 10:00 08/15/24 10:00 Oxygen Delivery Method Room Air Weight: 212 lb Body Mass Index (BMI) 44.3 Intake & Output: Intake and Output for Last 24 Hours 08/13/24 08/14/24 08/15/24 23:59 23:59 23:59 Intake Total 1941.75 / 1941.75 2550 / 2550 100 / 100 Output Total 2 / 2 Balance 1939.75 / 1939.75 2550 / 2550 100 / 100 Lab / Micro Data 08/15/24 09:14 08/14/24 04:54 Labs: Laboratory Results - last 24 hr 08/14/24 04:54: RICKEY-1 Antibody <0.2, SS-A/Ro IgG Antibody < 0.2, SS-B/La IgG Antibody 1.2 H, Sm (Shipman) Antibody <0.2, PEANUT FARMER Antibody <0.2, Scl-70 Scleroderma Ab <0.2, Double Strand DNA Ab <1, Antichromatin Antibodies <0.2, Centromere B Antibody <0.2 08/15/24 09:14: WBC 13.3 H, RBC 4.96, Hgb 13.7, Hct 41.4, MCV 83.5, MCH 27.6, MCHC 33.1, RDW Std Deviation 42.5, RDW Coeff of Scarlett 14.0, Plt Count 282, MPV 9.5, Immature Gran % (Auto) 0.300, Neut % (Auto) 79.1 H, Lymph % (Auto) 12.7 L, [place] % (Auto) 6.6, Eos % (Auto) 0.8, Baso % (Auto) 0.5, Absolute Neuts (auto) 10.5 H, Absolute Lymphs (auto) 1.70, Nucleated RBC % 0 Micro: Microbiology 08/13/24 05:45 Stool Stool Occult Blood (ALISIA) - Final Occult Blood Positive Physical Exam Const oriented x3 and no apparent distress Resp normal respiratory effort GI GI Narrative: Soft, nondistended, nontender to palpation?specifically of the left lower quadrant and suprapubic positions Assessment & Plan Assessment/Plan (1) Ischemic colitis: PLAN: Patient is 69-year-old female who is admitted for acute on chronic ischemic colitis of the left colon spanning from the splenic flexure distally. She is status post colonoscopy with by gastroenterology but no active bleeding was identified. Patient appears further clinically improved today with a improvement in her leukocytosis also noted on her labs. Abdominal exam is benign. She tolerated liquid diet without difficulty and is having bowel movements without pain. Discussed with hospitalist service and plan is for discharge to home with outpatient follow-up expected with gastroenterology. Would suggest patient be evaluated potentially by vascular surgery for consideration to see if she has any mesenteric stenoses that could be improved to mitigate her risk for future bouts of ischemic colitis. Alternatively, could recommend referral to colorectal surgery for consideration of elective segmental colectomy. Patient appears somewhat overwhelmed with these follow-up expectations. Silver Ferro MD General Surgery Endocrine Surgery Pager: [facility] [address] [place] [address], [address] [place] [address] Office: [phone] Charges/Coding Visit Charges Inpatient E&M: 34380 [facility] Hosp L2
[2024-08-17 11:08] LABS: Cytoplasmic Ab (C-ANCA) <1:20 titer (Neg:<1:20); IgG, Quant 663 mg/dL (586-1602); Immunoglobulin A 114 mg/dL (87-352); Immunoglobulin E 6 IU/mL (6-495); Immunoglobulin G, Subclass 1 338 mg/dL (248-810); Immunoglobulin G, Subclass 2 171 mg/dL (130-555); Immunoglobulin G, Subclass 3 79 mg/dL (15-102); Immunoglobulin G, Subclass 4 14 mg/dL (2-96); Immunoglobulin M 237 mg/dL (26-217); Perinuclear Ab (P-ANCA) <1:20 titer (Neg:<1:20)
== END 2024-08-15 16:00 | disposition home or self-care (01) | DRG 395 ==
LOC: ED 08:09 → MS3 08:17
PROVIDERS: Internal Medicine Gastroenterology; Surgery; Admitting Provider Family Medicine; Emergency Provider Emergency Medicine; PCP Family Medicine; Visit Provider Family Medicine
PROC: 0DJD8ZZ Inspection of Lower Intestinal Tract, Via Natural or Artificial Opening Endoscopic (ICD-10-PCS; CPT 45378; principal; 2024-08-13 15:55)
DX: K55.052 Diffuse acute (reversible) ischemia of intestine, part unspecified (principal); E78.5 Hyperlipidemia, unspecified; I10 Essential (primary) hypertension; K55.1 Chronic vascular disorders of intestine; Z79.899 Other long term (current) drug therapy; Z87.891 Personal history of nicotine dependence
CPT/HCPCS: 36415; 74174; 74177; 80048; 80061; 80076; 81001; 82274; 82784; 82785; 82787; 83605; 83615; 85014; 85018; 85025; 85610; 85652; 85730; 86037; 86140; 86225; 86235; 88305; 88342; 93005; 99284; Q9967; A4216; J0744; J2405

== ENCOUNTER → 2024-09-20 | Outpatient (CLI) | payer MEDICARE, SELFPAY ==
--- NOTE | 2024-09-20 14:30 | CT_ITS ---
PROCEDURE: CTA ABD/PELVIS W/WO CONTRAST 09/20/2024 REASON FOR EXAM: ISCHEMIC COLITIS TECHNIQUE: CTA ABD/PELVIS W/WO CONTRAST Multiplanar Sagittal and Coronal images were obtained. CONTRAST: Isovue 370 VOLUME: 100 mL One or more dose reduction techniques were used (e.g., Automated exposure control, adjustment of the mA and/or kV according to patient size, use of iterative reconstruction technique). RADIATION DOSE SUMMARY: CTDlvol: 43 mGy DLP: 1133 mGycm COMPARISON: 08/14/2024 FINDINGS: Under aerated lung bases. Stable 6 mm pleural-based right lower lobe nodular density. Normal heart size. Multiple liver cysts. Normal gallbladder, pancreas, spleen, adrenal glands and left kidney. 5 mm right renal angiomyolipoma. No hydronephrosis. Normal bladder. Normal uterus and ovaries. No retroperitoneal or pelvic adenopathy. No free air. Nondistended bowel. Normal appendix. Diverticulosis. Interval resolution of colitis. Lumbar spine scoliosis and degeneration. No acute abdominal wall findings. The aortoiliac system, and branch vessels, is unremarkable. No high-grade stenosis, dissection, or aneurysm. CT/CTA Abd/Pelvis W/WO Contrast IMPRESSION: Interval resolution of colitis. No acute findings. Reading Location: [facility]
== END | disposition home or self-care (01) ==
LOC: CT 14:29
PROVIDERS: PCP Family Medicine; Referring Provider Internal Medicine Gastroenterology; Visit Provider Internal Medicine Gastroenterology
DX: K55.9 Vascular disorder of intestine, unspecified (principal)
CPT/HCPCS: 74174; Q9967

== ENCOUNTER → 2024-10-08 | Outpatient (CLI) | payer MEDICARE, SELFPAY ==
--- NOTE | 2024-10-08 10:30 | MRI_ITS ---
PROCEDURE: MRCP ABDOMEN WITHOUT CONTRAST 10/08/2024 REASON FOR EXAM: R/O PRIMARY SCLEROSING CHOLANGITIS TECHNIQUE: MRCP ABDOMEN WITHOUT CONTRAST Multiplanar and multisequence images were obtained. None COMPARISON: Prior CT scan of the abdomen and pelvis dated September 20, 2024. FINDINGS: Liver: Diffuse fatty infiltration of the liver. Multiple cysts are seen throughout the right and left lobes of the liver. Biliary: Findings suggestive of primary sclerosing cholangitis within the intrahepatic biliary ducts. There is a beaded dilatation of bile ducts in both lobes. Pancreas: Unremarkable Spleen: Unremarkable Adrenals: Unremarkable Kidneys: Unremarkable MRI/MRCP Abdomen without Contrast IMPRESSION: Multiple hepatic cysts. Findings suggestive of primary sclerosing cholangitis. Reading Location: [place] [address]
== END | disposition home or self-care (01) ==
PROVIDERS: PCP Family Medicine; Referring Provider Internal Medicine Gastroenterology; Visit Provider Internal Medicine Gastroenterology
DX: R89.9 Unspecified abnormal finding in specimens from other organs, systems and tissues (principal)
CPT/HCPCS: 74181